=== PATIENT | female | born 1955 | race Hispanic/Latino ===

== ENCOUNTER 2017-02-14 10:08 | Emergency (ER) | payer MEDICAID, SELFPAY ==
[2017-02-14 10:08] VITALS: BMI 34.0
[2017-02-14] MEDS ORDERED: Sodium Chloride 0.9% 1,000 ML IV STA (10:32)
[2017-02-14 11:06] LABS: ADD MANUAL DIFF? NO
--- NOTE | 2017-02-14 11:08 | ED PDOC ---
Arrival/HPI - General Historian: Patient - History of Present Illness Time/Duration: Prior to Arrival, < week Symptom Onset: Gradual Severity Level: 5 - General Chief Complaint: Flu-like Symptoms Time Seen by Provider: 02/14/17 10:09 - History of Present Illness Narrative History of Present Illness (Text): 02/14/17 11:05 This is a 62 year old female with a PMH significant for HTN and HLD presenting with a 3 days history of nausea, vomiting, and diarrhea. The patient states that she has been vomiting approximately every 4 hours for the past three days. The patient notes that she has had 3 episodes of diarrhea that she later re- classified as loose stool. The patient notes that her HTN medication was recently changed from amlodipine to losartan. The patient sites this as the cause of her symptoms and has stopped taking the medication. The patient also has ceased take her cholesterol medication because she has been unable to keep anything down. The patient also notes a headache and an intermittent cough. The patient denies fever, chills, vision changes, tinnitus, chest pain, SOB, changes in urine, and extremity weakness/paresthesias. PMH: HTN, HLD Allergy: NKDA Surg- x 2 Soc- Wuit smoking 30 years ago, denies EtOH/Illicit Drugs (Lucian Turner) Past Medical History - Provider Review Nursing Documentation Reviewed: Yes - Past History Past History: Non-Contributing - Infectious Disease Hx of Infectious Diseases: None - Tetanus Immunization Tetanus Immunization: Up to Date - Cardiac Hx Hyperlipemia: Yes Hx Hypertension: Yes - Pulmonary Hx Asthma: Yes - Neurological Hx Transient Ischemic Attacks (TIA): Yes - Musculoskeletal/Rheumatological Hx Arthritis: Yes Hx Falls: No - Psychiatric Hx Depression: No Hx Substance Use: No - Surgical History Hx Section: Yes (X2) Other/Comment: cyst removal from head - Anesthesia Hx Anesthesia: Yes Hx Anesthesia Reactions: No Hx Malignant Hyperthermia: No - Suicidal Assessment Feels Threatened In Home Enviroment: No Family/Social History - Physician Review Nursing Documentation Reviewed: Yes Family/Social History: No Known Family HX Smoking Status: Former Smoker Hx Alcohol Use: No Hx Substance Use: No Hx Substance Use Treatment: No Allergies/Home Meds Allergies/Adverse Reactions: Allergies No Known Allergies Allergy (Verified 10/08/15 16:11) Home Medications: Home Meds Medication Instructions Recorded Confirmed Labetalol [Trandate] 100 mg PO DAILY 02/14/17 02/14/17 Review of Systems - Physician Review All systems were reviewed & negative as marked: Yes - Review of Systems Constitutional: Fatigue. absent: Fevers Eyes: absent: Vision Changes ENT: absent: Tinnitus Respiratory: Cough. absent: SOB Cardiovascular: absent: Chest Pain Gastrointestinal: Abdominal Pain, Diarrhea, Nausea, Vomiting. absent: Constipation, Hematochezia, Hematemesis Musculoskeletal: absent: Arthralgias Skin: absent: Rash Neurological: Headache (frontal). absent: Dizziness, Focal Weakness Physical Exam Temperature: Afebrile Blood Pressure: Hypertensive Pulse: Regular Respiratory Rate: Normal Appearance: Positive for: Comfortable, Ill-Appearing Pain Distress: None Mental Status: Positive for: Alert and Oriented X 3 - Systems Exam Head: Present: Atraumatic, Normocephalic Pupils: Present: PERRL Extroacular Muscles: Present: EOMI Conjunctiva: Present: Normal Mouth: Present: Moist Mucous Membranes Neck: Present: Normal Range of Motion. No: Lymphadenopathy Respiratory/Chest: Present: Clear to Auscultation, Good Air Exchange. No: Respiratory Distress, Accessory Muscle Use Cardiovascular: Present: Regular Rate and Rhythm, Normal S1, S2. No: Murmurs Abdomen: Present: Tenderness (diffuse lower abdominal pain), Normal Bowel Sounds , Scars. No: Distention, Peritoneal Signs, Rebound, Guarding, McBurney's Point Tender, Rovsing's Sign Present, Mass/Organomegaly Upper Extremity: Present: Normal Inspection, Normal ROM, NORMAL PULSES, Neurovascularly Intact. No: Cyanosis, Edema Lower Extremity: Present: Normal Inspection, NORMAL PULSES, Neurovascularly Intact. No: Edema, CALF TENDERNESS Neurological: Present: GCS=15, CN II-XII Intact Skin: Present: Warm, Dry, Normal Color. No: Rashes Psychiatric: Present: Alert, Oriented x 3 Vital Signs Temp Pulse Resp BP Pulse Ox 02/14/17 15:20 98.0 F 85 18 145/82 99 02/14/17 13:18 98.0 F 90 18 154/97 H 97 02/14/17 10:16 98.6 F 91 H 16 150/107 H 95 Medical Decision Making - Lab Interpretations Interpretation: Abnormal lab values (Hypokalemia- replaced. CBC/CMP/Serology otherwise normal) - RAD Interpretation Reconditioning Associate: ED Physician, Radiologist ED Course and Treatment: 02/14/17 14:32 Impression: This is a 62 year old female with a PMH significant for HTN and HLD presenting with a 3 days history of nausea, vomiting, and diarrhea. The patient appears clinically stable. She had a few episodes of retching, but during her stay she did not vomit. The patient reported an improvement in her symptoms with fluid bolus and zofran. Differential: Viral Gastroenteritis PUD Fle Plan: CBC, CMP, AMylase, Lipase, LDH, Mag, Phos, Influenza CXR CT Abd/Pelv UA Zofran 4mg IV 1L NS x 2 20meq K Prior Visits: 07/22/13- Cholelithiasis NOS Progress Note: The patient was seen and examined at the bedside. The patient clinically improved during the visit. The patient underwent CXR and CT abd/pelv which both returned negative for acute pathology. The patient Did not vomit during her stay. The patient received two 1L boluses of NS for volume resuscitation and 4mg of zofran for nausea. The patient reported a resolution of symptoms. The passed tolerated PO fluid challenge prior to discharge. The patient was seen sleeping comfortably prior to discharge. The patient was medically stablized for discharge. The patient's condition and discharge plan were discussed prior to discharge. The patient is in agreement with the plan. ( Lucian Turner) 02/14/17 16:43 pt seen with resident. abd pain, n/v/d, cough. - ct, labs unremarkable. suspected gastro/viral syndrome. advise outpt f/u and return precautions ( Jordi Pagan) - Lab Interpretations Lab Results: 02/14/17 11:00 02/14/17 11:00 Lab Results 02/14/17 11:00: WBC 8.8, RBC 5.12, Hgb 16.0, Hct 46.5, MCV 90.8, MCH 31.3, MCHC 34.4, RDW 12.4, Plt Count 294, MPV 11.1 H, Gran % 65.8, Lymph % (Auto) 23.9, [place] % (Auto) 10.1 H, Eos % (Auto) 0.1 L, Baso % (Auto) 0.1, Gran # 5.79, Lymph # 2.1, [place] # 0.9 H, Eos # 0.0, Baso # 0.01, Sodium 137, Potassium 3.3 L, Chloride 93 L, Carbon Dioxide 33, Anion Gap 14, BUN 20, Creatinine 0.6, Est GFR ( Amer) > 60, Est GFR (Non-Af Amer) > 60, Random Glucose 143 H, Calcium 9.6, Phosphorus 4.3, Magnesium 1.8, Total Bilirubin 1.1, AST 26, ALT 20, Alkaline Phosphatase 87, Lactate Dehydrogenase 448, Total Protein 7.8, Albumin 4.4, Globulin 3.4, Albumin/Globulin Ratio 1.3, Amylase 67, Lipase 58, Urine Color Dark yellow, Urine Appearance Sl cloudy, Urine pH 5.5, Ur Specific [place] >= 1.030, Urine Protein Trace H, Urine Glucose (UA) Negative, Urine Ketones Trace H, Urine Blood Negative, Urine Nitrate Negative, Urine Bilirubin Small H, Urine Urobilinogen 0.2, Ur Leukocyte Esterase Negative, Urine RBC 0 - 2 , Urine WBC 0 - 2, Ur Epithelial Cells 4 - 5, Urine Bacteria Mod, Influenza Typ A,B (EIA) Negative for flu a/b - RAD Interpretation Narrative RAD Interpretations (Text): 02/14/17 14:40 CXR- LUNGS: The lungs are well inflated and clear. PROCEDURE: CT Abdomen and Pelvis with contrast HISTORY: rlq pain COMPARISON: None. TECHNIQUE: Contrast dose: 100 cc of Omni 350 Radiation dose: Total exam DLP = 844 mGy-cm. FINDINGS: LOWER THORAX: Unremarkable. LIVER: Unremarkable. No gross lesion or ductal dilatation. GALLBLADDER AND BILE DUCTS: Unremarkable. PANCREAS: Unremarkable. No gross lesion or ductal dilatation. SPLEEN: Unremarkable. ADRENALS: Unremarkable. No mass. KIDNEYS AND URETERS: Unremarkable. No hydronephrosis. No solid mass. VASCULATURE: Unremarkable. No aortic aneurysm. BOWEL: Unremarkable. No obstruction. No gross mural thickening. Mild diverticulosis APPENDIX: Normal appendix. PERITONEUM: Unremarkable. No free fluid. No free air. LYMPH NODES: Unremarkable. No enlarged lymph nodes. BLADDER: Unremarkable. REPRODUCTIVE: Unremarkable. BONES: No acute fracture. OTHER FINDINGS: None. IMPRESSION: No acute findings (YueLucian nicholson) Radiology Orders: 02/14/17 10:36 CHEST PORTABLE [RAD] Stat 02/14/17 11:30 ABD & PELVIS IV CONTRAST ONLY [CT] Stat - Medication Orders Current Medication Orders: Discontinued Medications Sodium Chloride (Sodium Chloride 0.9%) 1,000 mls @ 999 mls/hr IV .Q1H1M STA Stop: 02/14/17 11:32 Last Admin: 02/14/17 10:38 Dose: 999 MLS/HR eMAR Start Stop Document 02/14/17 10:38 OCS (Rec: 02/14/17 10:51 OCS [id number]) Intravenous Solution Start Date 02/14/17 Start Time 10:51 End Date 02/14/17 End time 11:52 Total Infusion Time 61 Iodixanol (Visipaque 320 Mg/Ml 100 Ml) Confirm Administered Dose 100 ml IV .STK- MED ONE Stop: 02/14/17 13:55 Iohexol (Omnipaque 350 100 Ml) Confirm Administered Dose 350 mg .ROUTE .STK-MED ONE Stop: 02/14/17 13:21 Ondansetron HCl (Zofran Inj) 4 mg IVP STAT STA Stop: 02/14/17 10:35 Last Admin: 02/14/17 10:51 Dose: 4 MG IVP Administration Document 02/14/17 10:51 OCS (Rec: 02/14/17 10:51 OCS [id number]) Charges for Administration # of IVP Administrations 1 Potassium Chloride (Potassium Chloride Oral Soln) 20 meq PO STAT STA Stop: 02/14/17 12:41 Last Admin: 02/14/17 13:05 Dose: 20 MEQ Disposition/Present on Arrival - Present on Arrival Any Indicators Present on Arrival: No History of DVT/PE: No History of Uncontrolled Diabetes: No Urinary Catheter: No History of Decub. Ulcer: No History Surgical Site Infection Following: None - Disposition Have Diagnosis and Disposition been Completed?: Yes Disposition Time: 14:42 Patient Plan: Discharge - Disposition Diagnosis: Abdominal pain Disposition: HOME/ ROUTINE Condition: GOOD Discharge Instructions (ExitCare): Abdominal Pain (ED), Gastritis (ED), Acute Nausea and Vomiting (ED), Ondansetron (By mouth) Print Language: IRISH Additional Instructions: 1.) Take zofran as needed (every 8 hours) 2.) Maintain adequate hydration 3.) Follow up with PMD following discharge. 4.) If symptoms return, please return to the ED for evaluation 5.) Take all medications in accordance with prescriptions Prescriptions: Ondansetron [Zofran] 4 mg PO Q8H PRN #10 tab PRN Reason: Nausea/Vomiting Referrals: Rosanna Olson MD [Primary Care Provider] - Follow up with primary
[2017-02-14 11:13] LABS: PH,URINE 5.5 (4.7-8.0); URINE BILIRUBIN SMALL (NEGATIVE); URINE BLOOD NEGATIVE (NEGATIVE); URINE GLUCOSE (UA) NEGATIVE (NEGATIVE); URINE KETONE TRACE mg/dL (NEGATIVE); URINE LEUKOCYTE ESTERASE NEGATIVE Leu/uL (NEGATIVE); URINE PROTEIN TRACE mg/dL (<30 mg/dL); URINE UROBILINOGEN 0.2 E.U./dL (<1 E.U./dL)
[2017-02-14 11:17] LABS: URINE APPEARANCE SL CLOUDY (CLEAR); URINE COLOR DARK YELLOW (YELLOW)
[2017-02-14 11:18] LABS: BASO # 0.01 K/mm3 (0.0-2.0); BASO % 0.1 % (0.0-3.0); EOS % 0.1 % (1.5-5.0); GRAN # 5.79 (1.4-6.5); GRAN % 65.8 % (50.0-68.0); HEMATOCRIT 46.5 % (36.0-48.0); LYMPH # 2.1 (1.2-3.4); LYMPH % 23.9 % (22.0-35.0); MEAN CELL VOLUME 90.8 fL (80.0-105.0); MEAN CORPUSCULAR HEMOGLOBIN 31.3 pg (25.0-35.0); MEAN CORPUSCULAR HGB CONC 34.4 g/dl (31.0-37.0); MEAN PLATELET VOLUME 11.1 fl (7.0-11.0); MONO # 0.9 (0.1-0.6); MONO % 10.1 % (1.0-6.0); PLATELET COUNT 294 10^3/uL (120.0-450.0); RED CELL DISTRIBUTION WIDTH 12.4 % (11.5-14.5); WHITE BLOOD COUNT 8.8 10^3/ul (4.5-11.0)
[2017-02-14 11:22] LABS: URINE BACTERIA MOD (NEG); URINE RBC 0 - 2 /hpf (0-2); URINE WBC 0 - 2 /hpf (0-6)
--- NOTE | 2017-02-14 11:24 | RAD ---
HISTORY: Cough COMPARISON: 11/30/2012. FINDINGS: LUNGS: The lungs are well inflated and clear. PLEURA: No significant pleural effusion identified, no pneumothorax apparent. CARDIOVASCULAR: Normal. OSSEOUS STRUCTURES: There is mild dextroscoliosis in the thoracic spine. VISUALIZED UPPER ABDOMEN: Normal. OTHER FINDINGS: None. IMPRESSION: No active pulmonary disease.
[2017-02-14 11:25] LABS: ALB/GLOB RATIO 1.3 (1.1-1.8); ALKALINE PHOSPHATASE 87 U/L (38-133); ALT/SGPT 20 U/L (7-56); AMYLASE 67 U/L (35-125); AST/SGOT 26 U/L (15-39); BILIRUBIN,TOTAL 1.1 mg/dL (0.2-1.3); BLOOD UREA NITROGEN 20 mg/dL (7-21); CALCIUM 9.6 mg/dL (8.4-10.5); CARBON DIOXIDE 33 mmol/L (21-33); CHLORIDE 93 mmol/L (98-107); GFR AFRICAN-AMERICAN > 60; GLUCOSE,RANDOM 143 mg/dL (70-110); LIPASE 58 U/L (23-300); MAGNESIUM 1.8 mg/dL (1.7-2.2); PHOSPHOROUS 4.3 mg/dL (2.5-4.5); POTASSIUM 3.3 mmol/L (3.6-5.0); SODIUM 137 mmol/L (132-148); TOTAL PROTEIN 7.8 g/dL (5.8-8.3)
[2017-02-14] MEDS ORDERED: Potassium Chloride 20 mEq/15 ml LIQ UD PO STA (12:40)
[2017-02-14 13:19] VITALS: RESP 18; TEMP 98
[2017-02-14] MEDS ORDERED: Iohexol 350 MG/100 ML VIAL ONE (13:20)
[2017-02-14] MEDS ORDERED: Iodixanol 320 MG/ML 100 ML BOTTLE IV ONE (13:54)
--- NOTE | 2017-02-14 14:27 | CT ---
PROCEDURE: CT Abdomen and Pelvis with contrast HISTORY: rlq pain COMPARISON: None. TECHNIQUE: Contrast dose: 100 cc of Omni 350 Radiation dose: Total exam DLP = 844 mGy-cm. FINDINGS: LOWER THORAX: Unremarkable. LIVER: Unremarkable. No gross lesion or ductal dilatation. GALLBLADDER AND BILE DUCTS: Unremarkable. PANCREAS: Unremarkable. No gross lesion or ductal dilatation. SPLEEN: Unremarkable. ADRENALS: Unremarkable. No mass. KIDNEYS AND URETERS: Unremarkable. No hydronephrosis. No solid mass. VASCULATURE: Unremarkable. No aortic aneurysm. BOWEL: Unremarkable. No obstruction. No gross mural thickening. Mild diverticulosis APPENDIX: Normal appendix. PERITONEUM: Unremarkable. No free fluid. No free air. LYMPH NODES: Unremarkable. No enlarged lymph nodes. BLADDER: Unremarkable. REPRODUCTIVE: Unremarkable. BONES: No acute fracture. OTHER FINDINGS: None. IMPRESSION: No acute findings
[2017-02-14 15:22] VITALS: BP 145/82; PULSE 85; O2SAT 99
== END 2017-02-14 15:22 | disposition home or self-care (01) ==
LOC: ED 10:08
DX: R10.9 Unspecified abdominal pain (principal); E78.5 Hyperlipidemia, unspecified; I10 Essential (primary) hypertension; Z87.891 Personal history of nicotine dependence
CPT/HCPCS: 71010; 74177; 80053; 81001; 82150; 83615; 83690; 83735; 84100; 85025; 87804; 96361; 96374; 99283; J2405; J7040; Q9967

== ENCOUNTER 2017-02-28 10:31 | Emergency (ER) | payer MEDICAID ==
[2017-02-28 10:31] VITALS: BMI 34.0
[2017-02-28 10:50] VITALS: TEMP 97.3
--- NOTE | 2017-02-28 10:53 | ED PDOC ---
Arrival/HPI - General Time Seen by Provider: 02/28/17 10:38 Historian: Patient - History of Present Illness Narrative History of Present Illness (Text): 02/28/17 10:41 A 62 year old female, whose past medical history includes arthritis, presents to the emergency department complaining of right knee pain for the past 6 days. Patient reports she had a mechanical fall onto the right knee 6 days ago, after which pain began. She states she is unsure how she feel. Pain is worse with walking. She denies any head trauma, hip pain or any other complaints at this time. Patient mention she is scheduled for surgery on 03/20/17 and is asking to have a EKG and Chest X-ray performed for pre-operative clearance. PMD: Dr. Olson Time/Duration: Other (6 days ago) Symptom Onset: Sudden Symptom Course: Unchanged Quality: Other Activities at Onset: Light Modifying Factors (Text): worse when walking Context: Walking Past Medical History - Provider Review Nursing Documentation Reviewed: Yes - Past History Past History: Non-Contributing - Infectious Disease Hx of Infectious Diseases: None - Tetanus Immunization Tetanus Immunization: Up to Date - Cardiac Hx Hyperlipemia: Yes Hx Hypertension: Yes - Pulmonary Hx Asthma: Yes - Neurological Hx Transient Ischemic Attacks (TIA): Yes - Musculoskeletal/Rheumatological Hx Arthritis: Yes Hx Falls: No - Psychiatric Hx Depression: No Hx Substance Use: No - Surgical History Hx Section: Yes (X2) Other/Comment: cyst removal from head - Anesthesia Hx Anesthesia: Yes Hx Anesthesia Reactions: No Hx Malignant Hyperthermia: No - Suicidal Assessment Feels Threatened In Home Enviroment: No Family/Social History - Physician Review Nursing Documentation Reviewed: Yes Family/Social History: Unknown Family HX Smoking Status: Former Smoker Hx Alcohol Use: No Hx Substance Use: No Hx Substance Use Treatment: No Allergies/Home Meds Allergies/Adverse Reactions: Allergies No Known Allergies Allergy (Verified 10/08/15 16:11) Home Medications: Home Meds Medication Instructions Recorded Confirmed amLODIPine [Norvasc] 5 mg PO DAILY 02/28/17 02/28/17 Review of Systems - Physician Review All systems were reviewed & negative as marked: Yes - Review of Systems Constitutional: absent: Other (head trauma) Musculoskeletal: Other (right knee pain; no hip pain) Physical Exam Vital Signs Reviewed: Yes Vital Signs Temp Pulse Resp BP Pulse Ox 02/28/17 12:21 74 18 138/75 97 02/28/17 11:17 79 18 142/77 97 02/28/17 11:03 97.3 F L 83 18 137/114 H 97 02/28/17 10:44 97.3 F L 83 17 137/114 H 98 Temperature: Afebrile Blood Pressure: Hypertensive Pulse: Regular Respiratory Rate: Normal Appearance: Positive for: Well-Appearing, Non-Toxic, Comfortable Pain Distress: None Mental Status: Positive for: Alert and Oriented X 3 - Systems Exam Head: Present: Atraumatic, Normocephalic Conjunctiva: Present: Normal Mouth: Present: Moist Mucous Membranes Neck: Present: Normal Range of Motion Upper Extremity: Present: Normal Inspection. No: Cyanosis, Edema Lower Extremity: Present: NORMAL PULSES, Normal ROM, Tenderness (tenderness with palpation to the right pattela), Neurovascularly Intact. No: Edema, CALF TENDERNESS, Cyanosis, Temperature Abnormalties Neurological: Present: GCS=15, CN II-XII Intact, Speech Normal Skin: Present: Warm, Dry, Normal Color. No: Rashes Psychiatric: Present: Alert, Oriented x 3, Normal Insight, Normal Concentration Medical Decision Making ED Course and Treatment: 02/28/17 10:41 Impression: A 62 year old female with right knee pain after a mechanical fall. Patient also requesting EKG and Chest X-ray. Differential Diagnosis include but are not limited to: fracture vs. sprain Plan: -- EKG -- Chest X-ray -- Right Knee pain -- Reassess and disposition Prior Visits: Notes and results from previous visits were reviewed. The patient last presented to the emergency department on 02/14/17 for evaluation of nausea, vomiting and diarrhea. Progress Notes: 02/28/17 11:02 EKG: Ordered, reviewed, and independently interpreted the EKG. Rate : 69 BPM Rhythm : NSR Interpretation : No ST-segment elevations or depressions, no T-wave inversions, normal intervals. 02/28/17 13:07 x-ray negative for fracture. patient to be discharged with follow up instructions. - RAD Interpretation Radiology Orders: 02/28/17 10:47 CHEST TWO VIEWS (PA/LAT) [RAD] Stat KNEE W PATELLA RIGHT 3 VIEW [RAD] Stat - Scribe Statement The provider has reviewed the documentation as recorded by the Scribe Liza Calderon Provider Scribe Attestation: All medical record entries made by the Scribe were at my direction and personally dictated by me. I have reviewed the chart and agree that the record accurately reflects my personal performance of the history, physical exam, medical decision making, and the department course for this patient. I have also personally directed, reviewed, and agree with the discharge instructions and disposition. Disposition/Present on Arrival - Present on Arrival Any Indicators Present on Arrival: No History of DVT/PE: No History of Uncontrolled Diabetes: No Urinary Catheter: No History Surgical Site Infection Following: None - Disposition Have Diagnosis and Disposition been Completed?: Yes Diagnosis: Contusion of knee, right Disposition: HOME/ ROUTINE Disposition Time: 13:00 Patient Plan: Discharge Condition: GOOD Discharge Instructions (ExitCare): Knee Pain (ED) Additional Instructions: Thank you for letting us take care of you today. Your provider was Dr. Joshi. You were treated for a knee contusion. The emergency medical care you received today was directed at your acute symptoms. If you were prescribed any medication, please fill it and take as directed. It may take several days for your symptoms to resolve. Return to the Emergency Department if your symptoms worsen, do not improve, or if you have any other problems. Please contact your doctor or call one of the physicians/clinics you have been referred to that are listed on the Patient Visit Information form that is included in your discharge packet. Bring any paperwork you were given at discharge with you along with any medications you are taking to your follow up visit. Our treatment cannot replace ongoing medical care by a primary care provider (PCP) outside of the emergency department. Thank you for allowing the [facility] team to be part of your care today. Follow up with your doctor in 3-4 days for re-evaluation.
--- NOTE | 2017-02-28 13:02 | RAD ---
PROCEDURE: Right Knee Radiographs. HISTORY: r/o fx COMPARISON: None. FINDINGS: BONES: Normal. No fracture. JOINTS: Joint space narrowing is seen in the medial joint compartment and the patellofemoral joint JOINT EFFUSION: None. OTHER FINDINGS: None. IMPRESSION: Joint space narrowing in the medial joint compartment and patellofemoral joint
--- NOTE | 2017-02-28 13:03 | RAD ---
HISTORY: r/o infiltrate COMPARISON: 02/14/2017 TECHNIQUE: Chest PA and lateral FINDINGS: LUNGS: No active pulmonary disease. PLEURA: No significant pleural effusion identified. No pneumothorax apparent. CARDIOVASCULAR: Normal. OSSEOUS STRUCTURES: No significant abnormalities. VISUALIZED UPPER ABDOMEN: Normal. OTHER FINDINGS: None. IMPRESSION: No active disease.
[2017-02-28 13:18] VITALS: BP 145/85; PULSE 68; RESP 16; O2SAT 98
--- NOTE | 2017-02-28 14:00 | CARD ---
APPROVED REPORT EKG Measurement Heart [id number] <Conclusion> Normal sinus rhythm Normal ECG
== END 2017-02-28 13:26 | disposition home or self-care (01) ==
LOC: ED 10:31
DX: S80.01XA Contusion of right knee, initial encounter (principal); W19.XXXA Unspecified fall, initial encounter; E78.5 Hyperlipidemia, unspecified; I10 Essential (primary) hypertension; M19.90 Unspecified osteoarthritis, unspecified site; Z86.73 Personal history of transient ischemic attack (TIA), and cerebral infarction without residual deficits; Z87.891 Personal history of nicotine dependence

== ENCOUNTER 2017-05-03 14:09 | Observation (INO) | payer MEDICAID ==
[2017-05-03 14:10] VITALS: BMI 34.0
[2017-05-03 14:41] VITALS: TEMP 98.9
[2017-05-03] MEDS ORDERED: Morphine 4 mg/ml ISec IVP STA (15:12)
[2017-05-03] MEDS ORDERED: Sodium Chloride 0.9% 1,000 ML IV STA (15:12)
[2017-05-03] MEDS ORDERED: Iohexol 240 (50 ml) ONE (15:17)
[2017-05-03 15:40] LABS: ADD MANUAL DIFF? NO
--- NOTE | 2017-05-03 15:42 | ED PDOC ---
Arrival/HPI - General Chief Complaint: Dizziness/Lightheaded Time Seen by Provider: 05/03/17 14:47 Historian: Patient - History of Present Illness Narrative History of Present Illness (Text): 05/03/17 15:36 62 yo F with past medical history of sleep apnea, complains of one-month history of intermittent pressure-like pain in the right lower quadrant that is non-radiating associated with nausea and decreased appetite. Patient presents to the emergency room today because she was unable to sleep at all last night due to the pain, she states that she has not had any type of medical evaluation regarding her current symptoms, she also has never had the following symptoms in the past, although she adds that her current symptoms are not worse than usual. States that she is here because she is tired of experiencing the pain. Otherwise: (-) dizziness - contrary to triage note, (-) chest pain, (-) vomiting , (-) diarrhea, (-) fever, (-) melena, (-) hematochezia, (-) changes in her stool, (-) weight loss, (-) urinary symptoms, (-) vaginal bleeding, (-) vaginal discharge, (-) prior colonoscopy, (-) prior endoscopy. Has history of prior abdominal surgery - 2 C-sections. ROXANA Olson Past Medical History - Provider Review Nursing Documentation Reviewed: Yes - Past History Past History: Non-Contributing - Infectious Disease Hx of Infectious Diseases: None - Tetanus Immunization Tetanus Immunization: Up to Date - Reproductive Menopause: Yes - Cardiac Hx Hypertension: Yes - Pulmonary Hx Asthma: Yes - Neurological Hx Transient Ischemic Attacks (TIA): Yes - HEENT Hx HEENT Disorder: No - Renal Hx Renal Disorder: No - Endocrine/Metabolic Hx Endocrine Disorders: No - Musculoskeletal/Rheumatological Hx Arthritis: Yes Hx Falls: No - Gastrointestinal Hx Gastrointestinal Disorders: No - Genitourinary/Gynecological Hx Genitourinary Disorders: No - Psychiatric Hx Depression: No Hx Substance Use: No - Surgical History Hx Section: Yes (X2) Other/Comment: cyst removal from head - Anesthesia Hx Anesthesia: Yes Hx Anesthesia Reactions: No Hx Malignant Hyperthermia: No - Suicidal Assessment Feels Threatened In Home Enviroment: No Family/Social History - Physician Review Nursing Documentation Reviewed: Yes Family/Social History: No Known Family HX Smoking Status: Former Smoker Hx Alcohol Use: No Hx Substance Use: No Hx Substance Use Treatment: No Allergies/Home Meds Allergies/Adverse Reactions: Allergies No Known Allergies Allergy (Verified 05/03/17 14:41) Home Medications: Home Meds Medication Instructions Recorded Confirmed amLODIPine [Norvasc] 5 mg PO DAILY 02/28/17 05/03/17 Review of Systems - Review of Systems Constitutional: Normal. absent: Fatigue, Weight Change, Fevers Respiratory: Normal. absent: SOB, Cough, Sputum Cardiovascular: Normal. absent: Chest Pain, Palpitations, Edema Gastrointestinal: Normal, Abdominal Pain (chronic RLQ abdominal pain, chronic intermittent burning sensation to the epigastric area radiating to the chest), Nausea, Appetite Changes. absent: Stool Changes Genitourinary Female: Normal. absent: Dysuria, Frequency, Hematuria Musculoskeletal: Normal, Back Pain (chronic low back pain). absent: Arthralgias , Neck Pain Skin: Normal. absent: Rash, Pruritis, Skin Lesions Neurological: Normal. absent: Headache, Dizziness, Focal Weakness Physical Exam - Physical Exam Narrative Physical Exam (Text): 05/03/17 15:43 GENERAL APPEARANCE: Patient is awake, alert, oriented x 3, in mild painful distress. SKIN: Warm, dry; (-) cyanosis. EYES: (-) conjunctival pallor, (-) scleral icterus. ENMT: Mucous membranes dry. NECK: (-) tenderness, (-) stiffness, (-) lymphadenopathy. CHEST AND RESPIRATORY: (-) rales, (-) rhonchi, (-) wheezes; breath sounds equal bilaterally. HEART AND CARDIOVASCULAR: (-) irregularity; (-) murmur, (-) gallop. ABDOMEN AND GI: (-) distention. Bowel sounds active; (+) mild diffuse abdominal tenderness greatest in the right lower quadrant, (-) guarding, (-) rebound, (-) palpable masses, (-) CVA tenderness. EXTREMITIES: (-) deformity, (-) edema, (+) distal pulses. NEURO AND PSYCH: Mental status as above; (-) focal findings. Vital Signs Temp Pulse Resp BP Pulse Ox 05/03/17 19:35 70 19 142/67 99 05/03/17 14:37 98.9 F 75 20 162/75 H 97 Medical Decision Making ED Course and Treatment: 05/03/17 15:44 62 yo F presents with one-month history of intermittent right lower quadrant pain associated with nausea and decreased appetite. Plan: -- Labs -- IV fluids -- Urinalysis -- Morphine / Zofran / Pepcid -- Patient placed in ED observation -- CT AP with by mouth and IV contrast - Lab Interpretations I have reviewed the lab results: Yes Interpretation: All labs normal - RAD Interpretation Narrative RAD Interpretations (Text): 05/03/17 19:54 CT A/P w/ PO and IV contrast: FINDINGS: LIMITATIONS: Exam is somewhat limited by mild streak/motion artifact. LOWER THORAX: Small hiatal hernia. ABDOMEN: LIVER: Fatty infiltration of the liver. GALLBLADDER AND BILE DUCTS: Stable appearance of mild biliary ductal dilatation , with the common bile duct measuring up to 1 cm in diameter. No radiopaque common bile duct stones are visualized. No CT evidence of acute cholecystitis. No radioopaque gallstones are seen. PANCREAS: No CT evidence of acute pancreatitis. SPLEEN: No acute abnormality of the spleen identified. ADRENALS: No acute abnormality of the adrenal glands identified. KIDNEYS AND URETERS: No acute abnormality of the kidneys identified. No evidence of significant hydrouereteronephrosis. STOMACH AND BOWEL: Colonic diverticulosis, with no evidence of acute diverticulitis. Otherwise, no significant abnormality of the bowel is identified. No evidence of bowel obstruction. APPENDIX: Appendix is seen, and is within normal limits in appearance. Appendix is seen, and is within normal limits in appearance. PELVIS: BLADDER: No acute abnormality of the bladder identified. REPRODUCTIVE: The uterus again appears right-sided in location, similar to on the prior exam. No evidence of large adnexal masses. ABDOMEN and PELVIS: INTRAPERITONEAL SPACE: No evidence of free intraperitoneal air or fluid. BONES/JOINTS: No acute fractures or other acute bony abnormality noted. SOFT TISSUES: No acute abnormality of the visualized soft tissues is seen. VASCULATURE: No evidence of abdominal aortic aneurysm. No evidence of periaortic hemorrhage. LYMPH NODES: No evidence of diffuse lymphadenopathy. IMPRESSION: - No evidence of significant acute process. - Mild biliary ductal dilatation, cause not identified. Recommend correlation with LFTs for laboratory evidence of biliary obstruction. - See above for remaining findings. Radiology Orders: 05/03/17 15:12 ABD PELVIS PO & IV CONTRAST [CT] Stat - Medication Orders Current Medication Orders: Discontinued Medications Famotidine (Pepcid) 20 mg IVP STAT STA Stop: 05/03/17 15:13 Last Admin: 05/03/17 15:42 Dose: 20 mg Sodium Chloride (Sodium Chloride 0.9%) 1,000 mls @ 1,000 mls/hr IV .Q1H STA Stop: 05/03/17 16:11 Last Admin: 05/03/17 15:39 Dose: 1,000 mls/hr Iohexol (Omnipaque 240 (50 Ml)) Confirm Administered Dose 50 ml .ROUTE .STK-MED ONE Stop: 05/03/17 15:18 Iohexol (Omnipaque 350 100 Ml) Confirm Administered Dose 350 mg .ROUTE .STK-MED ONE Stop: 05/03/17 18:25 Morphine Sulfate (Morphine) 4 mg IVP STAT STA Stop: 05/03/17 15:13 Last Admin: 05/03/17 15:42 Dose: 4 mg Ondansetron HCl (Zofran Inj) 4 mg IVP STAT STA Stop: 05/03/17 15:13 Last Admin: 05/03/17 15:42 Dose: 4 mg ED OBSERVATION Date of observation admission: 05/03/17 Time of observation admission: 15:15 - Observation admission statement Patient is being placed in observation because:: Due to her chronic abdominal pain which continues to persist. - Goals of Observation Goals of observation are:: To observe the patient's signs and symptoms. - Progress Note Progress Note: EKG: NSR at 81 bpm, normal axis, (-) acute ST changes, as read by ZHANG. 05/03/17 16:48 Labs reviewed and are noted to be within normal limits, WBC is normal, LFTs are normal, BUN/creatinine is also normal, UA is negative. On reevaluation, patient is laying in bed comfortably in no acute distress, reports improvement of abdominal pain. Patient is tolerating by mouth contrast for CT, CT is still pending at this time. 05/03/17 20:24 CT of the abdomen and pelvis result shows no acute findings. On reevaluation, patient is laying in bed comfortably in no acute distress. Patient ports no abdominal pain at this time. On exam, abdomen remains soft with no tenderness, no guarding, no rebound. Diagnostic results discussed the patient in great detail. Based on history, exam and diagnostic results plan will be for outpatient follow -up with PMD and with GI referral. Prescription provided. Patient states she fully agrees with and understands discharge instructions. States that she agrees with the plan and disposition. Verbalized and repeated discharge instructions and plan. I have given the patient opportunity to ask any additional questions. Follow up with primary care physician and GI referral in 1-2 days without fail. Advised to take medication as prescribed. Return to the emergency room at any time for any new or worsening symptoms. - PA / OPTOMETRY TEACHER / Resident Statement MD/DO has reviewed & agrees with the documentation as recorded. Disposition/Present on Arrival - Present on Arrival Any Indicators Present on Arrival: No History of DVT/PE: No History of Uncontrolled Diabetes: No Urinary Catheter: No History of Decub. Ulcer: No History Surgical Site Infection Following: None - Disposition Have Diagnosis and Disposition been Completed?: Yes Diagnosis: Abdominal pain, GERD (gastroesophageal reflux disease) Disposition: HOME/ ROUTINE Disposition Time: 15:15 (Patient was placed in ED observation. ) Patient Plan: Discharge Condition: GOOD
[2017-05-03 15:58] LABS: BASO # 0.02 K/mm3 (0.0-2.0); BASO % 0.3 % (0.0-3.0); EOS # 0.1 (0.0-0.7); EOS % 1.2 % (1.5-5.0); GRAN % 48.2 % (50.0-68.0); HEMATOCRIT 39.1 % (36.0-48.0); LYMPH # 2.9 (1.2-3.4); LYMPH % 42.6 % (22.0-35.0); MEAN CELL VOLUME 91.6 fL (80.0-105.0); MEAN CORPUSCULAR HEMOGLOBIN 31.6 pg (25.0-35.0); MEAN CORPUSCULAR HGB CONC 34.5 g/dl (31.0-37.0); MEAN PLATELET VOLUME 10.8 fl (7.0-11.0); MONO # 0.5 (0.1-0.6); MONO % 7.7 % (1.0-6.0); PLATELET COUNT 253 10^3/uL (120.0-450.0); RED CELL DISTRIBUTION WIDTH 12.7 % (11.5-14.5); WHITE BLOOD COUNT 6.9 10^3/ul (4.5-11.0)
[2017-05-03 16:14] LABS: PARTIAL THROMBOPLASTIN TIME 21.8 Seconds (23.7-30.8)
[2017-05-03 16:27] LABS: ALB/GLOB RATIO 1.3 (1.1-1.8); ALKALINE PHOSPHATASE 71 U/L (38-133); ALT/SGPT 31 U/L (7-56); AST/SGOT 22 U/L (15-39); BILIRUBIN,TOTAL 0.7 mg/dL (0.2-1.3); BLOOD UREA NITROGEN 13 mg/dL (7-21); CALCIUM 9.5 mg/dL (8.4-10.5); CARBON DIOXIDE 24 mmol/L (21-33); CHLORIDE 103 mmol/L (98-107); GFR AFRICAN-AMERICAN > 60; GLUCOSE,RANDOM 91 mg/dL (70-110); LIPASE 270 U/L (23-300); SODIUM 135 mmol/L (132-148); TOTAL PROTEIN 6.5 g/dL (5.8-8.3)
[2017-05-03 16:37] LABS: URINE BILIRUBIN NEGATIVE (NEGATIVE); URINE BLOOD NEGATIVE (NEGATIVE); URINE GLUCOSE (UA) NEGATIVE (NEGATIVE); URINE KETONE TRACE mg/dL (NEGATIVE); URINE LEUKOCYTE ESTERASE NEGATIVE Leu/uL (NEGATIVE); URINE PROTEIN NEGATIVE mg/dL (<30 mg/dL); URINE UROBILINOGEN 0.2 E.U./dL (<1 E.U./dL)
[2017-05-03 16:39] LABS: URINE APPEARANCE CLEAR (CLEAR); URINE COLOR YELLOW (YELLOW)
[2017-05-03] MEDS ORDERED: Iohexol 350 MG/100 ML VIAL ONE (18:24)
--- NOTE | 2017-05-03 19:24 | CT ---
EXAM: CT Abdomen and Pelvis With Intravenous Contrast CLINICAL HISTORY: 62 years old, female; Pain; Abdominal pain; Localized; Right lower quadrant (rlq); Prior surgery; Surgery type: (2) c-sections; Additional info: Rlq pain x 1 month TECHNIQUE: Axial computed tomography images of the abdomen and pelvis with intravenous contrast. This CT exam was performed using one or more of the following dose reduction techniques: automated exposure control, adjustment of the mA and/or kV according to patient size, and/or use of iterative reconstruction technique. Coronal and sagittal reformatted images were created and reviewed. CONTRAST: 95 mL of OMNI 350 administered intravenously. EXAM DATE/TIME: 05/03/2017 3:12 PM COMPARISON: Prior CT abdomen and pelvis of 02/14/2017 FINDINGS: LIMITATIONS: Exam is somewhat limited by mild streak/motion artifact. LOWER THORAX: Small hiatal hernia. ABDOMEN: LIVER: Fatty infiltration of the liver. GALLBLADDER AND BILE DUCTS: Stable appearance of mild biliary ductal dilatation, with the common bile duct measuring up to 1 cm in diameter. No radiopaque common bile duct stones are visualized. No CT evidence of acute cholecystitis. No radioopaque gallstones are seen. PANCREAS: No CT evidence of acute pancreatitis. SPLEEN: No acute abnormality of the spleen identified. ADRENALS: No acute abnormality of the adrenal glands identified. KIDNEYS AND URETERS: No acute abnormality of the kidneys identified. No evidence of significant hydrouereteronephrosis. STOMACH AND BOWEL: Colonic diverticulosis, with no evidence of acute diverticulitis. Otherwise, no significant abnormality of the bowel is identified. No evidence of bowel obstruction. APPENDIX: Appendix is seen, and is within normal limits in appearance. Appendix is seen, and is within normal limits in appearance. PELVIS: BLADDER: No acute abnormality of the bladder identified. REPRODUCTIVE: The uterus again appears right-sided in location, similar to on the prior exam. No evidence of large adnexal masses. ABDOMEN and PELVIS: INTRAPERITONEAL SPACE: No evidence of free intraperitoneal air or fluid. BONES/JOINTS: No acute fractures or other acute bony abnormality noted. SOFT TISSUES: No acute abnormality of the visualized soft tissues is seen. VASCULATURE: No evidence of abdominal aortic aneurysm. No evidence of periaortic hemorrhage. LYMPH NODES: No evidence of diffuse lymphadenopathy. IMPRESSION: - No evidence of significant acute process. - Mild biliary ductal dilatation, cause not identified. Recommend correlation with LFTs for laboratory evidence of biliary obstruction. - See above for remaining findings.
[2017-05-03 19:38] VITALS: BP 142/67; PULSE 70; RESP 19; O2SAT 99
--- NOTE | 2017-05-04 18:55 | CARD ---
APPROVED REPORT EKG Measurement Heart [id number] <Conclusion> Normal sinus rhythm Normal ECG
== END 2017-05-03 20:43 | disposition home or self-care (01) ==
LOC: ED 14:09 → EROBSV 15:15
PROVIDERS: ADMIT Student in an Organized Health Care Education/Training Program; ATTEND Student in an Organized Health Care Education/Training Program
DX: K21.9 Gastro-esophageal reflux disease without esophagitis (principal); R10.9 Unspecified abdominal pain
CPT/HCPCS: 74177; 80053; 81003; 83690; 85025; 85610; 85730; 93005; 96374; 96375; 99285; G0378; J2270; J2405; J7040; Q9966; Q9967

== ENCOUNTER 2017-09-14 10:51 | Emergency (ER) | payer MEDICAID ==
[2017-09-14 10:51] VITALS: BMI 34.0
[2017-09-14 10:56] VITALS: RESP 18; TEMP 98; O2SAT 97
--- NOTE | 2017-09-14 11:37 | ED PDOC ---
Arrival/HPI - General Chief Complaint: Back Pain Time Seen by Provider: 09/14/17 11:19 Historian: Patient - History of Present Illness Narrative History of Present Illness (Text): 09/14/17 11:22 A 62 year old female presents to the emergency department complaining of right lower back pain radiating to RLQ and down to leg for 3 days. Patient reports experience similar symptoms in the past, but it was not as intense as it is now. Patient denies of any nausea, vomiting, diarrhea, urinary symptoms, any injuries or trauma, or any other complaints. Also, patient mentions having taken Ibuprofen and had mild improvement, but continues to experience symptoms. PMD does not recall name Past Medical History - Provider Review Nursing Documentation Reviewed: Yes - Past History Past History: Non-Contributing - Infectious Disease Hx of Infectious Diseases: None - Tetanus Immunization Tetanus Immunization: Up to Date - Cardiac Hx Cardiac Disorders: Yes Hx Hypertension: Yes - Pulmonary Hx Respiratory Disorders: Yes Hx Asthma: Yes - Neurological Hx Neurological Disorder: Yes Hx Transient Ischemic Attacks (TIA): Yes - HEENT Hx HEENT Disorder: No - Renal Hx Renal Disorder: No - Endocrine/Metabolic Hx Endocrine Disorders: No - Hematological/Oncological Hx Blood Disorders: No - Integumentary Hx Dermatological Disorder: No - Musculoskeletal/Rheumatological Hx Musculoskeletal Disorders: Yes Hx Arthritis: Yes Hx Back Pain: Yes Hx Falls: No - Gastrointestinal Hx Gastrointestinal Disorders: No - Genitourinary/Gynecological Hx Genitourinary Disorders: No - Psychiatric Hx Depression: No Hx Substance Use: No - Surgical History Hx Section: Yes (X2) Hx Orthopedic Surgery: Yes (L foot) Other/Comment: cyst removal from head - Anesthesia Hx Anesthesia: Yes Hx Anesthesia Reactions: No Hx Malignant Hyperthermia: No - Suicidal Assessment Feels Threatened In Home Enviroment: No Family/Social History - Physician Review Nursing Documentation Reviewed: Yes Family/Social History: No Known Family HX Smoking Status: Former Smoker Hx Alcohol Use: No Hx Substance Use: No Hx Substance Use Treatment: No Allergies/Home Meds Allergies/Adverse Reactions: Allergies No Known Allergies Allergy (Verified 09/14/17 10:53) Home Medications: Home Meds Medication Instructions Recorded Confirmed amLODIPine [Norvasc] 5 mg PO DAILY 02/28/17 09/14/17 Review of Systems - Physician Review All systems were reviewed & negative as marked: Yes - Review of Systems Constitutional: Normal. absent: Fatigue, Weight Change, Fevers, Other (no injuries or trauma) Gastrointestinal: Normal, Abdominal Pain (RLQ pain radiating from right lower back pain). absent: Stool Changes, Appetite Changes Genitourinary Female: Normal. absent: Dysuria, Frequency, Hematuria Musculoskeletal: Normal, Back Pain (right lower back pain radiating to RLQ and down the leg), Other (leg pain radiating from back pain and abdominal pain). absent: Arthralgias, Neck Pain, Joint Swelling Skin: Normal. absent: Rash, Pruritis, Skin Lesions Neurological: Normal. absent: Headache, Dizziness, Focal Weakness Physical Exam Vital Signs Reviewed: Yes Vital Signs Temp Pulse Resp BP Pulse Ox 09/14/17 12:00 78 18 138/79 97 09/14/17 10:55 98.0 F 85 18 142/85 97 Temperature: Afebrile Blood Pressure: Normal Pulse: Regular Respiratory Rate: Normal Appearance: Positive for: Well-Appearing Pain Distress: Mild Mental Status: Positive for: Alert and Oriented X 3 - Systems Exam Head: Present: Atraumatic, Normocephalic Pupils: Present: PERRL Extroacular Muscles: Present: EOMI Conjunctiva: Present: Normal Mouth: Present: Moist Mucous Membranes Neck: Present: Normal Range of Motion Respiratory/Chest: Present: Clear to Auscultation, Good Air Exchange. No: Respiratory Distress, Accessory Muscle Use Cardiovascular: Present: Regular Rate and Rhythm, Normal S1, S2. No: Murmurs Abdomen: Present: Normal Bowel Sounds. No: Tenderness, Distention, Peritoneal Signs Back: Present: Normal Inspection, Paraspinal Tenderness (paralumbar tenderness bilaterally, R>L). No: CVA Tenderness, Midline Tenderness, Pain with Leg Raise Upper Extremity: Present: Normal Inspection, Normal ROM, NORMAL PULSES, Neurovascularly Intact. No: Cyanosis, Edema, Tenderness Lower Extremity: Present: Normal Inspection, NORMAL PULSES, Normal ROM, Neurovascularly Intact. No: Edema, Tenderness Neurological: Present: GCS=15, CN II-XII Intact, Speech Normal Skin: Present: Warm, Dry, Normal Color. No: Rashes Psychiatric: Present: Alert, Oriented x 3, Normal Insight, Normal Concentration Medical Decision Making ED Course and Treatment: 09/14/17 12:00 Impression: 62 year old female with right lower back pain radiating to RLQ down to leg. Based on history and exam, likely sciatica. Plan: -- Tylenol -- Toradol -- Reassess and disposition Prior Visits: Notes and results from previous visits were reviewed. Patient was last seen in the emergency department on 05/03/2017 intermittent pressure-like pain in the right lower quadrant that is non-radiating Progress Notes: On re-evaluation, patient reports improvement of pain. On exam, patient is sitting in bed comfortably in no acute distress. Patient able to stand and ambulate in the ER. Diagnosis of sciatica d/w the patient. Patient advised to follow up with urology referral in 1-2 days without fail. Advised to take medication as prescribed. Return to the emergency room at any time for any new or worsening symptoms. Patient states she fully agrees with and understands discharge instructions. States that she agrees with the plan and disposition. Verbalized and repeated discharge instructions and plan. I have given the patient opportunity to ask any additional questions. - Medication Orders Current Medication Orders: Discontinued Medications Acetaminophen (Tylenol 325mg Tab) 975 mg PO STAT STA Stop: 09/14/17 11:21 Last Admin: 09/14/17 11:30 Dose: 975 mg MAR Pain/Vitals Document 09/14/17 11:30 GMD (Rec: 09/14/17 11:30 [place] [facility] [id number][place] Presence of Pain Presence of Pain Yes Ketorolac Tromethamine (Toradol) 60 mg IM STAT STA Stop: 09/14/17 11:21 Last Admin: 09/14/17 11:30 Dose: 60 mg MAR Pain Assessment Document 09/14/17 11:30 GMD (Rec: 09/14/17 11:30 [place] [facility] [id number][place] Pain Reassessment Is this a pain reassessment? No Presence of Pain Presence of Pain Yes Location Left, Right or Bilateral Right Upper or Lower Lower Pain Location Body Site Back IM Administration Charges Document 09/14/17 11:30 GMD (Rec: 09/14/17 11:30 [place]MD [facility] [id number]) Injection Site MAR Injection Site Right Gluteus Patricio Charges for Administration # of IM Administrations 1 - PA / LINOTYPE MACHINIST APPRENTICE / Resident Statement MD/DO has reviewed & agrees with the documentation as recorded. - Scribe Statement The provider has reviewed the documentation as recorded by the Manohar Jaimes Provider Scribe Attestation: All medical record entries made by the Scribe were at my direction and personally dictated by me. I have reviewed the chart and agree that the record accurately reflects my personal performance of the history, physical exam, medical decision making, and the department course for this patient. I have also personally directed, reviewed, and agree with the discharge instructions and disposition. Disposition/Present on Arrival - Present on Arrival Any Indicators Present on Arrival: No History of DVT/PE: No History of Uncontrolled Diabetes: No Urinary Catheter: No History of Decub. Ulcer: No History Surgical Site Infection Following: None - Disposition Have Diagnosis and Disposition been Completed?: Yes Diagnosis: Sciatica Disposition: HOME/ ROUTINE Disposition Time: 11:25 Patient Plan: Discharge Condition: STABLE Discharge Instructions (ExitCare): Sciatica (ED) Print Language: FAROESE Additional Instructions: Thank you for letting us take care of you today. You were treated for sciatica. The emergency medical care you received today was directed at your acute symptoms. If you were prescribed any medication, please fill it and take as directed. It may take several days for your symptoms to resolve. Return to the Emergency Department if your symptoms worsen, do not improve, or if you have any other problems. Please contact your doctor in 2 days for re-evaluation and follow up. Bring any paperwork you were given at discharge with you along with any medications you are taking to your follow up visit. Our treatment cannot replace ongoing medical care by a primary care provider (PCP) outside of the emergency department. Thank you for allowing the [facility] team to be part of your care today. Prescriptions: Cyclobenzaprine [Cyclobenzaprine HCl] 10 mg PO TID PRN #15 tab PRN Reason: Muscle Spasm Meloxicam [Mobic] 15 mg PO DAILY #20 tab traMADol [Ultram] 50 mg PO TID PRN #15 tab PRN Reason: Pain, Moderate (4-7) Referrals: [facility] Adam Rechencho, [Primary Care Provider] - Follow up with primary Forms: [place] (H[place]ian)
[2017-09-14 12:11] VITALS: BP 138/79; PULSE 78
== END 2017-09-14 12:16 | disposition home or self-care (01) ==
LOC: ED 10:51
DX: M54.30 Sciatica, unspecified side (principal); I10 Essential (primary) hypertension
CPT/HCPCS: 96372; 99284; J1885

== ENCOUNTER 2017-09-18 01:58 | Emergency (ER) | payer MEDICAID ==
[2017-09-18 01:59] VITALS: BMI 34.0
[2017-09-18 02:10] VITALS: BP 160/94; PULSE 93; RESP 17; TEMP 98.4; O2SAT 96
[2017-09-18] MEDS ORDERED: Morphine 4 mg/ml ISec IVP STA (02:15)
[2017-09-18] MEDS ORDERED: Sodium Chloride 0.9% 1,000 ML IV STA (02:15)
--- NOTE | 2017-09-18 02:23 | ED PDOC ---
Arrival/HPI - General Chief Complaint: Abdominal Pain Time Seen by Provider: 09/18/17 01:59 Historian: Patient - History of Present Illness Narrative History of Present Illness (Text): 09/18/17 02:23 A 62 year old female, whose past medical history includes hypertension, was brought in by EMS to the emergency department complaining of right lower quadrant abdominal pain. Patient reports she was seen in the emergency department a few days ago for back pain. Notes she felt sick after she was given Tramadol. Denies taking any medications for pain. Denies any history of abdominal surgeries. Notes some nausea but denies any fever or any other Patient complaints at this time. PMD: Dr. Olson Symptom Onset: Sudden Symptom Course: Unchanged Activities at Onset: Rest Context: Home Associated Symptoms (Text): nausea Past Medical History - Provider Review Nursing Documentation Reviewed: Yes - Past History Past History: Non-Contributing - Infectious Disease Hx of Infectious Diseases: None - Tetanus Immunization Tetanus Immunization: Up to Date - Reproductive Menopause: Yes - Cardiac Hx Cardiac Disorders: Yes Hx Hypertension: Yes - Pulmonary Hx Respiratory Disorders: Yes Hx Asthma: Yes - Neurological Hx Neurological Disorder: Yes - HEENT Hx HEENT Disorder: No - Renal Hx Renal Disorder: No - Endocrine/Metabolic Hx Endocrine Disorders: No - Hematological/Oncological Hx Blood Disorders: No - Integumentary Hx Dermatological Disorder: No - Musculoskeletal/Rheumatological Hx Musculoskeletal Disorders: Yes Hx Arthritis: Yes Hx Back Pain: Yes Hx Falls: No - Gastrointestinal Hx Gastrointestinal Disorders: No - Genitourinary/Gynecological Hx Genitourinary Disorders: No - Psychiatric Hx Psychophysiologic Disorder: No Hx Depression: No Hx Substance Use: No - Surgical History Hx Section: Yes (X2) Hx Orthopedic Surgery: Yes (L foot) Other/Comment: cyst removal from head - Anesthesia Hx Anesthesia: Yes Hx Anesthesia Reactions: No Hx Malignant Hyperthermia: No - Suicidal Assessment Feels Threatened In Home Enviroment: No Family/Social History - Physician Review Nursing Documentation Reviewed: Yes Family/Social History: No Known Family HX Smoking Status: Former Smoker Hx Alcohol Use: No Hx Substance Use: No Hx Substance Use Treatment: No Allergies/Home Meds Allergies/Adverse Reactions: Allergies No Known Allergies Allergy (Verified 09/18/17 02:09) Home Medications: Home Meds Medication Instructions Recorded Confirmed amLODIPine [Norvasc] 10 mg PO DAILY 02/28/17 09/18/17 Review of Systems - Physician Review All systems were reviewed & negative as marked: Yes - Review of Systems Constitutional: absent: Fevers Gastrointestinal: Abdominal Pain (RLQ), Nausea Physical Exam Vital Signs Reviewed: Yes Vital Signs Temp Pulse Resp BP Pulse Ox 09/18/17 02:09 98.4 F 93 H 17 160/94 H 96 Temperature: Afebrile Blood Pressure: Hypertensive Pulse: Regular Respiratory Rate: Normal Appearance: Positive for: Well-Appearing, Non-Toxic, Comfortable Pain Distress: Mild Mental Status: Positive for: Alert and Oriented X 3 - Systems Exam Head: Present: Atraumatic, Normocephalic Pupils: Present: PERRL Extroacular Muscles: Present: EOMI Conjunctiva: Present: Normal Mouth: Present: Moist Mucous Membranes Neck: Present: Normal Range of Motion Respiratory/Chest: Present: Clear to Auscultation, Good Air Exchange. No: Respiratory Distress, Accessory Muscle Use Cardiovascular: Present: Regular Rate and Rhythm, Normal S1, S2. No: Murmurs Abdomen: Present: Tenderness (RLQ), Normal Bowel Sounds. No: Distention, Peritoneal Signs Back: Present: Normal Inspection Upper Extremity: Present: Normal Inspection. No: Cyanosis, Edema Lower Extremity: Present: Normal Inspection. No: Edema Neurological: Present: GCS=15, CN II-XII Intact, Speech Normal Skin: Present: Warm, Dry, Normal Color. No: Rashes Psychiatric: Present: Alert, Oriented x 3, Normal Insight, Normal Concentration Medical Decision Making ED Course and Treatment: 09/18/17 02:21 Impression: A 62 year old female with right lower quadrant abdominal pain. Differential Diagnosis included but are not limited to: RLQ abdominal pain r/o appendicitis Plan: -- CT abd/pelvis -- labs -- Urinalysis -- Morphine, IV fluids, Zofran -- Reassess and disposition Prior Visits: Notes and results from previous visits were reviewed. Patient was last seen in the emergency department on 09/14/17 for evaluation of right lower back pain. Progress Notes: CT Abdomen and Pelvis With Intravenous Contrast FINDINGS: The gallbladder is distended however no gallstones are identified. There is mild intrahepatic biliary duct dilation. The common bile duct is mildly dilated measuring 9 mm. The pancreatic duct is mildly dilated measuring 4 millimeters. Correlation with laboratory values is recommended. Questionable small 1.2 cm faint area of low attenuation in the pancreatic uncinate process coronal image 56 axial image 68. Followup is recommended to assess for stability and exclude developing lesion. The spleen is normal. No hydronephrosis or perinephric stranding. Sigmoid diverticula are noted. A normal appendix is identified coronal images 54 through 59. The uterus is again seen to be right-sided. No adnexal masses identified. IMPRESSION: Mild biliary duct dilation as discussed above.Recommend correlation with laboratory values. Questionable area of low attenuation pancreatic uncinate process for which followup is recommended. Dictated and Authenticated by: Beth Parnell MD 09/18/2017 5:02 AM Eastern Time ([place] & [place]) 09/19/17 07:[address] neg. labs unremarkable. pt feels better for dc return precautions advised - Lab Interpretations Lab Results: 09/18/17 02:30 09/18/17 02:30 Lab Results 09/18/17 03:50: Urine Color Yellow, Urine Appearance Clear, Urine pH 6.0, Ur Specific [place] 1.025, Urine Protein Negative, Urine Glucose (UA) Negative, Urine Ketones Negative, Urine Blood Negative, Urine Nitrate Negative, Urine Bilirubin Negative, Urine Urobilinogen 1.0 H, Ur Leukocyte Esterase Negative 09/18/17 02:30: Sodium 138, Potassium 4.1, Chloride 101, Carbon Dioxide 28, Anion Gap 13, BUN 18, Creatinine 0.5 L, Est GFR ( Amer) > 60, Est GFR ( Non-Af Amer) > 60, Random Glucose 170 H, Calcium 9.1, Total Bilirubin 0.7, AST 19, ALT 39, Alkaline Phosphatase 68, Total Protein 6.5, Albumin 4.0, Globulin 2.5, Albumin/Globulin Ratio 1.6, Lipase 80 09/18/17 02:30: PT 10.4, INR 0.96, APTT 27.9 09/18/17 02:30: WBC 6.3, RBC 4.70, Hgb 14.6, Hct 43.4, MCV 92.3, MCH 31.1, MCHC 33.6, RDW 12.6, Plt Count 266, MPV 11.0, Gran % 54.0, Lymph % (Auto) 34.5, [place] % (Auto) 9.9 H, Eos % (Auto) 1.4 L, Baso % (Auto) 0.2, Gran # 3.38, Lymph # 2.2 , [place] # 0.6, Eos # 0.1, Baso # 0.01 I have reviewed the lab results: Yes - RAD Interpretation Radiology Orders: 09/18/17 02:16 ABD & PELVIS IV CONTRAST ONLY [CT] Stat - Medication Orders Current Medication Orders: Discontinued Medications Sodium Chloride (Sodium Chloride 0.9%) 1,000 mls @ 999 mls/hr IV .Q1H1M STA Stop: 09/18/17 03:15 Last Admin: 09/18/17 02:43 Dose: 999 mls/hr eMAR Start Stop Document 09/18/17 02:43 [facility] (Rec: 09/18/17 02:43 [facility] [id number]) Intravenous Solution Start Date 09/18/17 Start Time 02:40 End Date 09/18/17 End time 03:40 Total Infusion Time 60 Morphine Sulfate (Morphine) 4 mg IVP STAT STA Stop: 09/18/17 02:16 Last Admin: 09/18/17 02:43 Dose: 4 mg MAR Pain Assessment Document 09/18/17 02:43 [facility] (Rec: 09/18/17 02:44 [facility] [id number]) Pain Reassessment Is this a pain reassessment? No Sleep Is patient sleeping during reassessment? No Presence of Pain Presence of Pain Yes Pain Scale Used Pain Scale Used Numeric Location Left, Right or Bilateral Right Pain Location Body Site Abdomen Description Description Constant Intensity of Pain at present 8 Pain Behavior Crying Guarding IVP Administration Document 09/18/17 02:43 [facility] (Rec: 09/18/17 02:44 [facility] [id number]) Charges for Administration # of IVP Administrations 1 Morphine Sulfate (Morphine) 2 mg IVP STAT STA Stop: 09/18/17 03:27 Ondansetron HCl (Zofran Inj) 4 mg IVP STAT STA Stop: 09/18/17 02:16 Last Admin: 09/18/17 02:35 Dose: 4 mg IVP Administration Document 09/18/17 02:35 [facility] (Rec: 09/18/17 02:43 [facility] [id number]) Charges for Administration # of IVP Administrations 1 - Scribe Statement The provider has reviewed the documentation as recorded by the Manohar Baig Provider Scribe Attestation: All medical record entries made by the Scribe were at my direction and personally dictated by me. I have reviewed the chart and agree that the record accurately reflects my personal performance of the history, physical exam, medical decision making, and the department course for this patient. I have also personally directed, reviewed, and agree with the discharge instructions and disposition. Disposition/Present on Arrival - Present on Arrival Any Indicators Present on Arrival: No History of DVT/PE: No History of Uncontrolled Diabetes: No Urinary Catheter: No History of Decub. Ulcer: No History Surgical Site Infection Following: None - Disposition Have Diagnosis and Disposition been Completed?: Yes Diagnosis: Abdominal pain Disposition: HOME/ ROUTINE Disposition Time: 04:00 Condition: STABLE Discharge Instructions (ExitCare): Acute Abdominal Pain (ED) Print Language: BULGARIAN Additional Instructions: please see specialist. return to er with worsening symptoms or concerns. Referrals: Rosanna Olson MD [Primary Care Provider] - Follow up with primary Segundo Castro MD [Staff Provider] - Follow up with primary Forms: [employer] (Danish)
[2017-09-18] MEDS ORDERED: Morphine 2 mg/ml ISec IVP STA (03:26)
[2017-09-18 03:33] LABS: BASO # 0.01 K/mm3 (0.0-2.0); BASO % 0.2 % (0.0-3.0); EOS # 0.1 (0.0-0.7); EOS % 1.4 % (1.5-5.0); GRAN # 3.38 (1.4-6.5); HEMATOCRIT 43.4 % (36.0-48.0); LYMPH # 2.2 (1.2-3.4); LYMPH % 34.5 % (22.0-35.0); MEAN CELL VOLUME 92.3 fl (80.0-105.0); MEAN CORPUSCULAR HEMOGLOBIN 31.1 pg (25.0-35.0); MEAN CORPUSCULAR HGB CONC 33.6 g/dl (31.0-37.0); MONO # 0.6 (0.1-0.6); MONO % 9.9 % (1.0-6.0); RED CELL DISTRIBUTION WIDTH 12.6 % (11.5-14.5); WHITE BLOOD COUNT 6.3 10^3/ul (4.5-11.0)
[2017-09-18 03:37] LABS: ALB/GLOB RATIO 1.6 (1.1-1.8); ALKALINE PHOSPHATASE 68 U/L (38-126); ALT/SGPT 39 U/L (7-56); AST/SGOT 19 U/L (14-36); BILIRUBIN,TOTAL 0.7 mg/dL (0.2-1.3); BLOOD UREA NITROGEN 18 mg/dL (7-21); CALCIUM 9.1 mg/dL (8.4-10.5); CARBON DIOXIDE 28 mmol/L (21-33); CHLORIDE 101 mmol/L (95-110); GFR AFRICAN-AMERICAN > 60; GLUCOSE,RANDOM 170 mg/dL (70-110); LIPASE 80 U/L (23-300); POTASSIUM 4.1 mmol/L (3.6-5.0); SODIUM 138 mmol/L (132-148); TOTAL PROTEIN 6.5 g/dL (5.8-8.3)
[2017-09-18 03:41] LABS: INR 0.96 (0.93-1.08); PARTIAL THROMBOPLASTIN TIME 27.9 Seconds (25.1-36.5)
[2017-09-18] MEDS ORDERED: Iohexol 350 MG/100 ML VIAL ONE (03:50)
[2017-09-18 04:11] LABS: URINE BILIRUBIN NEGATIVE (NEGATIVE); URINE BLOOD NEGATIVE (NEGATIVE); URINE GLUCOSE (UA) NEGATIVE (NEGATIVE); URINE KETONE NEGATIVE (NEGATIVE); URINE LEUKOCYTE ESTERASE NEGATIVE Leu/uL (NEGATIVE); URINE PROTEIN NEGATIVE mg/dL (<30 mg/dL)
[2017-09-18 04:20] LABS: URINE APPEARANCE CLEAR (CLEAR); URINE COLOR YELLOW (YELLOW)
--- NOTE | 2017-09-18 05:02 | CT ---
EXAM: CT Abdomen and Pelvis With Intravenous Contrast EXAM DATE/TIME: 09/18/2017 2:16 AM CLINICAL HISTORY: 62 years old, female; Pain; Abdominal pain; Additional info: Rlq pain TECHNIQUE: Axial computed tomography images of the abdomen and pelvis with intravenous contrast. All CT scans at this facility use one or more dose reduction techniques, viz.: automated exposure control; ma/kV adjustment per patient size (including targeted exams where dose is matched to indication; i.e. head); or iterative reconstruction technique. Coronal and sagittal reformatted images were created and reviewed. CONTRAST: 96 mL of omni 350 administered intravenously. COMPARISON: CT - ABD PELVIS PO IV CONTRAST 2017-05-03 18:22 FINDINGS: The gallbladder is distended however no gallstones are identified. There is mild intrahepatic biliary duct dilation. The common bile duct is mildly dilated measuring 9 mm. The pancreatic duct is mildly dilated measuring 4 millimeters. Correlation with laboratory values is recommended. Questionable small 1.2 cm faint area of low attenuation in the pancreatic uncinate process coronal image 56 axial image 68. Followup is recommended to assess for stability and exclude developing lesion. The spleen is normal. No hydronephrosis or perinephric stranding. Sigmoid diverticula are noted. A normal appendix is identified coronal images 54 through 59. The uterus is again seen to be right-sided. No adnexal masses identified. IMPRESSION: Mild biliary duct dilation as discussed above.Recommend correlation with laboratory values. Questionable area of low attenuation pancreatic uncinate process for which followup is recommended.
== END 2017-09-18 05:40 | disposition home or self-care (01) ==
LOC: ED 01:58
DX: R10.9 Unspecified abdominal pain (principal); I10 Essential (primary) hypertension; Z87.891 Personal history of nicotine dependence
CPT/HCPCS: 74177; 80053; 81003; 83690; 85025; 85610; 85730; 96361; 96374; 96375; 99283; J2270; J2405; J7040; Q9967

== ENCOUNTER 2018-07-14 10:56 | Emergency (ER) | payer MEDICAID ==
[2018-07-14 10:56] VITALS: BMI 34.0
[2018-07-14 11:18] VITALS: RESP 18; TEMP 98.4
--- NOTE | 2018-07-14 11:51 | ED PDOC ---
Arrival/HPI - General Chief Complaint: Lower Extremity Problem/Injury Time Seen by Provider: 07/14/18 11:48 Historian: Patient - History of Present Illness Narrative History of Present Illness (Text): 07/14/18 11:55 A 63 year old female, whose past medical history includes Hypertension, TIA, menopause, arthritis, and x2, presents to the emergency department complaining of constant left-knee pain. 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 States swelling occurs to knee on and off. She notes feeling heat sensation to knee prior to swelling, however experiences no heat to the area at this time. Has taken Tylenol at 03:00 for the pain but has had no relief. Patient denies shortness of breath, chest pain, nausea, vomiting, abdominal pain, fall/trauma, or any other complaints at this time. Also, patient mentions he has chronic back pain and has had left foot surgery 1 year ago with no complications. PMD: Dr. Luiz Olson Neurologist: Dr. Perez Past Medical History - Provider Review Nursing Documentation Reviewed: Yes - Past History Past History: Non-Contributing - Infectious Disease Hx of Infectious Diseases: None - Tetanus Immunization Tetanus Immunization: Up to Date - Reproductive Menopause: Yes - Cardiac Hx Hypertension: Yes - Pulmonary Hx Asthma: Yes Hx Sleep Apnea: Yes - Neurological Hx Transient Ischemic Attacks (TIA): Yes - HEENT Hx HEENT Disorder: No - Renal Hx Renal Disorder: No - Endocrine/Metabolic Hx Endocrine Disorders: No - Hematological/Oncological Hx Blood Disorders: No - Integumentary Hx Dermatological Disorder: No - Musculoskeletal/Rheumatological Hx Arthritis: Yes - Gastrointestinal Hx Gastrointestinal Disorders: No - Genitourinary/Gynecological Hx Genitourinary Disorders: No - Psychiatric Hx Depression: No Hx Substance Use: No - Surgical History Hx Section: Yes (X2) Hx Orthopedic Surgery: Yes (L foot) Other/Comment: cyst removal from head - Anesthesia Hx Anesthesia: Yes Hx Anesthesia Reactions: No Hx Malignant Hyperthermia: No - Suicidal Assessment Feels Threatened In Home Enviroment: No Family/Social History - Physician Review Nursing Documentation Reviewed: Yes Family/Social History: No Known Family HX Smoking Status: Former Smoker Hx Alcohol Use: No Hx Substance Use: No Hx Substance Use Treatment: No Allergies/Home Meds Allergies/Adverse Reactions: Allergies No Known Allergies Allergy (Verified 12/26/17 12:10) Home Medications: Home Meds Medication Instructions Recorded Confirmed amLODIPine [Norvasc] 10 mg PO DAILY 02/28/17 07/14/18 Naproxen [Naprosyn] 500 mg PO BID 07/14/18 07/14/18 Review of Systems - Physician Review All systems were reviewed & negative as marked: Yes - Review of Systems Respiratory: absent: SOB Cardiovascular: absent: Chest Pain Gastrointestinal: absent: Abdominal Pain, Nausea, Vomiting Musculoskeletal: Other (left knee pain, worsens when bending knee and ambulating ) Neurological: Headache, Dizziness Physical Exam Vital Signs Reviewed: Yes Vital Signs Temp Pulse Resp BP Pulse Ox 07/14/18 13:15 78 18 145/80 98 07/14/18 11:05 98.4 F 82 18 149/84 99 Temperature: Afebrile Blood Pressure: Normal Pulse: Regular Respiratory Rate: Normal Appearance: Positive for: Well-Appearing, Non-Toxic, Comfortable Pain Distress: None Mental Status: Positive for: Alert and Oriented X 3 - Systems Exam Head: Present: Atraumatic, Normocephalic Pupils: Present: PERRL Extroacular Muscles: Present: EOMI Conjunctiva: Present: Normal Mouth: Present: Moist Mucous Membranes Neck: Present: Normal Range of Motion Respiratory/Chest: Present: Clear to Auscultation, Good Air Exchange. No: Respiratory Distress, Accessory Muscle Use Cardiovascular: Present: Regular Rate and Rhythm, Normal S1, S2. No: Murmurs Abdomen: No: Tenderness, Distention, Peritoneal Signs Back: Present: Normal Inspection Upper Extremity: Present: Normal Inspection. No: Cyanosis, Edema Lower Extremity: Present: Edema (slight edema to left knee), NORMAL PULSES ( good +2 pulses), Tenderness (tenderness to palpation to medial aspect of left knee), Other (left knee pain with elevation of left leg). No: Erythema Neurological: Present: GCS=15, CN II-XII Intact, Speech Normal Skin: Present: Warm, Dry, Normal Color. No: Rashes Psychiatric: Present: Alert, Oriented x 3, Normal Insight, Normal Concentration Medical Decision Making ED Course and Treatment: 07/14/18 12:01 Impression: 63 year old female with left knee pain Given patient had chronic pain issues with her leg and her back and denies any recent trauma, I am less inclined to believe the patient has any acute fractures and does not warrant any imaging at this time. She will be treated with analgesics and monitored for any changes. Differential Diagnosis Includes but is not limited to: Bursitis Tendonitis Plan: -- Lidoderm --Toradol --Tylenol -- Reassess and disposition Progress Notes: 07/14/18 13:16 Patient reassessed and still feels pain. Analgesics ordered. - Medication Orders Current Medication Orders: Discontinued Medications Ketorolac Tromethamine (Toradol) 60 mg IM STAT STA Stop: 07/14/18 13:23 Last Admin: 07/14/18 13:29 Dose: 60 mg MAR Pain Assessment Document 07/14/18 13:29 EQ (Rec: 07/14/18 13:29 EQ [id number]) Pain Reassessment Is this a pain reassessment? No Sleep Is patient sleeping during reassessment? No Presence of Pain Presence of Pain Yes IM Administration Charges Document 07/14/18 13:29 EQ (Rec: 07/14/18 13:29 EQ [id number]) Charges for Administration # of IM Administrations 1 Lidocaine (Lidoderm) 1 ea TD ONCE ONE Stop: 07/14/18 11:55 Last Admin: 07/14/18 12:27 Dose: 1 ea MAR Transdermal Patch Site Document 07/14/18 12:27 SF (Rec: 07/14/18 12:27 [id number]) Transdermal Patch Site Transdermal Patch Site Left Thigh Oxycodone/Acetaminophen (Percocet 5/325 Mg Tab) 1 tab PO STAT STA Stop: 07/14/18 13:19 Last Admin: 07/14/18 13:29 Dose: 1 tab MAR Pain Assessment Document 07/14/18 13:29 EQ (Rec: 07/14/18 13:29 EQ [id number]) Pain Reassessment Is this a pain reassessment? No Sleep Is patient sleeping during reassessment? No Presence of Pain Presence of Pain Yes - Scribe Statement The provider has reviewed the documentation as recorded by the Manohar Jaimes Provider Scribe Provider Scribe Attestation: All medical record entries made by the Scribe were at my direction and personally dictated by me. I have reviewed the chart and agree that the record accurately reflects my personal performance of the history, physical exam, medical decision making, and the department course for this patient. I have also personally directed, reviewed, and agree with the discharge instructions and disposition. Disposition/Present on Arrival - Present on Arrival Any Indicators Present on Arrival: No History of DVT/PE: No History of Uncontrolled Diabetes: No Urinary Catheter: No History of Decub. Ulcer: No History Surgical Site Infection Following: None - Disposition Have Diagnosis and Disposition been Completed?: Yes Diagnosis: Knee pain, left Disposition: HOME/ ROUTINE Disposition Time: 14:12 Patient Plan: Discharge Patient Problems: Current Active Problems Problem Status Onset Knee pain, left Acute Condition: IMPROVED Discharge Instructions (ExitCare): Chronic Knee Pain, Knee Pain (DC) Prescriptions: oxyCODONE/Acetaminophen [Percocet 5/325 mg Tab] 1 ea PO PRN PRN 3 Days #6 tab PRN Reason: Pain, Severe (8-10) Referrals: Rosanna Olson MD [Primary Care Provider] - Follow up with primary Forms: EPIS (Andorran)
[2018-07-14] MEDS ORDERED: Lidocaine 5% Patch TD ONE (11:54)
[2018-07-14] MEDS ORDERED: Oxycodone/Acetaminophen 5/325 mg Tab PO STA (13:18)
[2018-07-14 13:49] VITALS: O2SAT 98
[2018-07-14 14:18] VITALS: BP 146/81; PULSE 74
== END 2018-07-14 14:18 | disposition home or self-care (01) ==
LOC: ED 10:56
DX: M25.562 Pain in left knee (principal)
CPT/HCPCS: 96372; 99285; J1885

== ENCOUNTER 2018-11-27 14:03 | Observation (INO) | payer MEDICAID ==
[2018-11-27 14:03] VITALS: BMI 34.0
[2018-11-27] MEDS ORDERED: Sodium Chloride 0.9% 1,000 ML IV STA (14:39)
[2018-11-27] MEDS ORDERED: Alum-Mag Hydrox-Simethicone Susp (30 mL) PO STA ×2 (14:40→18:21)
--- NOTE | 2018-11-27 14:41 | ED PDOC ---
Arrival/HPI - General Chief Complaint: Abdominal Pain Time Seen by Provider: 11/27/18 14:09 Historian: Patient - History of Present Illness Narrative History of Present Illness (Text): 11/27/18 14:35 63 year old female with a past medical history of hypertension, TIA, menopause, arthritis, x2, and migraines presents to the Emergency department complaining of abdominal pain, nausea, and vomiting since three days. Patient informs onset of symptoms initially as chest burning sensation which transformed into abdominal pain since the past three days. Patient denies any fevers, chills, headache, dizziness, chest pain, shortness of breath, dyspnea on exertion, cough, diarrhea, back pain, neck pain, history of hernias, urinary symptoms, or any other complaints. Patient denies any recent alcoholic consumption. Patient states her last normal bowel movement was a couple of hours prior to arrival. Patient denies any history of abdominal surgeries. PMD: Time/Duration: < week Symptom Onset: Gradual Symptom Course: Unchanged Activities at Onset: Light Context: Home Past Medical History - Provider Review Nursing Documentation Reviewed: Yes - Past History Past History: Non-Contributing - Infectious Disease Hx of Infectious Diseases: None - Tetanus Immunization Tetanus Immunization: Up to Date - Cardiac Hx Cardiac Disorders: Yes Hx Hypertension: Yes - Pulmonary Hx Respiratory Disorders: Yes Hx Asthma: Yes Hx Sleep Apnea: Yes - Neurological Hx Neurological Disorder: Yes Hx Transient Ischemic Attacks (TIA): Yes - HEENT Hx HEENT Disorder: No - Renal Hx Renal Disorder: No - Endocrine/Metabolic Hx Endocrine Disorders: No - Hematological/Oncological Hx Blood Disorders: No - Integumentary Hx Dermatological Disorder: No - Musculoskeletal/Rheumatological Hx Musculoskeletal Disorders: Yes Hx Arthritis: Yes - Gastrointestinal Hx Gastrointestinal Disorders: No - Genitourinary/Gynecological Hx Genitourinary Disorders: No - Psychiatric Hx Depression: No Hx Substance Use: No - Surgical History Hx Section: Yes (X2) Hx Orthopedic Surgery: Yes (L foot) Other/Comment: cyst removal from head - Anesthesia Hx Anesthesia: Yes Hx Anesthesia Reactions: No Hx Malignant Hyperthermia: No - Suicidal Assessment Feels Threatened In Home Enviroment: No Family/Social History - Physician Review Nursing Documentation Reviewed: Yes Family/Social History: Unknown Family HX Smoking Status: Former Smoker Hx Alcohol Use: No Hx Substance Use: No Hx Substance Use Treatment: No Allergies/Home Meds Allergies/Adverse Reactions: Allergies No Known Allergies Allergy (Verified 11/27/18 14:10) Home Medications: Home Meds Medication Instructions Recorded Confirmed amLODIPine [Norvasc] 10 mg PO DAILY 02/28/17 11/27/18 Gabapentin [Neurontin] 400 mg PO DAILY 11/27/18 11/27/18 Review of Systems - Physician Review All systems were reviewed & negative as marked: Yes - Review of Systems Constitutional: absent: Fevers Respiratory: absent: SOB, Cough Cardiovascular: absent: Chest Pain Gastrointestinal: Abdominal Pain, Nausea, Vomiting. absent: Diarrhea Musculoskeletal: absent: Back Pain, Neck Pain Skin: absent: Rash Neurological: absent: Headache, Dizziness Physical Exam Vital Signs Reviewed: Yes Vital Signs Temp Pulse Resp BP Pulse Ox 11/27/18 14:38 98.6 F 11/27/18 14:29 93 H 17 133/72 98 Blood Pressure: Normal Pulse: Regular Respiratory Rate: Normal Appearance: Positive for: Well-Appearing, Non-Toxic, Comfortable Pain Distress: None Mental Status: Positive for: Alert and Oriented X 3 - Systems Exam Head: Present: Atraumatic, Normocephalic Pupils: Present: PERRL Extroacular Muscles: Present: EOMI Conjunctiva: Present: Normal Neck: Present: Normal Range of Motion Respiratory/Chest: Present: Clear to Auscultation, Good Air Exchange, Decreased Breath Sounds (breath sounds limited due to patient's body built). No: Respiratory Distress, Accessory Muscle Use Cardiovascular: Present: Regular Rate and Rhythm, Normal S1, S2. No: Murmurs Abdomen: Present: Tenderness (tenderness to palpation in RUQ and RLQ), Other (no rigidity ). No: Distention, Peritoneal Signs, Guarding Back: Present: Normal Inspection Upper Extremity: Present: Normal Inspection. No: Cyanosis, Edema Lower Extremity: Present: Normal Inspection. No: Edema Neurological: Present: GCS=15, CN II-XII Intact, Speech Normal Skin: Present: Warm, Dry, Normal Color. No: Rashes Psychiatric: Present: Alert, Oriented x 3, Normal Insight, Normal Concentration Medical Decision Making ED Course and Treatment: 11/27/18 14:35 Impression: 63 year old female presents to the Emergency department with abdominal pain, nausea, and vomiting. Differential Diagnosis included but are not limited to: -- Gastroenteritis -- Pancreatitis -- SBO -- Biliary Colic -- Appendicitis Plan: -- Labs -- VBG -- CT Abdomen & Pelvis -- EKG -- Chest X-ray -- Elixir -- Maalox -- IV Fluids -- Toradol -- Urine Culture -- Urinalysis -- Reassess and disposition Prior Visits: Notes and results from previous visits were reviewed. Progress Notes: 11/27/18 19:05 Labs reviewed with lipase WNL as well as troponin. CT a/p reveals acute pancreatitis. Patient still complaining of pain despite pain medications. Patient is agreeable to staying. Discussed case with medical asst who states patient most likely will be admitted to hospitalist service. Call placed to Dr. Light(house staff). - Lab Interpretations Lab Results: 11/27/18 15:10 11/27/18 15:10 Lab Results 11/27/18 15:10: pO2 39, VBG pH 7.36, VBG pCO2 49.0, VBG HCO3 27.7, VBG Total CO2 29.2 H, VBG O2 Sat (Calc) 77.9 H, VBG Base Excess 1.5, VBG Potassium 3.9, Sodium 137.0, Chloride 101.0, Glucose 120 H, Lactate 1.6, FiO2 21.0, Venous Blood Potassium 3.9 11/27/18 15:10: Sodium 138, Chloride 100, Potassium 3.7, Carbon Dioxide 27, Anion Gap 14, BUN 16, Creatinine 0.5 L, Est GFR ( Amer) > 60, Est GFR (Non-Af Amer) > 60, Random Glucose 120 H, Calcium 9.6, Magnesium 1.9, Total Bilirubin 0.7, AST 22, ALT 24, Alkaline Phosphatase 87, Troponin I < 0.01, Total Protein 7.6, Albumin 4.4, Globulin 3.2, Albumin/Globulin Ratio 1.4, Lipase 56 11/27/18 15:10: Urine Color Yellow, Urine Appearance Clear, Urine pH 6.0, Ur Specific [place] 1.025, Urine Protein Negative, Urine Glucose (UA) Negative, Urine Ketones Negative, Urine Blood Negative, Urine Nitrate Negative, Urine Bilirubin Negative, Urine Urobilinogen 0.2, Ur Leukocyte Esterase Negative 11/27/18 15:10: PT 11.5, INR 1.01, APTT 26.4 11/27/18 15:10: WBC 8.3, RBC 5.12, Hgb 16.0, Hct 47.5, MCV 92.8, MCH 31.3, MCHC 33.7, RDW 12.4, Plt Count 305, MPV 11.0, Gran % 60.1, Lymph % (Auto) 30.0, [place] % (Auto) 9.1 H, Eos % (Auto) 0.7 L, Baso % (Auto) 0.1, Gran # 4.99, Lymph # (Auto) 2.5, [place] # (Auto) 0.8 H, Eos # (Auto) 0.1, Baso # (Auto) 0.01 - RAD Interpretation Narrative RAD Interpretations (Text): 11/27/18 15:35 Chest X-ray reviewed by radiologist, shows: FINDINGS: LUNGS: No active pulmonary disease. PLEURA: No significant pleural effusion identified, no pneumothorax apparent. CARDIOVASCULAR: No aortic atherosclerotic calcification present. Normal cardiac size. No pulmonary vascular congestion. OSSEOUS STRUCTURES: No significant abnormalities. VISUALIZED UPPER ABDOMEN: Normal. OTHER FINDINGS: None. IMPRESSION: No active disease. Radiology Orders: 11/27/18 14:18 CHEST PORTABLE [RAD] Stat - Scribe Statement The provider has reviewed the documentation as recorded by the Scribe Shantelle gonzalez with [place] All medical record entries made by the Scribe were at my direction and personally dictated by me. I have reviewed the chart and agree that the record accurately reflects my personal performance of the history, physical exam, medical decision making, and the department course for this patient. I have also personally directed, reviewed, and agree with the discharge instructions and disposition. Disposition/Present on Arrival - Present on Arrival Any Indicators Present on Arrival: No History of DVT/PE: No History of Uncontrolled Diabetes: No Urinary Catheter: No History of Decub. Ulcer: No History Surgical Site Infection Following: None - Disposition Have Diagnosis and Disposition been Completed?: Yes Diagnosis: Pancreatitis Disposition: HOSPITALIZED Disposition Time: 19:04 Patient Plan: Observation Patient Problems: Current Active Problems Problem Status Onset Pancreatitis Acute Condition: FAIR Referrals: Rosanna Olson MD [Primary Care Provider] - Follow up with primary Forms: [employer] ([place])
[2018-11-27] MEDS ORDERED: Atrop/Hyosc/Scopal/PB Elixir (120 ml) PO STA ×2 (14:43→18:21)
--- NOTE | 2018-11-27 15:09 | RAD ---
Date of service: 11/27/2018 HISTORY: abdominal pain COMPARISON: 02/28/2017 FINDINGS: LUNGS: No active pulmonary disease. PLEURA: No significant pleural effusion identified, no pneumothorax apparent. CARDIOVASCULAR: No aortic atherosclerotic calcification present. Normal cardiac size. No pulmonary vascular congestion. OSSEOUS STRUCTURES: No significant abnormalities. VISUALIZED UPPER ABDOMEN: Normal. OTHER FINDINGS: None. IMPRESSION: No active disease.
[2018-11-27 15:21] LABS: BASO # 0.01 K/mm3 (0.0-2.0); BASO % 0.1 % (0.0-3.0); EOS # 0.1 (0.0-0.7); EOS % 0.7 % (1.5-5.0); GRAN # 4.99 (1.4-6.5); GRAN % 60.1 % (50.0-68.0); LYMPH # 2.5 (1.2-3.4); MEAN CELL VOLUME 92.8 fl (80.0-105.0); MEAN CORPUSCULAR HEMOGLOBIN 31.3 pg (25.0-35.0); MEAN CORPUSCULAR HGB CONC 33.7 g/dl (31.0-37.0); MONO # 0.8 (0.1-0.6); MONO % 9.1 % (1.0-6.0); RBC 5.12 10^6/uL (3.5-6.1); RED CELL DISTRIBUTION WIDTH 12.4 % (11.5-14.5); URINE BILIRUBIN NEGATIVE (NEGATIVE); URINE BLOOD NEGATIVE (NEGATIVE); URINE GLUCOSE (UA) NEGATIVE (NEGATIVE); URINE LEUKOCYTE ESTERASE NEGATIVE Leu/uL (NEGATIVE); URINE PROTEIN NEGATIVE mg/dL (<30 mg/dL); URINE UROBILINOGEN 0.2 E.U./dL (<1 E.U./dL); VENOUS BLOOD GAS BASE EXCESS 1.5 mmol/L (0.0-2.0); VENOUS BLOOD GAS PO2 39 mm/Hg (30-55); VENOUS BLOOD PH 7.36 (7.32-7.43); WHITE BLOOD COUNT 8.3 10^3/uL (4.5-11.0)
[2018-11-27 15:25] LABS: URINE APPEARANCE CLEAR (CLEAR); URINE COLOR YELLOW (YELLOW)
[2018-11-27 15:30] LABS: INR 1.01; PARTIAL THROMBOPLASTIN TIME 26.4 Seconds (25.1-36.5); PROTHROMBIN TIME 11.5 SECONDS (9.4-12.5)
[2018-11-27 15:37] LABS: ALB/GLOB RATIO 1.4 (1.1-1.8); ALBUMIN 4.4 g/dL (3.0-4.8); ALT/SGPT 24 U/L (7-56); AST/SGOT 22 U/L (14-36); BLOOD UREA NITROGEN 16 mg/dL (7-21); CALCIUM 9.6 mg/dL (8.4-10.5); GFR NON-AFRICAN AMERICAN > 60; LIPASE 56 U/L (23-300)
[2018-11-27 15:48] LABS: TROPONIN I < 0.01 ng/mL
[2018-11-27] MEDS ORDERED: Iohexol 350 MG/100 ML VIAL ONE (17:07)
--- NOTE | 2018-11-27 18:49 | CT ---
Date of service: 11/27/2018 PROCEDURE: CT Abdomen and Pelvis without intravenous contrast HISTORY: abdominal pain within RUQ/RLQ COMPARISON: 09/18/2017 TECHNIQUE: Without contrast. Please note that the examination was to be performed with intravenous contrast but there is infiltration of the intravenous contrast in the extremity, reportedly.. Contrast dose: 0 Radiation dose: Total exam DLP = 966.68 mGy-cm. This CT exam was performed using one or more of the following dose reduction techniques: Automated exposure control, adjustment of the mA and/or kV according to patient size, and/or use of iterative reconstruction technique. FINDINGS: LOWER THORAX: Unremarkable. LIVER: Normal size, contour and attenuation. No mass. No biliary dilatation. GALLBLADDER AND BILE DUCTS: Unremarkable. PANCREAS: No pancreatic mass. There is mild infiltration of the retroperitoneal fat adjacent to the pancreatic head suggesting possible mild acute pancreatitis. Please correlate with clinical and laboratory evaluation. No ductal dilatation. SPLEEN: Unremarkable. ADRENALS: Unremarkable. No mass. KIDNEYS AND URETERS: Unremarkable. No hydronephrosis. No solid mass. VASCULATURE: Unremarkable. No aortic aneurysm. Mild atherosclerotic calcification of the abdominal aorta BOWEL: Sigmoid diverticulosis without evidence of diverticulitis no bowel obstruction. No other abnormal bowel loops. APPENDIX: Unremarkable. Normal appendix. PERITONEUM: Unremarkable. No free fluid. No free air. LYMPH NODES: Unremarkable. No enlarged lymph nodes. BLADDER: Unremarkable. REPRODUCTIVE: Decompressed postmenopausal uterus BONES: No acute fracture. OTHER FINDINGS: None. IMPRESSION: Mild infiltration of the retroperitoneal fat adjacent to the pancreatic head. This may reflect early or mild acute pancreatitis. No pancreatic mass or ductal dilatation. No additional significant/acute abnormality.
[2018-11-27] MEDS: Sodium Chloride 0.9% 1,000 ML IV SCH (20:07)
--- NOTE | 2018-11-27 21:41 | CP.PCM.HP ---
<Mynor Calderon - Last Filed: 11/27/18 21:22> History of Present Illness - History of Present Illness History of Present Illness: Mynor Figueroa DO PGY1 - Internal Medicine Lvn Lpn - Hospital H&P CC: Abd pain, N/V 63F w/ PMH of TIA, L sided neurologic disease?, HTN, Neuropathy, presented to [facility] ED on 11/27 w/ c/o Epigastric abd pain, and nausea vomiting x3 days. She reported pains began on located in epigastric region and migrated diffusely throughout her abdomen. Today the pain is located in her epigastric region and radiates into her RUQ; She also has intermittent pain located in LLQ/ L periumbical region. Patient reports the pain is worse when she is laying down however denies any worsening or improvement w/ food. She reports initially she could not tolerate diet however at this time she has an okay appetite and is able to tolerate liquids w/o problem. She does report an epigastric burning sensation which radiates into her chest which is chronic for her; and reports a subsequent abdominal pressure associated. She denies any urinary discomfort, burning, or bleeding. Remainder 12 system ROS is otherwise negative. PMD: Dr. Nayeli Olson Home Rx: Norvasc 10 Daily, Gabapentin 300 Daily - As provided by patient Pharmacy: [facility] PMH: TIA>15 years ago, Unknown Left sided neurologic disease, Sleep Apnea (not compliant w/ cpap), HTN, Neuropathy PSH: L foot surgery Social: Denies EtOH, Tobacco, Illicit; She is a retired machine repairer maintenance Patient lives at home w/ her daughter and is independent in her ADLs Present on Admission - Present on Admission Any Indicators Present on Admission: No Review of Systems - Review of Systems All systems: reviewed and no additional remarkable complaints except Review of Systems: as per HPI Past Patient History - Infectious Disease Hx of Infectious Diseases: None - Tetanus Immunizations Tetanus Immunization: Up to Date - Past Social History Smoking Status: Former Smoker - CARDIAC Hx Cardiac Disorders: Yes Hx Hypertension: Yes - PULMONARY Hx Respiratory Disorders: Yes Hx Asthma: Yes Hx Sleep Apnea: Yes - NEUROLOGICAL Hx Neurological Disorder: Yes Hx Transient Ischemic Attacks (TIA): Yes - HEENT Hx HEENT Problems: No - RENAL Hx Chronic Kidney Disease: No - ENDOCRINE/METABOLIC Hx Endocrine Disorders: No - HEMATOLOGICAL/ONCOLOGICAL Hx Blood Disorders: No - INTEGUMENTARY Hx Dermatological Problems: No - MUSCULOSKELETAL/RHEUMATOLOGICAL Hx Musculoskeletal Disorders: Yes Hx Arthritis: Yes - GASTROINTESTINAL Hx Gastrointestinal Disorders: No - GENITOURINARY/GYNECOLOGICAL Hx Genitourinary Disorders: No - PSYCHIATRIC Hx Depression: No Hx Substance Use: No - SURGICAL HISTORY Hx Section: Yes (X2) Hx Orthopedic Surgery: Yes (L foot) Other/Comment: cyst removal from head - ANESTHESIA Hx Anesthesia: Yes Hx Anesthesia Reactions: No Hx Malignant Hyperthermia: No Meds Allergies/Adverse Reactions: Allergies Allergy/AdvReac Type Severity Reaction Status Date / Time No Known Allergies Allergy Verified 11/27/18 14:10 Physical Exam - Constitutional Appears: Well, Non-toxic, No Acute Distress - Head Exam Head Exam: ATRAUMATIC, NORMOCEPHALIC - Eye Exam Eye Exam: EOMI, Normal appearance, PERRL - ENT Exam ENT Exam: Mucous Membranes Moist, Normal Exam - Respiratory Exam Respiratory Exam: Clear to Auscultation Bilateral, NORMAL BREATHING PATTERN - Cardiovascular Exam Cardiovascular Exam: REGULAR RHYTHM, +S1, +S2. absent: Systolic Murmur - GI/Abdominal Exam GI & Abdominal Exam: Normal Bowel Sounds, Soft, Tenderness (Patient has tendneress greatest in the Epigastric region, and LLQ; No rebound tenderness appreciated) Additional comments: Abdomen is obese No cullens/ or gaston diaz's sign - Extremities Exam Extremities exam: Positive for: normal capillary refill, normal inspection, pedal pulses present - Back Exam Back exam: CVA tenderness (L), CVA tenderness (R) - Neurological Exam Neurological exam: Alert, CN II-XII Intact, Oriented x3 - Psychiatric Exam Psychiatric exam: Normal Affect, Normal Mood - Skin Skin Exam: Dry, Intact, Normal Color, Warm Results - Vital Signs Recent Vital Signs: Last Vital Signs Temp 98.6 F 11/27/18 14:38 Pulse 79 11/27/18 21:20 Resp 18 11/27/18 21:20 BP 145/72 11/27/18 21:20 Pulse Ox 98 11/27/18 21:20 - Labs Result Diagrams: 11/27/18 15:10 11/27/18 15:10 Labs: Laboratory Results - last 24 hr 11/27/18 11/27/18 11/27/18 15:00 15:10 15:10 WBC 8.3 RBC 5.12 Hgb 16.0 Hct 47.5 MCV 92.8 MCH 31.3 MCHC 33.7 RDW 12.4 Plt Count 305 MPV 11.0 Gran % 60.1 Lymph % (Auto) 30.0 [place] % (Auto) 9.1 H Eos % (Auto) 0.7 L Baso % (Auto) 0.1 Gran # 4.99 Lymph # (Auto) 2.5 [place] # (Auto) 0.8 H Eos # (Auto) 0.1 Baso # (Auto) 0.01 PT 11.5 INR 1.01 APTT 26.4 pO2 VBG pH VBG pCO2 VBG HCO3 VBG Total CO2 VBG O2 Sat (Calc) VBG Base Excess VBG Potassium Sodium Chloride Glucose Lactate FiO2 Potassium Carbon Dioxide Anion Gap BUN Creatinine Est GFR ( Amer) Est GFR (Non-Af Amer) Random Glucose Calcium Phosphorus 3.1 Magnesium Total Bilirubin AST ALT Alkaline Phosphatase Troponin I Total Protein Albumin Globulin Albumin/Globulin Ratio Lipase Venous Blood Potassium Urine Color Urine Appearance Urine pH Ur Specific [place] Urine Protein Urine Glucose (UA) Urine Ketones Urine Blood Urine Nitrate Urine Bilirubin Urine Urobilinogen Ur Leukocyte Esterase 11/27/18 11/27/18 11/27/18 15:10 15:10 15:10 WBC RBC Hgb Hct MCV MCH MCHC RDW Plt Count MPV Gran % Lymph % (Auto) [place] % (Auto) Eos % (Auto) Baso % (Auto) Gran # Lymph # (Auto) [place] # (Auto) Eos # (Auto) Baso # (Auto) PT INR APTT pO2 39 VBG pH 7.36 VBG pCO2 49.0 VBG HCO3 27.7 VBG Total CO2 29.2 H VBG O2 Sat (Calc) 77.9 H VBG Base Excess 1.5 VBG Potassium 3.9 Sodium 138 137.0 Chloride 100 101.0 Glucose 120 H Lactate 1.6 FiO2 21.0 Potassium 3.7 Carbon Dioxide 27 Anion Gap 14 BUN 16 Creatinine 0.5 L Est GFR ( Amer) > 60 Est GFR (Non-Af Amer) > 60 Random Glucose 120 H Calcium 9.6 Phosphorus Magnesium 1.9 Total Bilirubin 0.7 AST 22 ALT 24 Alkaline Phosphatase 87 Troponin I < 0.01 Total Protein 7.6 Albumin 4.4 Globulin 3.2 Albumin/Globulin Ratio 1.4 Lipase 56 Venous Blood Potassium 3.9 Urine Color Yellow Urine Appearance Clear Urine pH 6.0 Ur Specific [place] 1.025 Urine Protein Negative Urine Glucose (UA) Negative Urine Ketones Negative Urine Blood Negative Urine Nitrate Negative Urine Bilirubin Negative Urine Urobilinogen 0.2 Ur Leukocyte Esterase Negative Assessment & Plan - Assessment and Plan (Free Text) Assessment: 63F w/ PMH of TIA, L sided neurologic disease?, HTN, Neuropathy, presented to [facility] ED on 11/27 w/ c/o Epigastric abd pain, and nausea vomiting x3 days. Patient was admitted for workup and management of abdominal pain N/V and ACS r/o. PLAN: Epigastric Abdominal Pain - Pancreatitis vs. Esophagitis Most likely pancreatitis given CTAP findings 11/27 - CTAP - Mild infiltration of the retroperitoneal fat adjacent to the pancreatic head. This may reflect early or mild acute pancreatitis. No pancreatic mass or ductal dilatation. No additional significant/acute abnormality. Patient is reporting tolerance to CLD at this time; [place]'s Score -1 w/ LDH assumed to be wnl; Follow up LDH value and recalculate Will start Pt on full liquid; monitor tolerance to diet ADAT Start IVF 100cc/hr Start Zofran 4mg PRN nausea Protonix 40mg QD ACS R/O Pt. C/o pressure like sensation in epgastric region Frist troponin negative EKG NSR 87/min w/ a QTc 445 Follow up AM EKG Follow up repeat troponin Follow up Lipid Pane Follow up HbA1c Dr. Julian Cardiology Consulted, Appreciate reccs Hx HTN C/w Home norvasc 10 QD Hx Neuropathy C/w Neurontin 400 QD PPX DVT - SCD GI - Protonix DISPO: Upon discharge patient is to follow up with PMD, Dr. Nayeli Olson Patient was seen examined and discussed w/ attending physician Dr. Nadege Calderon DO PGY1 Internal Medicine Lvn Lpn - Date & Time Date: 11/27/18 Time: 22:07 <Che Light - Last Filed: 11/28/18 05:42> Results - Vital Signs Recent Vital Signs: Last Vital Signs Temp 97.8 F 11/28/18 00:00 Pulse 69 11/28/18 02:00 Resp 20 11/28/18 00:00 BP 146/78 11/28/18 00:00 Pulse Ox 96 11/28/18 00:00 - Labs Result Diagrams: 11/27/18 15:10 11/27/18 15:10 Labs: Laboratory Results - last 24 hr 11/27/18 11/27/18 11/27/18 15:00 15:10 15:10 WBC 8.3 RBC 5.12 Hgb 16.0 Hct 47.5 MCV 92.8 MCH 31.3 MCHC 33.7 RDW 12.4 Plt Count 305 MPV 11.0 Gran % 60.1 Lymph % (Auto) 30.0 [place] % (Auto) 9.1 H Eos % (Auto) 0.7 L Baso % (Auto) 0.1 Gran # 4.99 Lymph # (Auto) 2.5 [place] # (Auto) 0.8 H Eos # (Auto) 0.1 Baso # (Auto) 0.01 PT 11.5 INR 1.01 APTT 26.4 pO2 VBG pH VBG pCO2 VBG HCO3 VBG Total CO2 VBG O2 Sat (Calc) VBG Base Excess VBG Potassium Sodium Chloride Glucose Lactate FiO2 Potassium Carbon Dioxide Anion Gap BUN Creatinine Est GFR ( Amer) Est GFR (Non-Af Amer) Random Glucose Calcium Phosphorus 3.1 Magnesium Total Bilirubin AST ALT Alkaline Phosphatase Lactate Dehydrogenase Troponin I Total Protein Albumin Globulin Albumin/Globulin Ratio Lipase Venous Blood Potassium Urine Color Urine Appearance Urine pH Ur Specific [place] Urine Protein Urine Glucose (UA) Urine Ketones Urine Blood Urine Nitrate Urine Bilirubin Urine Urobilinogen Ur Leukocyte Esterase 11/27/18 11/27/18 11/27/18 15:10 15:10 15:10 WBC RBC Hgb Hct MCV MCH MCHC RDW Plt Count MPV Gran % Lymph % (Auto) [place] % (Auto) Eos % (Auto) Baso % (Auto) Gran # Lymph # (Auto) [place] # (Auto) Eos # (Auto) Baso # (Auto) PT INR APTT pO2 39 VBG pH 7.36 VBG pCO2 49.0 VBG HCO3 27.7 VBG Total CO2 29.2 H VBG O2 Sat (Calc) 77.9 H VBG Base Excess 1.5 VBG Potassium 3.9 Sodium 138 137.0 Chloride 100 101.0 Glucose 120 H Lactate 1.6 FiO2 21.0 Potassium 3.7 Carbon Dioxide 27 Anion Gap 14 BUN 16 Creatinine 0.5 L Est GFR ( Amer) > 60 Est GFR (Non-Af Amer) > 60 Random Glucose 120 H Calcium 9.6 Phosphorus Magnesium 1.9 Total Bilirubin 0.7 AST 22 ALT 24 Alkaline Phosphatase 87 Lactate Dehydrogenase Troponin I < 0.01 Total Protein 7.6 Albumin 4.4 Globulin 3.2 Albumin/Globulin Ratio 1.4 Lipase 56 Venous Blood Potassium 3.9 Urine Color Yellow Urine Appearance Clear Urine pH 6.0 Ur Specific [place] 1.025 Urine Protein Negative Urine Glucose (UA) Negative Urine Ketones Negative Urine Blood Negative Urine Nitrate Negative Urine Bilirubin Negative Urine Urobilinogen 0.2 Ur Leukocyte Esterase Negative 11/27/18 11/27/18 21:28 22:11 WBC RBC Hgb Hct MCV MCH MCHC RDW Plt Count MPV Gran % Lymph % (Auto) [place] % (Auto) Eos % (Auto) Baso % (Auto) Gran # Lymph # (Auto) [place] # (Auto) Eos # (Auto) Baso # (Auto) PT INR APTT pO2 VBG pH VBG pCO2 VBG HCO3 VBG Total CO2 VBG O2 Sat (Calc) VBG Base Excess VBG Potassium Sodium Chloride Glucose Lactate FiO2 Potassium Carbon Dioxide Anion Gap BUN Creatinine Est GFR ( Amer) Est GFR (Non-Af Amer) Random Glucose Calcium Phosphorus Magnesium Total Bilirubin AST ALT Alkaline Phosphatase Lactate Dehydrogenase 371 Troponin I < 0.01 Total Protein Albumin Globulin Albumin/Globulin Ratio Lipase Venous Blood Potassium Urine Color Urine Appearance Urine pH Ur Specific [place] Urine Protein Urine Glucose (UA) Urine Ketones Urine Blood Urine Nitrate Urine Bilirubin Urine Urobilinogen Ur Leukocyte Esterase Attending/Attestation - Attestation I have personally seen and examined this patient.: Yes I have fully participated in the care of the patient.: Yes I have reviewed all pertinent clinical information: Yes Notes (Text): 11/28/18 05:37 Patient was seen when she was in the ER room # 10. Medical record was reviewed. Agree with history, physical examination, assessment and plan with some inclusion, some exclusion as following: CC: Abd pain: Nausea :-->3 D Vomiting: States that she had pain in chest since [place] denisha,felt like elepatriciohant was sitting on her chest. Had nause, vomiting, chills, little sweating and little sob. Now pain is in RLQ going to LLQ. CT Abdomen/P.-Mild infiltration of fat adjacent to pancreatic head. ? Early or mild acute pancreattits. CXR-NAD EKG-NS st t changes. PMH: HTN ASTHMA JACKI TIA. Arthritis. Obesity. GERD. Migraine. History of epilepsy as child took seizure meds till age 8-9 year. Bronchitis. 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 Wears reading glasses. Has history of HLD, takes Lipitor 10 mg when she remembers. C-Sectionx2. Former smoker. Left foot surgery. ER MEDS: elixir 5 ml x 2. Maalox 30 cc x 2. NACL 1L x 1. Toradol 30 mg IV x 1. HOME MEDS: Neurontin . NOrvasc. Assessment: Chest pain. R/O Pancreatitis. Plan: Keep in remote telemetry floor. Cardiology consult. serial EKG,trops. Diet as tolerated. GI/DVT prophylaxis. F/u Amylase,Lipase. May need GI consult. Continue home meds.
[2018-11-28] MEDS ORDERED: Pantoprazole 40 mg EC Tab PO SCH (06:00)
[2018-11-28 06:39] LABS: HEMOGLOBIN 14.7 g/dL (12.0-16.0); MEAN CELL VOLUME 93.1 fl (80.0-105.0); MEAN CORPUSCULAR HEMOGLOBIN 30.9 pg (25.0-35.0); MEAN CORPUSCULAR HGB CONC 33.2 g/dl (31.0-37.0); MEAN PLATELET VOLUME 11.2 fl (7.0-11.0); RBC 4.76 10^6/uL (3.5-6.1); RED CELL DISTRIBUTION WIDTH 12.3 % (11.5-14.5); WHITE BLOOD COUNT 6.6 10^3/uL (4.5-11.0)
[2018-11-28 06:52] LABS: TROPONIN I < 0.01 ng/mL
[2018-11-28 06:53] LABS: LDL CHOLESTEROL 151 mg/dL (0-129)
[2018-11-28 07:01] LABS: ALB/GLOB RATIO 1.4 (1.1-1.8); ALBUMIN 3.8 g/dL (3.0-4.8); ALT/SGPT 22 U/L (7-56); AMYLASE 56 U/L (35-125); AST/SGOT 20 U/L (14-36); BLOOD UREA NITROGEN 13 mg/dL (7-21); CALCIUM 8.8 mg/dL (8.4-10.5); GFR NON-AFRICAN AMERICAN > 60; HDL CHOLESTEROL 51 mg/dL (29-60)
[2018-11-28] MEDS: Enoxaparin 40 mg Syringe SC SCH (09:21)
[2018-11-28] MEDS: Sodium Chloride 0.9% 1,000 ML IV SCH (09:23)
--- NOTE | 2018-11-28 09:56 | CP.PCM.CON ---
History of Present Illness - History of Present Illness History of Present Illness: Awake, alert, denies chest pain, complaining of epigastric pain Reason for consultation: Cardiac evaluation of epigastric pain, rule out acute coronary syndrome Brief history of present illness:A 63 year old female who came in to the ER due to complaints of epigastric pain with nausea and vomiting. History of hypertension, neuropathy, TIA,asthma,arthritis,GERD,migraine, epilepsy during childhood,bronchitis, hyperlipidemia, former smoker, left foot surgery.Denies chest pain, denies shortness of breath. Seen and examined by me and Dr. Ojeda Review of Systems - Review of Systems All systems: reviewed and no additional remarkable complaints except Review of Systems: as per HPI Past Patient History - Infectious Disease Hx of Infectious Diseases: None - Tetanus Immunizations Tetanus Immunization: Up to Date - Past Social History Smoking Status: Never Smoked - CARDIAC Hx Cardiac Disorders: Yes Hx Hypertension: Yes - PULMONARY Hx Respiratory Disorders: Yes Hx Asthma: Yes Hx Sleep Apnea: Yes - NEUROLOGICAL Hx Neurological Disorder: Yes Hx Transient Ischemic Attacks (TIA): Yes - HEENT Hx HEENT Problems: No - RENAL Hx Chronic Kidney Disease: No - ENDOCRINE/METABOLIC Hx Endocrine Disorders: No - HEMATOLOGICAL/ONCOLOGICAL Hx Blood Disorders: No - INTEGUMENTARY Hx Dermatological Problems: No - MUSCULOSKELETAL/RHEUMATOLOGICAL Hx Falls: Yes - GASTROINTESTINAL Hx Gastrointestinal Disorders: No - GENITOURINARY/GYNECOLOGICAL Hx Genitourinary Disorders: No - PSYCHIATRIC Hx Depression: No - SURGICAL HISTORY Hx Orthopedic Surgery: Yes (L foot) Other/Comment: cyst removal from head - ANESTHESIA Hx Anesthesia: Yes Hx Anesthesia Reactions: No Hx Malignant Hyperthermia: No Meds Allergies/Adverse Reactions: Allergies Allergy/AdvReac Type Severity Reaction Status Date / Time No Known Allergies Allergy Verified 11/27/18 14:10 - Medications Medications: Current Medications Amlodipine Besylate (Norvasc) 10 mg PO DAILY [facility] Last Admin: 11/28/18 09:21 Dose: 10 mg Enoxaparin Sodium (Lovenox) 40 mg SC DAILY [facility]; Protocol Last Admin: 11/28/18 09:21 Dose: 40 mg Gabapentin (Neurontin) 400 mg PO DAILY [facility]; Protocol Last Admin: 11/28/18 09:21 Dose: 400 mg Sodium Chloride (Sodium Chloride 0.9%) 1,000 mls @ 100 mls/hr IV .Q10H [facility] Last Admin: 11/28/18 09:23 Dose: 100 mls/hr Ondansetron HCl (Zofran Inj) 4 mg IVP Q6H PRN PRN Reason: Nausea/Vomiting Last Admin: 11/28/18 02:47 Dose: 4 mg Pantoprazole Sodium (Protonix Ec Tab) 40 mg PO 0600 [facility] Last Admin: 11/28/18 05:01 Dose: 40 mg Physical Exam - Constitutional Appears: Non-toxic, No Acute Distress - Head Exam Head Exam: NORMAL INSPECTION, NORMOCEPHALIC - Eye Exam Eye Exam: Normal appearance Pupil Exam: NORMAL ACCOMODATION - ENT Exam ENT Exam: Mucous Membranes Moist, Normal Exam - Respiratory Exam Respiratory Exam: Decreased Breath Sounds, Clear to Auscultation Bilateral, NORMAL BREATHING PATTERN - Cardiovascular Exam Cardiovascular Exam: +S1, +S2 - GI/Abdominal Exam GI & Abdominal Exam: Normal Bowel Sounds, Soft Additional comments: epigastric pain - Extremities Exam Extremities exam: Positive for: full ROM, normal capillary refill - Neurological Exam Neurological exam: Alert, Oriented x3 - Psychiatric Exam Psychiatric exam: Normal Affect, Normal Mood - Skin Skin Exam: Dry, Normal Color, Warm Results - Vital Signs Recent Vital Signs: Last Vital Signs Temp 98.4 F 11/28/18 08:07 Pulse 68 11/28/18 08:07 Resp 20 11/28/18 08:07 BP 137/64 11/28/18 09:21 Pulse Ox 99 11/28/18 08:07 - Labs Result Diagrams: 11/28/18 05:30 11/28/18 05:30 Labs: Laboratory Results - last 24 hr 11/27/18 11/27/18 11/27/18 15:00 15:10 15:10 WBC 8.3 RBC 5.12 Hgb 16.0 Hct 47.5 MCV 92.8 MCH 31.3 MCHC 33.7 RDW 12.4 Plt Count 305 MPV 11.0 Gran % 60.1 Lymph % (Auto) 30.0 [place] % (Auto) 9.1 H Eos % (Auto) 0.7 L Baso % (Auto) 0.1 Gran # 4.99 Lymph # (Auto) 2.5 [place] # (Auto) 0.8 H Eos # (Auto) 0.1 Baso # (Auto) 0.01 PT 11.5 INR 1.01 APTT 26.4 pO2 VBG pH VBG pCO2 VBG HCO3 VBG Total CO2 VBG O2 Sat (Calc) VBG Base Excess VBG Potassium Sodium Chloride Glucose Lactate FiO2 Potassium Carbon Dioxide Anion Gap BUN Creatinine Est GFR ( Amer) Est GFR (Non-Af Amer) Random Glucose Calcium Phosphorus 3.1 Magnesium Total Bilirubin AST ALT Alkaline Phosphatase Lactate Dehydrogenase Troponin I Total Protein Albumin Globulin Albumin/Globulin Ratio Triglycerides Cholesterol LDL Cholesterol Direct HDL Cholesterol Amylase Lipase Venous Blood Potassium Urine Color Urine Appearance Urine pH Ur Specific [place] Urine Protein Urine Glucose (UA) Urine Ketones Urine Blood Urine Nitrate Urine Bilirubin Urine Urobilinogen Ur Leukocyte Esterase 11/27/18 11/27/18 11/27/18 15:10 15:10 15:10 WBC RBC Hgb Hct MCV MCH MCHC RDW Plt Count MPV Gran % Lymph % (Auto) [place] % (Auto) Eos % (Auto) Baso % (Auto) Gran # Lymph # (Auto) [place] # (Auto) Eos # (Auto) Baso # (Auto) PT INR APTT pO2 39 VBG pH 7.36 VBG pCO2 49.0 VBG HCO3 27.7 VBG Total CO2 29.2 H VBG O2 Sat (Calc) 77.9 H VBG Base Excess 1.5 VBG Potassium 3.9 Sodium 138 137.0 Chloride 100 101.0 Glucose 120 H Lactate 1.6 FiO2 21.0 Potassium 3.7 Carbon Dioxide 27 Anion Gap 14 BUN 16 Creatinine 0.5 L Est GFR ( Amer) > 60 Est GFR (Non-Af Amer) > 60 Random Glucose 120 H Calcium 9.6 Phosphorus Magnesium 1.9 Total Bilirubin 0.7 AST 22 ALT 24 Alkaline Phosphatase 87 Lactate Dehydrogenase Troponin I < 0.01 Total Protein 7.6 Albumin 4.4 Globulin 3.2 Albumin/Globulin Ratio 1.4 Triglycerides Cholesterol LDL Cholesterol Direct HDL Cholesterol Amylase Lipase 56 Venous Blood Potassium 3.9 Urine Color Yellow Urine Appearance Clear Urine pH 6.0 Ur Specific [place] 1.025 Urine Protein Negative Urine Glucose (UA) Negative Urine Ketones Negative Urine Blood Negative Urine Nitrate Negative Urine Bilirubin Negative Urine Urobilinogen 0.2 Ur Leukocyte Esterase Negative 11/27/18 11/27/18 11/28/18 21:28 22:11 05:30 WBC 6.6 D RBC 4.76 Hgb 14.7 Hct 44.3 MCV 93.1 MCH 30.9 MCHC 33.2 RDW 12.3 Plt Count 259 MPV 11.2 H Gran % Lymph % (Auto) [place] % (Auto) Eos % (Auto) Baso % (Auto) Gran # Lymph # (Auto) [place] # (Auto) Eos # (Auto) Baso # (Auto) PT INR APTT pO2 VBG pH VBG pCO2 VBG HCO3 VBG Total CO2 VBG O2 Sat (Calc) VBG Base Excess VBG Potassium Sodium Chloride Glucose Lactate FiO2 Potassium Carbon Dioxide Anion Gap BUN Creatinine Est GFR ( Amer) Est GFR (Non-Af Amer) Random Glucose Calcium Phosphorus Magnesium Total Bilirubin AST ALT Alkaline Phosphatase Lactate Dehydrogenase 371 Troponin I < 0.01 Total Protein Albumin Globulin Albumin/Globulin Ratio Triglycerides Cholesterol LDL Cholesterol Direct HDL Cholesterol Amylase Lipase Venous Blood Potassium Urine Color Urine Appearance Urine pH Ur Specific [place] Urine Protein Urine Glucose (UA) Urine Ketones Urine Blood Urine Nitrate Urine Bilirubin Urine Urobilinogen Ur Leukocyte Esterase 11/28/18 05:30 WBC RBC Hgb Hct MCV MCH MCHC RDW Plt Count MPV Gran % Lymph % (Auto) [place] % (Auto) Eos % (Auto) Baso % (Auto) Gran # Lymph # (Auto) [place] # (Auto) Eos # (Auto) Baso # (Auto) PT INR APTT pO2 VBG pH VBG pCO2 VBG HCO3 VBG Total CO2 VBG O2 Sat (Calc) VBG Base Excess VBG Potassium Sodium 136 Chloride 104 Glucose Lactate FiO2 Potassium 4.0 Carbon Dioxide 24 Anion Gap 12 BUN 13 Creatinine 0.5 L Est GFR ( Amer) > 60 Est GFR (Non-Af Amer) > 60 Random Glucose 116 H Calcium 8.8 Phosphorus Magnesium Total Bilirubin 0.7 AST 20 ALT 22 Alkaline Phosphatase 78 Lactate Dehydrogenase Troponin I < 0.01 Total Protein 6.6 Albumin 3.8 Globulin 2.8 Albumin/Globulin Ratio 1.4 Triglycerides 179 H Cholesterol 230 H LDL Cholesterol Direct 151 H HDL Cholesterol 51 Amylase 56 Lipase Venous Blood Potassium Urine Color Urine Appearance Urine pH Ur Specific [place] Urine Protein Urine Glucose (UA) Urine Ketones Urine Blood Urine Nitrate Urine Bilirubin Urine Urobilinogen Ur Leukocyte Esterase Assessment & Plan - Assessment and Plan (Free Text) Assessment: A 63 year old female who came in to the ER due to complaints of epigastric pain with nausea and vomiting. History of hypertension, neuropathy, TIA, asthma,arthritis,GERD, migraine, epilepsy during childhood, bronchitis, hyperlipidemia,sleep apnea, former smoker, left foot surgery.Denies chest pain, denies shortness of breath. Troponin normal x 3. Ct of abdomen showed sigmoid diverticulosis, mild acute pancreatitis. GI evaluation. For Echo to evaluate LV function. Out patient stress test. Rule out acute coronary syndrome. No previous cardiac work up done at [facility]. Plan: Denies chest pain Echo to evaluate LV function GI evaluation Out patient stress test Blood pressure controlled Heart rate controlled On Norvasc 10 mg daily,Lovenox 40 mg daily,Protonix 40 mg daily Pain management for abdominal pain Continue IV hydration Further recommendation during hospital course Will follow up Plan and treatment discussed with Dr. Ojeda Thank you Dr. Stockton for the opportunity of taking care of Adriel Dukes - Date & Time Date: 11/28/18 Time: 06:35
--- NOTE | 2018-11-28 10:55 | CON ---
DATE: 11/28/2018 REASON FOR CONSULTATION: Cardiac evaluation, chest pain, epigastric pain. BRIEF CLINICAL HISTORY: This is a 63-year-old female with past medical history significant for obesity, TIA, came to the emergency room with epigastric pain, pain in the abdomen radiating to the chest and when laid down says everything is coming from stomach to upside. ID consult was called to rule out coronary artery disease with ischemia. The patient denies any episode of chest pain, dyspnea on exertion. So far, troponin is x3 negative, remains negative. EKG shows normal sinus rate of 68. No acute ST-T changes noted. This note is addition to dictated by our nurse practitioner, Dulce Maria Vinson. The patient has some abdominal pain and elevated triglyceride, cholesterol and LDL. EKG , so far no evidence of acute IA. RECOMMENDATION: We will get echo, followup serial CPK. Suggest GI evaluation and possible discharge home if cleared by the GI. We will schedule stress test as outpatient. If patient remains, we will schedule stress test on Friday. Discussed with . This note is addition to dictated by our nurse practitioner, Dulce Maria Vinson. Thank you Dr. Stockton for providing us the opportunity in taking care of the patient, Adriel Dukes. We will get an echo to assess LV function. The patient's CAT scan of the abdomen shows mild infiltration of the retroperitoneal fat prior to pancreatic head. This may affect early pancreatitis, early or mild acute pancreatitis. Needs GI evaluation where the patient is cleared by GI, okay to be discharged. From Cardiology point of view, we will schedule stress test as outpatient. Thank you Dr. Stockton for providing us the opportunity in taking care of the patient. We will put low dose of atorvastatin 40 mg daily. We will follow with you. We will also put baby aspirin. Conner Ojeda MD
--- NOTE | 2018-11-28 14:25 | CP.PCM.PN ---
<Georgina Chávez - Last Filed: 11/28/18 14:12> Subjective - Date & Time of Evaluation Date of Evaluation: 11/28/18 Time of Evaluation: 09:22 - Subjective Subjective: Georgina Chávez PGY1 Hospital Progress Note Patient seen and examined at bedside this morning. No acute events reported overnight. Continues to admit to abdominal pain, given tramadol. Advanced to hepatic diet today. Offers no new complaints today. Objective - Vital Signs/Intake and Output Vital Signs (last 24 hours): Temp Pulse Resp BP Pulse Ox 98.4 F 68 20 137/64 99 11/28/18 08:07 11/28/18 10:00 11/28/18 08:07 11/28/18 09:21 11/28/18 08:07 Intake and Output: 11/28/18 11/28/18 06:59 18:59 Intake Total 900 Balance 900 - Medications Medications: Current Medications Amlodipine Besylate (Norvasc) 10 mg PO DAILY [facility] Last Admin: 11/28/18 09:21 Dose: 10 mg Aspirin (Ecotrin) 81 mg PO DAILY [facility] Last Admin: 11/28/18 12:58 Dose: 81 mg Atorvastatin Calcium (Lipitor) 40 mg PO DIN [facility] Enoxaparin Sodium (Lovenox) 40 mg SC DAILY [facility]; Protocol Last Admin: 11/28/18 09:21 Dose: 40 mg Gabapentin (Neurontin) 400 mg PO DAILY [facility]; Protocol Last Admin: 11/28/18 09:21 Dose: 400 mg Sodium Chloride (Sodium Chloride 0.9%) 1,000 mls @ 100 mls/hr IV .Q10H [facility] Last Admin: 11/28/18 09:23 Dose: 100 mls/hr Ondansetron HCl (Zofran Inj) 4 mg IVP Q6H PRN PRN Reason: Nausea/Vomiting Last Admin: 11/28/18 12:58 Dose: 4 mg Pantoprazole Sodium (Protonix Ec Tab) 40 mg PO 0600 [facility] Last Admin: 11/28/18 05:01 Dose: 40 mg - Labs Labs: 11/28/18 05:30 11/28/18 05:30 PT 11.5 SECONDS (9.4-12.5) 11/27/18 15:10 INR 1.01 11/27/18 15:10 APTT 26.4 Seconds (25.1-36.5) 11/27/18 15:10 - Additional Findings Additional findings: - Constitutional Appears: Well, Non-toxic, No Acute Distress - Head Exam Head Exam: ATRAUMATIC, NORMOCEPHALIC - Eye Exam Eye Exam: EOMI, Normal appearance, PERRL - ENT Exam ENT Exam: Mucous Membranes Moist, Normal Exam - Respiratory Exam Respiratory Exam: Clear to Auscultation Bilateral, NORMAL BREATHING PATTERN - Cardiovascular Exam Cardiovascular Exam: REGULAR RHYTHM, +S1, +S2. absent: Systolic Murmur - GI/Abdominal Exam GI & Abdominal Exam: Normal Bowel Sounds, Soft, epigastric tenderness Additional comments: globular abdomen, vanessa, rovsing, obturator signs are negative - Extremities Exam Extremities exam: Positive for: normal capillary refill, normal inspection, pedal pulses present - Back Exam Back exam: absent CVA tenderness (L), CVA tenderness (R) - Neurological Exam Neurological exam: Alert, CN II-XII Intact, Oriented x3 - Skin Skin Exam: Dry, Intact, Normal Color, Warm Assessment and Plan - Assessment and Plan (Free Text) Assessment: 63F w/ PMH of TIA, L sided neurologic disease?, HTN, Neuropathy, presented to [facility] [place] [facility] ED on 11/27 w/ c/o epigastric abd pain, and nausea vomiting x3 days. She also admitted to chest pain. Patient admitted for possible pancreatitis and ACS rule out. Upon discharge patient is to follow up with PMD, Dr. Nayeli Olosn Plan: Abdominal Pain -consider 2/2 pancreatitis - 11/27 CTAP showed Mild infiltration of the retroperitoneal fat adjacent to the pancreatic head. This may reflect early or mild acute pancreatitis. No pancreatic mass or ductal dilatation. No additional significant/acute abnormality. -advanced to hepatic diet today, tolerated with some difficulty. Patient states she would like to try same diet again for dinner -lipase WNL -NS 100 cc/hr -zofran prn, tramadol 25mg q6 prn -Protonix 40mg QD Chest pain -troponins x3 <0.01 -initial EKG showed NSR at 87bpm, no ST changes -lipid panel showed HLD -start lipitor -Dr. Julian Cardiology on consult Hx HTN -continue norvasc Hx Neuropathy -continue Neurontin 400 QD PPX/Diet -SCD, protonix -hepatic diet Patient seen and case discussed with attending, Dr. Interiano <Giovani Interiano - Last Filed: 11/28/18 14:43> Objective - Vital Signs/Intake and Output Vital Signs (last 24 hours): Temp Pulse Resp BP Pulse Ox 98.4 F 68 20 137/64 99 11/28/18 08:07 11/28/18 10:00 11/28/18 08:07 11/28/18 09:21 11/28/18 08:07 Intake and Output: 11/28/18 11/28/18 06:59 18:59 Intake Total 900 Balance 900 - Medications Medications: Current Medications Amlodipine Besylate (Norvasc) 10 mg PO DAILY [facility] Last Admin: 11/28/18 09:21 Dose: 10 mg Aspirin (Ecotrin) 81 mg PO DAILY [facility] Last Admin: 11/28/18 12:58 Dose: 81 mg Atorvastatin Calcium (Lipitor) 40 mg PO DIN [facility] Enoxaparin Sodium (Lovenox) 40 mg SC DAILY [facility]; Protocol Last Admin: 11/28/18 09:21 Dose: 40 mg Gabapentin (Neurontin) 400 mg PO DAILY [facility]; Protocol Last Admin: 11/28/18 09:21 Dose: 400 mg Sodium Chloride (Sodium Chloride 0.9%) 1,000 mls @ 100 mls/hr IV .Q10H [facility] Last Admin: 11/28/18 09:23 Dose: 100 mls/hr Ondansetron HCl (Zofran Inj) 4 mg IVP Q6H PRN PRN Reason: Nausea/Vomiting Last Admin: 11/28/18 12:58 Dose: 4 mg Pantoprazole Sodium (Protonix Ec Tab) 40 mg PO 0600 [facility] Last Admin: 11/28/18 05:01 Dose: 40 mg Tramadol HCl (Ultram) 25 mg PO Q6 PRN PRN Reason: Pain, severe (8-10) - Labs Labs: 11/28/18 05:30 11/28/18 05:30 PT 11.5 SECONDS (9.4-12.5) 11/27/18 15:10 INR 1.01 11/27/18 15:10 APTT 26.4 Seconds (25.1-36.5) 11/27/18 15:10 Attending/Attestation - Attestation I have personally seen and examined this patient.: Yes I have fully participated in the care of the patient.: Yes I have reviewed all pertinent clinical information, including history, physical exam and plan: Yes Notes (Text): 11/28/18 14:37 63 year old female with past medical history of hypertension who presented with complaint of epigastric/chest pain with nausea/vomiting. She was found to have early/mild acute pancreatitis on CT abd/pelvis. Symptoms are slowly improving and her diet is being advanced as tolerated. Serial cardiac enzymes were negative and ACS has been ruled out. She was seen by cardiology today; will follow up with recommendations. Possible d/c planning in 24-48 hrs if symptoms continue to improve and she is tolerating diet. Giovani Interiano MD Hospitalist.
--- NOTE | 2018-11-28 17:50 | CARD ---
APPROVED REPORT Date of service: 11/28/2018 EKG Measurement Heart [id number] <Conclusion> Normal sinus rhythm Normal ECG
--- NOTE | 2018-11-28 20:01 | CARD ---
APPROVED REPORT Date of service: 11/28/2018 EXAM: Two-dimensional and M-mode echocardiogram with Doppler and color Doppler. INDICATION CP 2D DIMENSIONS Left Atrium (2D)3.6 (1.6-4.0cm)IVSd1.2 (0.7-1.1cm) LVDd4.3 (3.9-5.9cm)PWd1.3 (0.7-1.1cm) LVDs2.8 (2.5-4.0cm)FS (%) 33.7 % LVEF (%)62.9 (>50%) M-Mode DIMENSIONS Aortic Root3.00 (2.2-3.7cm)Aortic Cusp Exc.2.00 (1.5-2.0cm) Aortic Valve AoV Peak Xywsmxrm452.0cm/Joe Peak GR.16mmHg Mitral Valve MV E Cohyygkj771.0cm/sMV A Vqnmfirx138.0cm/sE/A ratio0.9 TDI Lateral E' Peak V9.07cm/sMedial E' Peak V7.80cm/sE/Lateral E'12.1 E/Medial E'14.1 Tricuspid Valve TR Peak [id number]/sRAP [id number] Peak Gr.34mmHg [id number] LEFT VENTRICLE The left ventricle is normal size. There is mild concentric left ventricular hypertrophy. The left ventricular function is normal.EF-65% There is normal LV segmental wall motion. Transmitral Doppler flow pattern is Grade III-reversible restrictive diastolic dysfunction. No left ventricle thrombus noted on this study. There is no ventricular septal defect visualized. There is no left ventricular aneurysm. There is no mass noted in the left ventricle. RIGHT VENTRICLE The right ventricle is normal size. There is normal right ventricular wall thickness. The right ventricular systolic function is normal. ATRIA The left atrium size is normal. The right atrium size is normal. The interatrial septum is intact with no evidence for an atrial septal defect. AORTIC VALVE The aortic valve is thickened but opens well. The aortic valve is mildly to moderately thickened. No aortic regurgitation is present. There is no aortic valvular stenosis. There is no aortic valvular vegetation. MITRAL VALVE The mitral valve is thickened but opens well. Mitral annular calcification is mild to moderate. Mitral regurgitation is trace. There is no mitral valve stenosis. There is no evidence of mitral valve prolapse. TRICUSPID VALVE The tricuspid valve leaflets are thickened , but open well. There is mild tricuspid regurgitation.RVSP-44 mmof hg There is no tricuspid valve stenosis. There is no tricuspid valve prolapse or vegetation. PULMONIC VALVE The pulmonary valve is normal in structure. There is no pulmonic valvular regurgitation. There is no pulmonic valvular stenosis. GREAT VESSELS The aortic root is normal in size. The ascending aorta is normal in size. The pulmonary artery is normal. The IVC is normal in size and collapses >50% with inspiration. PERICARDIAL EFFUSION There is no pleural effusion. There is a trace pericardial effusion. <Conclusion> The left ventricle is normal size. There is mild concentric left ventricular hypertrophy. The left ventricular function is normal.EF-65% Mitral regurgitation is trace. There is mild tricuspid regurgitation.RVSP-44 mmof hg The IVC is normal in size and collapses >50% with inspiration. There is a trace pericardial effusion.
--- NOTE | 2018-11-28 23:02 | CARD ---
APPROVED REPORT Date of service: 11/27/2018 EKG Measurement Heart [id number] <Conclusion> Normal sinus rhythm Normal ECG
--- NOTE | 2018-11-28 23:25 | CARD ---
APPROVED REPORT Date of service: 11/27/2018 EKG Measurement Heart [id number] <Conclusion> Normal sinus rhythm Nonspecific T wave abnormality Abnormal ECG
[2018-11-29 06:53] LABS: ALB/GLOB RATIO 1.3 (1.1-1.8); ALBUMIN 3.1 g/dL (3.0-4.8); ALT/SGPT 33 U/L (7-56); AST/SGOT 17 U/L (14-36); BLOOD UREA NITROGEN 10 mg/dL (7-21); CALCIUM 8.4 mg/dL (8.4-10.5); GFR NON-AFRICAN AMERICAN > 60
[2018-11-29 06:57] LABS: HEMOGLOBIN 13.2 g/dL (12.0-16.0); MEAN CELL VOLUME 94.7 fl (80.0-105.0); MEAN CORPUSCULAR HEMOGLOBIN 30.7 pg (25.0-35.0); MEAN CORPUSCULAR HGB CONC 32.4 g/dl (31.0-37.0); MEAN PLATELET VOLUME 11.2 fl (7.0-11.0); RBC 4.3 10^6/uL (3.5-6.1); RED CELL DISTRIBUTION WIDTH 12.6 % (11.5-14.5)
--- NOTE | 2018-11-29 07:24 | CP.PCM.PN ---
Subjective - Date & Time of Evaluation Date of Evaluation: 11/29/18 Time of Evaluation: 06:40 - Subjective Subjective: Awake, alert, denies chest pain, feels better, able to tolerate diet Reason for consultation: Cardiac evaluation of epigastric pain, rule out acute coronary syndrome,History of hypertension, neuropathy, TIA,asthma,arthritis,GERD,migraine, epilepsy during childhood,bronchitis, hyperlipidemia, former smoker, left foot surgery, admitted for mild acute pancreatitis Seen and examined by me and Dr. Ojeda Objective - Vital Signs/Intake and Output Vital Signs (last 24 hours): Temp Pulse Resp BP Pulse Ox 97.6 F 60 18 154/79 H 98 11/28/18 17:26 11/28/18 23:36 11/28/18 17:26 11/28/18 23:36 11/28/18 17:26 Intake and Output: 11/29/18 11/29/18 06:59 18:59 Intake Total 1560 Balance 1560 - Medications Medications: Current Medications Amlodipine Besylate (Norvasc) 10 mg PO DAILY [facility] Last Admin: 11/28/18 09:21 Dose: 10 mg Aspirin (Ecotrin) 81 mg PO DAILY [facility] Last Admin: 11/28/18 12:58 Dose: 81 mg Atorvastatin Calcium (Lipitor) 40 mg PO DIN GUERA Enoxaparin Sodium (Lovenox) 40 mg SC DAILY [facility]; Protocol Last Admin: 11/28/18 09:21 Dose: 40 mg Gabapentin (Neurontin) 400 mg PO DAILY [facility]; Protocol Last Admin: 11/28/18 09:21 Dose: 400 mg Sodium Chloride (Sodium Chloride 0.9%) 1,000 mls @ 100 mls/hr IV .Q10H [facility] Last Admin: 11/28/18 09:23 Dose: 100 mls/hr Ondansetron HCl (Zofran Inj) 4 mg IVP Q6H PRN PRN Reason: Nausea/Vomiting Last Admin: 11/28/18 12:58 Dose: 4 mg Pantoprazole Sodium (Protonix Ec Tab) 40 mg PO 0600 [facility] Last Admin: 11/28/18 05:01 Dose: 40 mg Tramadol HCl (Ultram) 25 mg PO Q6 PRN PRN Reason: Pain, severe (8-10) Last Admin: 11/28/18 19:01 Dose: 25 mg - Labs Labs: 11/29/18 05:30 12/30/18 05:30 PT 11.5 SECONDS (9.4-12.5) 11/27/18 15:10 INR 1.01 11/27/18 15:10 APTT 26.4 Seconds (25.1-36.5) 11/27/18 15:10 - Constitutional Appears: Non-toxic, No Acute Distress - Head Exam Head Exam: NORMAL INSPECTION, NORMOCEPHALIC - Eye Exam Eye Exam: Normal appearance Pupil Exam: NORMAL ACCOMODATION - ENT Exam ENT Exam: Mucous Membranes Moist, Normal Exam - Respiratory Exam Respiratory Exam: Clear to Ausculation Bilateral, NORMAL BREATHING PATTERN - Cardiovascular Exam Cardiovascular Exam: +S1, +S2 - GI/Abdominal Exam GI & Abdominal Exam: Soft, Normal Bowel Sounds - Extremities Exam Extremities Exam: Full ROM, Normal Capillary Refill - Neurological Exam Neurological Exam: Alert, Awake, Oriented x3 - Psychiatric Exam Psychiatric exam: Normal Affect, Normal Mood - Skin Skin Exam: Dry, Normal Color, Warm Assessment and Plan - Assessment and Plan (Free Text) Assessment: A 63 year old female who came in to the ER due to complaints of epigastric pain with nausea and vomiting. History of hypertension, neuropathy, TIA, asthma,arthritis,GERD, migraine, epilepsy during childhood, bronchitis, hyperlipidemia,sleep apnea, former smoker, left foot surgery.Denies chest pain, denies shortness of breath. Troponin normal x 3. Ct of abdomen showed sigmoid diverticulosis, mild acute pancreatitis. GI evaluation. Out patient stress test. Rule out acute coronary syndrome. No previous cardiac work up done at [facility]. Echo done- normal LV size, LVEF 65%, Trace MR, mild TR RVSP 44mmHg, trace pericardial effusion. Cardiac status stable. Plan: Echo done- normal LV size, LVEF 65% Trace MR, mild TR RVSP 44mmHg, trace pericardial effusion. Denies chest pain, feels better, able to tolerate diet Symptoms resolved Follow up with GI for evaluation Scheduled for stress test Friday, but if going home can be done as out patient Blood pressure controlled Heart rate controlled On Norvasc 10 mg daily,Lovenox 40 mg daily,Protonix 40 mg daily May discharge from cardiac standpoint, Out patient stress test Will follow up Plan and treatment discussed with Dr. Ojeda
[2018-11-29 08:36] VITALS: BP 102/49; RESP 20; TEMP 97.5; O2SAT 95
--- NOTE | 2018-11-29 10:39 | CP.PCM.DIS ---
<Georgina Chávez - Last Filed: 11/29/18 10:35> Provider - Provider Date of Admission: 11/27/18 19:14 Attending physician: Giovani Interiano MD Primary care physician: Rosanna Olson MD Consults: 11/27/18 20:51 Consult [Physician Consult] Routine Comment: chest pressure like elephant sitting on chest, sob Consulting Provider: Conner Julian Consulting Physician: Conner Julian Reason for Consult: chest pressure like elephant sitting on chest, sob Time Spent in preparation of Discharge (in minutes): 35 Hospital Course - Lab Results Lab Results: Most Recent Lab Values WBC 5.0 10^3/uL (4.5-11.0) D 11/29/18 05:30 RBC 4.30 10^6/uL (3.5-6.1) 11/29/18 05:30 Hgb 13.2 g/dL (12.0-16.0) 11/29/18 05:30 Hct 40.7 % (36.0-48.0) 11/29/18 05:30 MCV 94.7 fl (80.0-105.0) 11/29/18 05:30 MCH 30.7 pg (25.0-35.0) 11/29/18 05:30 MCHC 32.4 g/dl (31.0-37.0) 11/29/18 05:30 RDW 12.6 % (11.5-14.5) 11/29/18 05:30 Plt Count 209 10^3/uL (120.0-450.0) 11/29/18 05:30 MPV 11.2 fl (7.0-11.0) H 11/29/18 05:30 Gran % 60.1 % (50.0-68.0) 11/27/18 15:10 Lymph % (Auto) 30.0 % (22.0-35.0) 11/27/18 15:10 Wake % (Auto) 9.1 % (1.0-6.0) H 11/27/18 15:10 Eos % (Auto) 0.7 % (1.5-5.0) L 11/27/18 15:10 Baso % (Auto) 0.1 % (0.0-3.0) 11/27/18 15:10 Gran # 4.99 (1.4-6.5) 11/27/18 15:10 Lymph # (Auto) 2.5 (1.2-3.4) 11/27/18 15:10 Wake # (Auto) 0.8 (0.1-0.6) H 11/27/18 15:10 Eos # (Auto) 0.1 (0.0-0.7) 11/27/18 15:10 Baso # (Auto) 0.01 K/mm3 (0.0-2.0) 11/27/18 15:10 PT 11.5 SECONDS (9.4-12.5) 11/27/18 15:10 INR 1.01 11/27/18 15:10 APTT 26.4 Seconds (25.1-36.5) 11/27/18 15:10 pO2 39 mm/Hg (30-55) 11/27/18 15:10 VBG pH 7.36 (7.32-7.43) 11/27/18 15:10 VBG pCO2 49.0 (40-60) 11/27/18 15:10 VBG HCO3 27.7 mmol/l (21-28) 11/27/18 15:10 VBG Total CO2 29.2 mmol.L (22-28) H 11/27/18 15:10 VBG O2 Sat (Calc) 77.9 % (40-65) H 11/27/18 15:10 VBG Base Excess 1.5 mmol/L (0.0-2.0) 11/27/18 15:10 VBG Potassium 3.9 mmol/L (3.6-5.2) 11/27/18 15:10 Sodium 137.0 mmol/L (132-148) 11/27/18 15:10 Chloride 101.0 mmol/L (98-107) 11/27/18 15:10 Glucose 120 mg/dl (65-105) H 11/27/18 15:10 Lactate 1.6 mmol/L (0.7-2.1) 11/27/18 15:10 FiO2 21.0 % 11/27/18 15:10 Sodium 137 mmol/L (132-148) 11/29/18 05:30 Potassium 4.4 mmol/L (3.6-5.0) 11/29/18 05:30 Chloride 106 mmol/L (98-107) 11/29/18 05:30 Carbon Dioxide 29 mmol/L (21-33) 11/29/18 05:30 Anion Gap 6 (10-20) L 11/29/18 05:30 BUN 10 mg/dL (7-21) 11/29/18 05:30 Creatinine 0.5 mg/dl (0.7-1.2) L 11/29/18 05:30 Est GFR ( Amer) > 60 11/29/18 05:30 Est GFR (Non-Af Amer) > 60 11/29/18 05:30 Random Glucose 89 mg/dL (70-110) 11/29/18 05:30 Hemoglobin A1c 6.1 % (4.2-6.5) 11/27/18 15:00 Calcium 8.4 mg/dL (8.4-10.5) 11/29/18 05:30 Phosphorus 3.1 mg/dL (2.5-4.5) 11/27/18 15:00 Magnesium 1.9 mg/dL (1.7-2.2) 11/27/18 15:10 Total Bilirubin 0.4 mg/dL (0.2-1.3) 11/29/18 05:30 AST 17 U/L (14-36) 11/29/18 05:30 ALT 33 U/L (7-56) 11/29/18 05:30 Alkaline Phosphatase 57 U/L (38-126) 11/29/18 05:30 Lactate Dehydrogenase 371 U/L (333-699) 11/27/18 22:11 Troponin I < 0.01 ng/mL 11/28/18 05:30 Total Protein 5.5 g/dL (5.8-8.3) L 11/29/18 05:30 Albumin 3.1 g/dL (3.0-4.8) 11/29/18 05:30 Globulin 2.4 gm/dL 11/29/18 05:30 Albumin/Globulin Ratio 1.3 (1.1-1.8) 11/29/18 05:30 Triglycerides 179 mg/dL (35-160) H 11/28/18 05:30 Cholesterol 230 mg/dL (130-200) H 11/28/18 05:30 LDL Cholesterol Direct 151 mg/dL (0-129) H 11/28/18 05:30 HDL Cholesterol 51 mg/dL (29-60) 11/28/18 05:30 Amylase 56 U/L (35-125) 11/28/18 05:30 Lipase 56 U/L (23-300) 11/27/18 15:10 Venous Blood Potassium 3.9 mmol/L (3.6-5.2) 11/27/18 15:10 Urine Color Yellow (YELLOW) 11/27/18 15:10 Urine Appearance Clear (CLEAR) 11/27/18 15:10 Urine pH 6.0 (4.7-8.0) 11/27/18 15:10 Ur Specific [place] 1.025 (1.005-1.035) 11/27/18 15:10 Urine Protein Negative mg/dL (<30 mg/dL) 11/27/18 15:10 Urine Glucose (UA) Negative mg/dL (NEGATIVE) 11/27/18 15:10 Urine Ketones Negative mg/dL (NEGATIVE) 11/27/18 15:10 Urine Blood Negative (NEGATIVE) 11/27/18 15:10 Urine Nitrate Negative (NEGATIVE) 11/27/18 15:10 Urine Bilirubin Negative (NEGATIVE) 11/27/18 15:10 Urine Urobilinogen 0.2 E.U./dL (<1 E.U./dL) 11/27/18 15:10 Ur Leukocyte Esterase Negative Peg/uL (NEGATIVE) 11/27/18 15:10 - Hospital Course Hospital Course: Upon admission, 63F w/ PMH of TIA, L sided neurologic disease?, HTN, Neuropathy, presented to [facility] ED on 11/27 w/ c/o Epigastric abd pain, and nausea vomiting x3 days. She reported pains began on located in epigastric region and migrated diffusely throughout her abdomen. Today the pain is located in her epigastric region and radiates into her RUQ; She also has intermittent pain located in LLQ/ L periumbical region. Patient reports the pain is worse when she is laying down however denies any worsening or improvement w/ food. She reports initially she could not tolerate diet however at this time she has an okay appetite and is able to tolerate liquids w/o problem. She does report an epigastric burning sensation which radiates into her chest which is chronic for her; and reports a subsequent abdominal pressure associated. She denies any urinary discomfort, burning, or bleeding. During hospital course, CTAP showed Mild infiltration of the retroperitoneal fat adjacent to the pancreatic head. This may reflect early or mild acute pancreatitis. No pancreatic mass or ductal dilatation. No additional significant/acute abnormality. Lipase was noted to be WNL. Patient was initially kept NPO and on fluids for suspicion of pancreatitis. She was given zofran and tramadol for nausea and pain respectively. Her diet was advanced through hospital course and on day of discharge, she was tolerating food with complaints and going to the bathroom without complaints. Troponins were <0.01 x3 and initial EKG was NSR with no St changes. She was started on lipitor for her abnormal lipid panel. Patient agreed to schedule an outpatient stress test. All patient's questions were answered and she agreed with discharge. Discharge Exam - Additional Findings Additional findings: - Constitutional Appears: Well, Non-toxic, No Acute Distress - Head Exam Head Exam: ATRAUMATIC, NORMOCEPHALIC - Eye Exam Eye Exam: EOMI, Normal appearance, PERRL - ENT Exam ENT Exam: Mucous Membranes Moist, Normal Exam - Respiratory Exam Respiratory Exam: Clear to Auscultation Bilateral, NORMAL BREATHING PATTERN - Cardiovascular Exam Cardiovascular Exam: REGULAR RHYTHM, +S1, +S2. absent: Systolic Murmur - GI/Abdominal Exam GI & Abdominal Exam: Normal Bowel Sounds, Soft, no epigastric tenderness Additional comments: globular abdomen, vanessa, rovsing, obturator signs are negative - Extremities Exam Extremities exam: Positive for: normal capillary refill, normal inspection, pedal pulses present - Back Exam Back exam: absent CVA tenderness (L), CVA tenderness (R) - Neurological Exam Neurological exam: Alert, CN II-XII Intact, Oriented x3 - Skin Skin Exam: Dry, Intact, Normal Color, Warm Discharge Plan - Discharge Medications Prescriptions: amLODIPine [Norvasc] 10 mg PO DAILY #14 tab Atorvastatin [Lipitor] 40 mg PO DIN #14 tab - Follow Up Plan Condition: FAIR Disposition: HOME/ ROUTINE Instructions: Pancreatitis (DC) Additional Instructions: Please follow up with up with your primary care doctor within 3-5 days of discharge. Please continue to advance your diet as tolerated. Do not eat heavy food for a few days. You have been given a refill script for norvasc per your request. As per our discussion, you do not need any other refills at this time. You have been started on a cholesterol medication called lipitor that you will take once daily. Please get refills from your doctor. Please continue taking your home medications as per your primary care doctor. Please schedule an outpatient cardiac stress test with your emergency room physician, Dr. Ojeda. A referral has been given to you. Please return to the ED for any new or worsening symptoms. Phone number for Stress Lab [phone]. Referrals: Conner Ojeda MD [Staff Provider] - Rosanna Olson MD [Primary Care Provider] - <Giovani Interiano - Last Filed: 11/29/18 15:33> Provider - Provider Date of Admission: 11/27/18 19:14 Attending physician: Giovani Interiano MD Primary care physician: Rosanna Olson MD Consults: 11/27/18 20:51 Consult [Physician Consult] Routine Comment: chest pressure like elephant sitting on chest, sob Consulting Provider: Conner Julian Consulting Physician: Conner Julian Reason for Consult: chest pressure like elephant sitting on chest, sob Hospital Course - Lab Results Lab Results: Micro Results 11/27/18 15:10 Urine Urine Culture - Final 10-50,000 CFU/ML. MULTIPLE SPECIES. PROBABLE CONTAMINATION. Most Recent Lab Values WBC 5.0 10^3/uL (4.5-11.0) D 11/29/18 05:30 RBC 4.30 10^6/uL (3.5-6.1) 11/29/18 05:30 Hgb 13.2 g/dL (12.0-16.0) 11/29/18 05:30 Hct 40.7 % (36.0-48.0) 11/29/18 05:30 MCV 94.7 fl (80.0-105.0) 11/29/18 05:30 MCH 30.7 pg (25.0-35.0) 11/29/18 05:30 MCHC 32.4 g/dl (31.0-37.0) 11/29/18 05:30 RDW 12.6 % (11.5-14.5) 11/29/18 05:30 Plt Count 209 10^3/uL (120.0-450.0) 11/29/18 05:30 MPV 11.2 fl (7.0-11.0) H 11/29/18 05:30 Gran % 60.1 % (50.0-68.0) 11/27/18 15:10 Lymph % (Auto) 30.0 % (22.0-35.0) 11/27/18 15:10 Wake % (Auto) 9.1 % (1.0-6.0) H 11/27/18 15:10 Eos % (Auto) 0.7 % (1.5-5.0) L 11/27/18 15:10 Baso % (Auto) 0.1 % (0.0-3.0) 11/27/18 15:10 Gran # 4.99 (1.4-6.5) 11/27/18 15:10 Lymph # (Auto) 2.5 (1.2-3.4) 11/27/18 15:10 Wake # (Auto) 0.8 (0.1-0.6) H 11/27/18 15:10 Eos # (Auto) 0.1 (0.0-0.7) 11/27/18 15:10 Baso # (Auto) 0.01 K/mm3 (0.0-2.0) 11/27/18 15:10 PT 11.5 SECONDS (9.4-12.5) 11/27/18 15:10 INR 1.01 11/27/18 15:10 APTT 26.4 Seconds (25.1-36.5) 11/27/18 15:10 pO2 39 mm/Hg (30-55) 11/27/18 15:10 VBG pH 7.36 (7.32-7.43) 11/27/18 15:10 VBG pCO2 49.0 (40-60) 11/27/18 15:10 VBG HCO3 27.7 mmol/l (21-28) 11/27/18 15:10 VBG Total CO2 29.2 mmol.L (22-28) H 11/27/18 15:10 VBG O2 Sat (Calc) 77.9 % (40-65) H 11/27/18 15:10 VBG Base Excess 1.5 mmol/L (0.0-2.0) 11/27/18 15:10 VBG Potassium 3.9 mmol/L (3.6-5.2) 11/27/18 15:10 Sodium 137.0 mmol/L (132-148) 11/27/18 15:10 Chloride 101.0 mmol/L (98-107) 11/27/18 15:10 Glucose 120 mg/dl (65-105) H 11/27/18 15:10 Lactate 1.6 mmol/L (0.7-2.1) 11/27/18 15:10 FiO2 21.0 % 11/27/18 15:10 Sodium 137 mmol/L (132-148) 11/29/18 05:30 Potassium 4.4 mmol/L (3.6-5.0) 11/29/18 05:30 Chloride 106 mmol/L (98-107) 11/29/18 05:30 Carbon Dioxide 29 mmol/L (21-33) 11/29/18 05:30 Anion Gap 6 (10-20) L 11/29/18 05:30 BUN 10 mg/dL (7-21) 11/29/18 05:30 Creatinine 0.5 mg/dl (0.7-1.2) L 11/29/18 05:30 Est GFR ( Amer) > 60 11/29/18 05:30 Est GFR (Non-Af Amer) > 60 11/29/18 05:30 Random Glucose 89 mg/dL (70-110) 11/29/18 05:30 Hemoglobin A1c 6.1 % (4.2-6.5) 11/27/18 15:00 Calcium 8.4 mg/dL (8.4-10.5) 11/29/18 05:30 Phosphorus 3.1 mg/dL (2.5-4.5) 11/27/18 15:00 Magnesium 1.9 mg/dL (1.7-2.2) 11/27/18 15:10 Total Bilirubin 0.4 mg/dL (0.2-1.3) 11/29/18 05:30 AST 17 U/L (14-36) 11/29/18 05:30 ALT 33 U/L (7-56) 11/29/18 05:30 Alkaline Phosphatase 57 U/L (38-126) 11/29/18 05:30 Lactate Dehydrogenase 371 U/L (333-699) 11/27/18 22:11 Troponin I < 0.01 ng/mL 11/28/18 05:30 Total Protein 5.5 g/dL (5.8-8.3) L 11/29/18 05:30 Albumin 3.1 g/dL (3.0-4.8) 11/29/18 05:30 Globulin 2.4 gm/dL 11/29/18 05:30 Albumin/Globulin Ratio 1.3 (1.1-1.8) 11/29/18 05:30 Triglycerides 179 mg/dL (35-160) H 11/28/18 05:30 Cholesterol 230 mg/dL (130-200) H 11/28/18 05:30 LDL Cholesterol Direct 151 mg/dL (0-129) H 11/28/18 05:30 HDL Cholesterol 51 mg/dL (29-60) 11/28/18 05:30 Amylase 56 U/L (35-125) 11/28/18 05:30 Lipase 56 U/L (23-300) 11/27/18 15:10 Venous Blood Potassium 3.9 mmol/L (3.6-5.2) 11/27/18 15:10 Urine Color Yellow (YELLOW) 11/27/18 15:10 Urine Appearance Clear (CLEAR) 11/27/18 15:10 Urine pH 6.0 (4.7-8.0) 11/27/18 15:10 Ur Specific [place] 1.025 (1.005-1.035) 11/27/18 15:10 Urine Protein Negative mg/dL (<30 mg/dL) 11/27/18 15:10 Urine Glucose (UA) Negative mg/dL (NEGATIVE) 11/27/18 15:10 Urine Ketones Negative mg/dL (NEGATIVE) 11/27/18 15:10 Urine Blood Negative (NEGATIVE) 11/27/18 15:10 Urine Nitrate Negative (NEGATIVE) 11/27/18 15:10 Urine Bilirubin Negative (NEGATIVE) 11/27/18 15:10 Urine Urobilinogen 0.2 E.U./dL (<1 E.U./dL) 11/27/18 15:10 Ur Leukocyte Esterase Negative Peg/uL (NEGATIVE) 11/27/18 15:10 Attending/Attestation - Attestation I have personally seen and examined this patient.: Yes I have fully participated in the care of the patient.: Yes I have reviewed all pertinent clinical information, including history, physical exam and plan: Yes Notes (Text): 11/29/18 15:32 63 year old female with past medical history of hypertension who presented with complaint of epigastric/chest pain with nausea/vomiting. She was found to have early/mild acute pancreatitis on CT abd/pelvis. Her diet was advanced as her symptoms improved. Serial cardiac enzymes were negative and ACS has been ruled out. She was seen by cardiology who recommended outpatient stress test. Patient is discharged home to follow up with pmd. Follow up with cardiology for outpatient stress test. Giovani Interiano MD Hospitalist.
[2018-11-29] MEDS: Enoxaparin 40 mg Syringe SC SCH (10:40)
[2018-11-29 11:50] VITALS: PULSE 82
--- NOTE | 2018-11-29 16:04 | PN ---
DATE: 11/29/2018 REASON FOR CONSULTATION AND FOLLOWUP: Cardiac evaluation, epigastric pian, rule out coronary artery disease, so far no evidence of acute HI, history of hypertension, history of neuropathy and asthma, migraine, history of epilepsy in the childhood, chest pain appears to be atypical, but given the multiple risk factors of coronary artery disease, she is scheduled for a stress test tomorrow. PLAN: We will keep n.p.o. after midnight for the stress test. It is learned the patient is going to be discharged, told the patient to come for a stress test. Thank you, Dr. Interiano, for providing us the opportunity in taking care of your patient, Adriel Dukes. This note is an addition to a note dictated by the nurse practitioner, Dulce Maria Vinson. We will follow with you. Conner Ojeda MD
== END 2018-11-29 12:17 | disposition home or self-care (01) ==
LOC: ED 14:03 → ERH 19:14 → 5RNO 21:18 → 3RNO 22:28
PROVIDERS: ADMIT Internal Medicine; ATTEND Internal Medicine
DX: K85.90 Acute pancreatitis without necrosis or infection, unspecified (principal); I10 Essential (primary) hypertension; G62.9 Polyneuropathy, unspecified; J45.909 Unspecified asthma, uncomplicated; G47.33 Obstructive sleep apnea (adult) (pediatric); H91.92 Unspecified hearing loss, left ear; K21.9 Gastro-esophageal reflux disease without esophagitis; E78.5 Hyperlipidemia, unspecified; K57.30 Diverticulosis of large intestine without perforation or abscess without bleeding; Z86.73 Personal history of transient ischemic attack (TIA), and cerebral infarction without residual deficits; Z87.891 Personal history of nicotine dependence
CPT/HCPCS: 36415; 71045; 74176; 80053; 80061; 81003; 82150; 82803; 83036; 83615; 83690; 83735; 84100; 84484; 85025; 85027; 85610; 85730; 87086; 93005; 93306; 96360; 96361; 96374; 99285; G0378; J0360; J1650; J1885; J2405; J2765; J7030; Q9967

== ENCOUNTER 2019-01-12 14:37 | Emergency (ER) | payer MEDICARE, MEDICAID ==
[2019-01-12 14:37] VITALS: BMI 34.0
[2019-01-12 15:08] VITALS: RESP 18; TEMP 98.9
[2019-01-12 16:32] LABS: BASO # 0.01 K/mm3 (0.0-2.0); BASO % 0.1 % (0.0-3.0); HEMOGLOBIN 15.5 g/dL (12.0-16.0); LYMPH # 2.7 (1.2-3.4); LYMPH % 24.6 % (22.0-35.0); MEAN CELL VOLUME 91.9 fl (80.0-105.0); MEAN CORPUSCULAR HEMOGLOBIN 31.4 pg (25.0-35.0); MEAN CORPUSCULAR HGB CONC 34.2 g/dl (31.0-37.0); MEAN PLATELET VOLUME 10.5 fl (7.0-11.0); MONO # 0.9 (0.1-0.6); MONO % 8.2 % (1.0-6.0); RBC 4.93 10^6/uL (3.5-6.1); RED CELL DISTRIBUTION WIDTH 12.3 % (11.5-14.5); WHITE BLOOD COUNT 11.1 10^3/uL (4.5-11.0)
[2019-01-12 16:40] LABS: ALB/GLOB RATIO 1.4 (1.1-1.8); ALBUMIN 4.3 g/dL (3.0-4.8); ALT/SGPT 18 U/L (7-56); AST/SGOT 20 U/L (14-36); BLOOD UREA NITROGEN 10 mg/dL (7-21); CALCIUM 9.7 mg/dL (8.4-10.5); GFR NON-AFRICAN AMERICAN > 60; LIPASE 253 U/L (23-300)
[2019-01-12] MEDS ORDERED: Iohexol 240 (50 ml) ONE (16:42)
[2019-01-12 16:50] LABS: URINE BILIRUBIN NEGATIVE (NEGATIVE); URINE BLOOD NEGATIVE (NEGATIVE); URINE GLUCOSE (UA) NEGATIVE (NEGATIVE); URINE LEUKOCYTE ESTERASE NEGATIVE Leu/uL (NEGATIVE); URINE PROTEIN NEGATIVE mg/dL (<30 mg/dL); URINE UROBILINOGEN 0.2 E.U./dL (<1 E.U./dL)
--- NOTE | 2019-01-12 16:54 | ED PDOC ---
Arrival/HPI - General Historian: Patient - History of Present Illness Narrative History of Present Illness (Text): 01/12/19 16:49 64-year-old female with a past medical history of hypertension, hyperlipidemia, sleep apnea, chronic abdominal pain, chronic constipation. Presenting here for a recurrent episode of abdominal pain. Patient reports that abdominal pain is located in her right lower quadrant has been on and off over the past two days, has associated constipation last bowel movement was two days ago, associated nausea without emesis. Patient reports that the pain is associated with abdominal distention, is sharp in nature. No aggravating factors are identified at this time. She reports previous episode to be approximately three weeks ago. During her previous admission, patient was told that she has gastritis, she has a follow up appointment for G.I. to undergo endoscopy coming up next week. Patient denies any melena, any blood in her stool, hematuria, dysuria, fevers, chills. Past surgical history: patient reports , foot surgery, denies any hernia repair, denies any mesh placement, denies appendectomy, denies cholecystectomy. Social history is negative. Allergies: NKDA <Mynor Calderon - Last Filed: 01/12/19 19:04> <Isaac Grigsby - Last Filed: 01/12/19 21:46> - General Chief Complaint: Abdominal Pain Time Seen by Provider: 01/12/19 14:50 Past Medical History - Provider Review Nursing Documentation Reviewed: Yes - Past History Past History: Non-Contributing - Infectious Disease Hx of Infectious Diseases: None - Tetanus Immunization Tetanus Immunization: Up to Date - Cardiac Hx Cardiac Disorders: Yes Hx Hypertension: Yes - Pulmonary Hx Respiratory Disorders: Yes Hx Asthma: Yes Hx Sleep Apnea: Yes - Neurological Hx Neurological Disorder: Yes Hx Transient Ischemic Attacks (TIA): Yes - HEENT Hx HEENT Disorder: No - Renal Hx Renal Disorder: No - Endocrine/Metabolic Hx Endocrine Disorders: No - Hematological/Oncological Hx Blood Disorders: No - Integumentary Hx Dermatological Disorder: No - Musculoskeletal/Rheumatological Hx Musculoskeletal Disorders: Yes Hx Falls: Yes - Gastrointestinal Hx Gastrointestinal Disorders: Yes - Genitourinary/Gynecological Hx Genitourinary Disorders: No - Psychiatric Hx Substance Use: No - Surgical History Hx Orthopedic Surgery: Yes (L foot) Other/Comment: cyst removal from head - Anesthesia Hx Anesthesia: Yes Hx Anesthesia Reactions: No Hx Malignant Hyperthermia: No - Suicidal Assessment Feels Threatened In Home Enviroment: No <Mynor Calderon - Last Filed: 01/12/19 19:04> Family/Social History - Physician Review Nursing Documentation Reviewed: Yes Family/Social History: Unknown Family HX Smoking Status: Never Smoked Hx Alcohol Use: No Hx Substance Use: No Hx Substance Use Treatment: No <Mynor Calderon - Last Filed: 01/12/19 19:04> Allergies/Home Meds <Mynor Calderon - Last Filed: 01/12/19 19:04> <Isaac Grigsby - Last Filed: 01/12/19 21:46> Allergies/Adverse Reactions: Allergies No Known Allergies Allergy (Verified 01/12/19 14:53) Home Medications: Home Meds Medication Instructions Recorded Confirmed RX: Gabapentin [Neurontin] 400 mg PO DAILY 11/27/18 01/12/19 Review of Systems - Review of Systems Constitutional: Normal Eyes: Normal ENT: Normal Respiratory: Normal Cardiovascular: Normal Gastrointestinal: Abdominal Pain, Constipation, Nausea, Appetite Changes. absent: Vomiting, Hematochezia, Hematemesis Genitourinary Female: Normal Musculoskeletal: Normal Skin: Normal Neurological: Normal Endocrine: Normal Hemo/Lymphatic: Normal Psychiatric: Normal <Mynor Calderon - Last Filed: 01/12/19 19:04> Physical Exam Vital Signs Reviewed: Yes Vital Signs Temp Pulse Resp BP Pulse Ox 01/12/19 15:07 98.9 F 99 H 18 135/81 97 Temperature: Afebrile Blood Pressure: Normal Pulse: Regular Respiratory Rate: Normal Appearance: Positive for: Well-Appearing, Non-Toxic, Comfortable Pain Distress: None Mental Status: Positive for: Alert and Oriented X 3 - Systems Exam Head: Present: Atraumatic, Normocephalic Pupils: Present: PERRL Extroacular Muscles: Present: EOMI Conjunctiva: Present: Normal Mouth: Present: Moist Mucous Membranes Neck: Present: Normal Range of Motion Respiratory/Chest: Present: Clear to Auscultation, Good Air Exchange. No: Resp iratory Distress, Accessory Muscle Use Cardiovascular: Present: Regular Rate and Rhythm, Normal S1, S2. No: Murmurs Abdomen: Present: Tenderness, Distention. No: Normal Bowel Sounds, Rebound, Guarding Back: Present: Normal Inspection Upper Extremity: Present: Normal Inspection. No: Cyanosis, Edema Lower Extremity: Present: Normal Inspection. No: Edema Neurological: Present: GCS=15, CN II-XII Intact, Speech Normal Skin: Present: Warm, Dry, Normal Color. No: Rashes Psychiatric: Present: Alert, Oriented x 3, Normal Insight, Normal Concentration <Mynor Calderon - Last Filed: 01/12/19 19:04> Vital Signs Temp Pulse Resp BP Pulse Ox 01/12/19 17:33 76 18 145/77 99 01/12/19 15:07 98.9 F 99 H 18 135/81 97 <Isaac Grigsby - Last Filed: 01/12/19 21:46> Medical Decision Making ED Course and Treatment: 01/12/19 17:28 Patient complaining of nausea at this time will administer Zofran CT abdomen pelvis with PO contrast pending UA pending Will keep patient NPO at this time - Lab Interpretations Lab Results: Total Bilirubin 0.5 mg/dL (0.2-1.3) 01/12/19 16:26 AST 20 U/L (14-36) 01/12/19 16:26 ALT 18 U/L (7-56) 01/12/19 16:26 Alkaline Phosphatase 79 U/L (38-126) 01/12/19 16:26 Total Protein 7.4 g/dL (5.8-8.3) 01/12/19 16:26 Albumin 4.3 g/dL (3.0-4.8) 01/12/19 16:26 Globulin 3.1 gm/dL 01/12/19 16:26 Albumin/Globulin Ratio 1.4 (1.1-1.8) 01/12/19 16:26 Lipase 253 U/L (23-300) 01/12/19 16:26 - RAD Interpretation Radiology Orders: 01/12/19 16:31 ABDOMEN & PELVIS [ABD PELVIS PO & IV CONTRAST] [CT] Stat <Mynor Calderon - Last Filed: 01/12/19 19:04> ED Course and Treatment: 01/12/19 17:42 64 year old female presents to the ED for evaluation of abdominal pain. In agreement with resident note which contains more details about the patient. Patient seen and evaluated with resident. Came up with plan and treatment [facility] er. 01/12/19 21:16 patient feels well and ready to go home. patient understands and agrees to plan to discharge and will return for any new or worsening symptoms. patient has an upcoming appointment with her regular GI. - Lab Interpretations Lab Results: Total Bilirubin 0.5 mg/dL (0.2-1.3) 01/12/19 16:26 AST 20 U/L (14-36) 01/12/19 16:26 ALT 18 U/L (7-56) 01/12/19 16:26 Alkaline Phosphatase 79 U/L (38-126) 01/12/19 16:26 Total Protein 7.4 g/dL (5.8-8.3) 01/12/19 16:26 Albumin 4.3 g/dL (3.0-4.8) 01/12/19 16:26 Globulin 3.1 gm/dL 01/12/19 16:26 Albumin/Globulin Ratio 1.4 (1.1-1.8) 01/12/19 16:26 Lipase 253 U/L (23-300) 01/12/19 16:26 Urine Color Yellow (YELLOW) 01/12/19 16:40 Urine Appearance Clear (CLEAR) 01/12/19 16:40 Urine pH 6.0 (4.7-8.0) 01/12/19 16:40 Ur Specific [place] 1.025 (1.005-1.035) 01/12/19 16:40 Urine Protein Negative mg/dL (<30 mg/dL) 01/12/19 16:40 Urine Glucose (UA) Negative mg/dL (NEGATIVE) 01/12/19 16:40 Urine Ketones Negative mg/dL (NEGATIVE) 01/12/19 16:40 Urine Blood Negative (NEGATIVE) 01/12/19 16:40 Urine Nitrate Negative (NEGATIVE) 01/12/19 16:40 Urine Bilirubin Negative (NEGATIVE) 01/12/19 16:40 Urine Urobilinogen 0.2 E.U./dL (<1 E.U./dL) 01/12/19 16:40 Ur Leukocyte Esterase Negative Peg/uL (NEGATIVE) 01/12/19 16:40 - RAD Interpretation Narrative RAD Interpretations (Text): CT Abdomen and Pelvis: LUNG BASES: The lung bases appear clear. No pleural effusions are seen. LIVER: Unremarkable. GALLBLADDER AND BILE DUCTS: The gallbladder appears within normal limits. No radioopaque gallstones are seen. No biliary ductal dilatation is evident. PANCREAS: Unremarkable. SPLEEN: Unremarkable. ADRENAL GLANDS: Unremarkable. KIDNEYS, URETERS, AND BLADDER: The kidneys appear within normal limits. There is no hydronephrosis or hydroureter. No urinary calculi are seen. The urinary bladder is normal in size and configuration. STOMACH AND BOWEL: A very small hiatal hernia is present. Unremarkable appearance of the stomach. No evidence of bowel obstruction. No evidence suggesting enteritis. Diverticulosis coli is seen within the sigmoid region with associated subtle pericolonic haziness compatible with acute diverticulitis. No pericolonic abscess formation or microperforation detected. APPENDIX: No evidence of acute appendicitis on CT examination. PERITONEUM: No free fluid. No free air. LYMPH NODES: No lymphadenopathy is evident. REPRODUCTIVE: Unremarkable as visualized. VASCULATURE: No evidence of abdominal aortic aneurysm. BONES: No aggressive appearing osseous lesion. No acute osseous pathology evident. IMPRESSION: 1. Diverticulosis coli in the sigmoid region with associated acute diverticulitis as described above. 2. A very small hiatal hernia is noted. Electronically signed on Jan 12, 2019 9:04:12 PM EST by: Mariusz De Leon M.D., EDGARD Certified By ABR & CBCCT Fellowship Trained MRI and CT Specialist Radiology Orders: 01/12/19 16:31 ABDOMEN & PELVIS [ABD PELVIS PO & IV CONTRAST] [CT] Stat Soil Surveyor: Radiologist - Medication Orders Current Medication Orders: Discontinued Medications Ondansetron HCl (Zofran Inj) 4 mg IVP STAT STA Stop: 01/12/19 16:53 Last Admin: 01/12/19 17:40 Dose: 4 mg IVP Administration Document 01/12/19 17:40 KV (Rec: 01/12/19 17:40 KV [facility] [id number]) Charges for Administration # of IVP Administrations 1 <Isaac Grigsby - Last Filed: 01/12/19 21:46> - PA / SPEECH THERAPY DIRECTOR / Resident Statement / has reviewed & agrees with the documentation as recorded. / has examined the patient and agrees with the treatment plan. <Isaac Grigsby - Last Filed: 01/12/19 21:46> Disposition/Present on Arrival - Present on Arrival Any Indicators Present on Arrival: No History of DVT/PE: No History of Uncontrolled Diabetes: No Urinary Catheter: No History of Decub. Ulcer: No History Surgical Site Infection Following: None - Disposition Have Diagnosis and Disposition been Completed?: Yes Disposition Time: 19:07 <Mynor Calderon - Last Filed: 01/12/19 19:04> - Disposition Disposition Time: 21:17 Patient Plan: Discharge <Isaac Grigsby - Last Filed: 01/12/19 21:46> - Disposition Diagnosis: Diverticulitis Disposition: HOME/ ROUTINE Condition: STABLE Discharge Instructions (ExitCare): Clear Liquid Diet, Diverticulitis Additional Instructions: follow a clear liquid diet for 3 days and then slowly advance towards your normal diet. return for any problems or concerns especially persistent vomiting, worsening pain, fever greater than 100.4. call your ornamental metal erector tomorrow for follow up planning. Prescriptions: Amoxicillin/Clavulanate [Augmentin 875 MG-125 MG] 1 tab PO TID 10 Days #30 tab RX: Ibuprofen [Motrin Tab] 600 mg PO QID #42 tab Ondansetron [Zofran] 4 mg PO Q8H #12 tab Forms: [employer] (Arabic)
[2019-01-12 17:10] LABS: URINE APPEARANCE CLEAR (CLEAR); URINE COLOR YELLOW (YELLOW)
[2019-01-12] MEDS ORDERED: Iohexol 350 MG/100 ML VIAL ONE (17:59)
[2019-01-12 21:39] VITALS: BP 128/74; PULSE 75; O2SAT 98
--- NOTE | 2019-01-13 10:55 | CT ---
Date of service: 01/12/2019 PROCEDURE: CT Abdomen and Pelvis with contrast HISTORY: pano, obstruction COMPARISON: 11/19/2018. TECHNIQUE: CT scan of the abdomen and pelvis was performed after administration of intravenous contrast. Oral contrast was administered. Coronal and sagittal reformatted images were obtained. Contrast dose: 100 mL Omnipaque 300 Radiation dose: Total exam DLP = 661.67 mGy-cm. This CT exam was performed using one or more of the following dose reduction techniques: Automated exposure control, adjustment of the mA and/or kV according to patient size, and/or use of iterative reconstruction technique. FINDINGS: LOWER THORAX: There is subsegmental atelectasis in the lingula. The lung bases are clear. LIVER: Normal in size with homogeneous enhancement. Fatty liver. No gross lesion or ductal dilatation. GALLBLADDER AND BILE DUCTS: Well distended. No calcified gallstones, wall thickening or pericholecystic fluid. PANCREAS: Normal in size with homogeneous enhancement. No gross lesion or ductal dilatation. SPLEEN: Normal in size and appearance. ADRENALS: No discrete nodule. KIDNEYS AND URETERS: Normal in size with homogeneous enhancement. No hydronephrosis. No solid mass. VASCULATURE: No aortic aneurysm. There are no aortic atherosclerotic calcifications or mural plaque present. BOWEL: The small bowel loops are normal in caliber. There is sigmoid diverticulosis and mild circumferential mural thickening in the sigmoid colon. No bowel wall thickening or obstruction. APPENDIX: Normal appendix. PERITONEUM: No free fluid. No free air. LYMPH NODES: No enlarged lymph nodes. BLADDER: Well distended and normal in appearance. REPRODUCTIVE: The uterus is normal in size. BONES: No acute fracture. Within normal limits for the patient's age. OTHER FINDINGS: There is a small sliding hiatal hernia. IMPRESSION: Sigmoid diverticulosis. Mild circumferential mural thickening in the sigmoid colon is nonspecific and could be related to underdistention however acute sigmoid diverticulitis is also a consideration. No bowel obstruction. Clinical follow-up is advised. Small sliding hiatal hernia. A preliminary report was provided by [employer].
== END 2019-01-12 21:35 | disposition home or self-care (01) ==
LOC: ED 14:37
DX: K57.32 Diverticulitis of large intestine without perforation or abscess without bleeding (principal); E78.5 Hyperlipidemia, unspecified; G47.30 Sleep apnea, unspecified; I10 Essential (primary) hypertension
CPT/HCPCS: 74177; 80053; 81003; 83690; 85025; 96374; 96375; 99285; J1885; J2405; Q9966; Q9967

== ENCOUNTER 2019-04-12 11:52 | Observation (INO) | payer MEDICARE, MEDICAID ==
[2019-04-12 11:52] VITALS: BMI 34.0
--- NOTE | 2019-04-12 12:09 | ED PDOC ---
Arrival/HPI - General Chief Complaint: Dizziness/Lightheaded Time Seen by Provider: 04/12/19 11:59 Historian: Patient - History of Present Illness Narrative History of Present Illness (Text): 04/12/19 12:08 64-year-old female with a history of hypertension, sleep apnea, vertigo in the past presents today with a one-week history of left-sided headache and dizziness. Patient states she is feeling off balance. Patient states symptoms started about 1 week ago. Patient states she has been unable to sleep Due to issues with her CPAP machine. Patient states she has been taking Tylenol for headache without improvement. Patient describes the headache as a sharp throbbing pain located over the left eyebrow. Patient states she has a history of headaches in the past. Patient states at times her headache will resolve with Tylenol. Patient states that headache has been constant for about 1 week. Patient states when she closes her eyes she feels like the room is spinning but when she has her eyes open she feels as if she is unable to ambulate. Past Medical History - Provider Review Nursing Documentation Reviewed: Yes Primary Care Provider: Gokul Olson - Travel History Have you recently traveled outside [place] w/in the past 3 mons?: No - Past History Past History: Non-Contributing - Infectious Disease Hx of Infectious Diseases: None - Tetanus Immunization Tetanus Immunization: Up to Date - Cardiac Hx Cardiac Disorders: Yes Hx Hypertension: Yes - Pulmonary Hx Respiratory Disorders: Yes Hx Asthma: Yes Hx Sleep Apnea: Yes - Neurological Hx Neurological Disorder: Yes Hx Transient Ischemic Attacks (TIA): Yes - HEENT Hx HEENT Disorder: No - Renal Hx Renal Disorder: No - Endocrine/Metabolic Hx Endocrine Disorders: No - Hematological/Oncological Hx Blood Disorders: No - Integumentary Hx Dermatological Disorder: No - Musculoskeletal/Rheumatological Hx Musculoskeletal Disorders: Yes Hx Falls: Yes - Gastrointestinal Hx Gastrointestinal Disorders: Yes - Genitourinary/Gynecological Hx Genitourinary Disorders: No - Psychiatric Hx Depression: No Hx Substance Use: No - Surgical History Hx Orthopedic Surgery: Yes (L foot) Other/Comment: cyst removal from head - Anesthesia Hx Anesthesia: Yes Hx Anesthesia Reactions: No Hx Malignant Hyperthermia: No - Suicidal Assessment Feels Threatened In Home Enviroment: No Family/Social History - Physician Review Nursing Documentation Reviewed: Yes Family/Social History: Unknown Family HX Smoking Status: Never Smoked Hx Alcohol Use: No Hx Substance Use: No Hx Substance Use Treatment: No Allergies/Home Meds Allergies/Adverse Reactions: Allergies No Known Allergies Allergy (Verified 01/12/19 14:53) Home Medications: Home Meds Medication Instructions Recorded Confirmed Gabapentin [Neurontin] 400 mg PO DAILY 11/27/18 01/12/19 Review of Systems - Review of Systems Constitutional: absent: Fatigue, Fevers Eyes: absent: Vision Changes, Photophobia, Eye Pain ENT: Sinus Congestion. absent: Sore Throat Respiratory: absent: SOB, Cough Cardiovascular: absent: Chest Pain, Palpitations Gastrointestinal: absent: Abdominal Pain, Constipation, Diarrhea, Nausea, Vomiting Genitourinary Female: absent: Dysuria, Frequency Musculoskeletal: absent: Arthralgias, Back Pain, Neck Pain Skin: absent: Rash Neurological: Headache, Dizziness. absent: Speech Changes, Facial Droop Psychiatric: absent: Anxiety, Depression Physical Exam Vital Signs Reviewed: Yes Vital Signs Temp Pulse Resp BP Pulse Ox 04/12/19 11:52 98.5 F 80 18 183/77 H 97 Temperature: Afebrile Blood Pressure: Hypertensive Pulse: Regular Respiratory Rate: Normal Appearance: Positive for: Well-Appearing, Non-Toxic, Comfortable Pain Distress: None Mental Status: Positive for: Alert and Oriented X 3 - Systems Exam Head: Present: Atraumatic, Tenderness (+ minimal tenderness over left frontal forehead.) Pupils: Present: PERRL Extroacular Muscles: Present: EOMI Conjunctiva: Present: Normal Ears: Present: Normal, NORMAL TM Mouth: Present: Moist Mucous Membranes Pharnyx: Present: Normal Nose (External): Present: Atraumatic Nose (Internal): Present: Normal Inspection Neck: Present: Normal Range of Motion, Trachea Midline Respiratory/Chest: Present: Clear to Auscultation, Good Air Exchange. No: Respiratory Distress, Accessory Muscle Use Cardiovascular: Present: Regular Rate and Rhythm, Normal S1, S2. No: Murmurs Abdomen: No: Tenderness, Distention, Rebound, Guarding Back: Present: Normal Inspection Upper Extremity: Present: Normal ROM, Neurovascularly Intact Lower Extremity: Present: Normal ROM, Neurovascularly Intact Neurological: Present: GCS=15, Speech Normal, Motor Func Grossly Intact, Normal Sensory Function Skin: Present: Warm, Dry, Normal Color. No: Rashes Psychiatric: Present: Alert, Oriented x 3 Medical Decision Making ED Course and Treatment: 04/12/19 12:13 64yr old female with headache and dizziness x 1 week. cbc; wnl cmp; wnl trop; wnl EKG normal sinus rhythm at 70 bpm normal axis normal intervals no ST elevations head CT; FINDINGS: HEMORRHAGE: No intracranial hemorrhage. BRAIN: There are mild chronic microangiopathic changes. There is no mass, mass effect or abnormal extra-axial fluid collection. There is no territorial infarction. 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 VENTRICLES: The ventricles are normal in size, shape and configuration. CALVARIUM: There is no calvarial fracture or extracranial soft tissue swelling. PARANASAL SINUSES: Predominantly clear. MASTOID AIR CELLS: Predominantly clear. OTHER FINDINGS: There is a 10 x 9 mm well-circumscribed round partially calcified soft tissue lesion in the right frontal scalp likely a complicated sebaceous cyst. IMPRESSION: No acute intracranial abnormality. If there is a persistent focal neurologic deficit and an ongoing clinical concern for acute infarction, an MRI of the brain without intravenous contrast would be a more sensitive modality for evaluation of hyperacute/acute ischemic infarction. pt given Meclizine and tylenol. pt reassessment; pt with continued dizziness and left sided headache. 04/12/19 13:[address] torres; accepts admission remote tele Obs. for dizziness, headache.. consult dr. Christy and dr. Julian . all results discussed with patient in depth impression; dizziness, headache, near syncope admit remote tele obs. 04/12/19 14:08 - RAD Interpretation Radiology Orders: 04/12/19 12:05 HEAD W/O CONTRAST [CT] Stat CHEST PORTABLE [RAD] Stat Disposition/Present on Arrival - Present on Arrival Any Indicators Present on Arrival: No History of DVT/PE: No History of Uncontrolled Diabetes: No Urinary Catheter: No History of Decub. Ulcer: No History Surgical Site Infection Following: None - Disposition Have Diagnosis and Disposition been Completed?: Yes Diagnosis: Headache, Dizziness, Near syncope Disposition: HOSPITALIZED Disposition Time: 14:00 Patient Plan: Observation Patient Problems: Current Active Problems Problem Status Onset Dizziness Acute Headache Acute Near syncope Acute Condition: FAIR Forms: [employer] (Bengali)
[2019-04-12 12:50] LABS: BASO # 0.01 K/mm3 (0.0-2.0); BASO % 0.1 % (0.0-3.0); EOS # 0.1 (0.0-0.7); EOS % 1.5 % (1.5-5.0); HEMOGLOBIN 14.6 g/dL (12.0-16.0); LYMPH # 2.3 (1.2-3.4); LYMPH % 34.9 % (22.0-35.0); MEAN CELL VOLUME 92.8 fl (80.0-105.0); MEAN CORPUSCULAR HEMOGLOBIN 30.9 pg (25.0-35.0); MEAN CORPUSCULAR HGB CONC 33.3 g/dl (31.0-37.0); MEAN PLATELET VOLUME 10.8 fl (7.0-11.0); MONO # 0.5 (0.1-0.6); RBC 4.72 10^6/uL (3.5-6.1); RED CELL DISTRIBUTION WIDTH 12.5 % (11.5-14.5); WHITE BLOOD COUNT 6.7 10^3/uL (4.5-11.0)
[2019-04-12 13:00] LABS: ALB/GLOB RATIO 1.3 (1.1-1.8); ALBUMIN 3.6 g/dL (3.0-4.8); ALT/SGPT 10 U/L (7-56); AST/SGOT 20 U/L (14-36); BLOOD UREA NITROGEN 13 mg/dL (7-21); CALCIUM 9.1 mg/dL (8.4-10.5); GFR NON-AFRICAN AMERICAN > 60
[2019-04-12 13:12] LABS: TROPONIN I < 0.01 ng/mL
--- NOTE | 2019-04-12 13:40 | CT ---
Date of service: 04/12/2019 PROCEDURE: CT HEAD WITHOUT CONTRAST. HISTORY: Headache/dizziness x 1 week COMPARISON: 05/27/2012. TECHNIQUE: Axial computed tomography images were obtained through the head/brain without intravenous contrast. Radiation dose: Total exam DLP = 730.91 mGy-cm. This CT exam was performed using one or more of the following dose reduction techniques: Automated exposure control, adjustment of the mA and/or kV according to patient size, and/or use of iterative reconstruction technique. FINDINGS: HEMORRHAGE: No intracranial hemorrhage. BRAIN: There are mild chronic microangiopathic changes. There is no mass, mass effect or abnormal extra-axial fluid collection. There is no territorial infarction. 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 VENTRICLES: The ventricles are normal in size, shape and configuration. CALVARIUM: There is no calvarial fracture or extracranial soft tissue swelling. PARANASAL SINUSES: Predominantly clear. MASTOID AIR CELLS: Predominantly clear. OTHER FINDINGS: There is a 10 x 9 mm well-circumscribed round partially calcified soft tissue lesion in the right frontal scalp likely a complicated sebaceous cyst. IMPRESSION: No acute intracranial abnormality. If there is a persistent focal neurologic deficit and an ongoing clinical concern for acute infarction, an MRI of the brain without intravenous contrast would be a more sensitive modality for evaluation of hyperacute/acute ischemic infarction.
--- NOTE | 2019-04-12 13:40 | RAD ---
Date of service: 04/12/2019 HISTORY: dizziness COMPARISON: 11/27/2018 FINDINGS: LUNGS: The lungs are well inflated and clear. PLEURA: No pleural effusions or pneumothorax. CARDIOVASCULAR: The heart is normal in size. No aortic atherosclerotic calcifications present. OSSEOUS STRUCTURES: Again seen is mild dextroscoliosis in the thoracic spine. VISUALIZED UPPER ABDOMEN: Normal. OTHER FINDINGS: None. IMPRESSION: No active pulmonary disease.
--- NOTE | 2019-04-12 19:34 | CARD ---
APPROVED REPORT Date of service: 04/12/2019 EKG Measurement Heart [id number] <Conclusion> Normal sinus rhythm Normal ECG
[2019-04-12] MEDS ORDERED: Pneumococcal 23-Valent Vaccine IM ONE (20:07)
--- NOTE | 2019-04-13 00:02 | CON ---
DATE: 04/12/2019 REASON FOR CONSULTATION: For a followup cardiac evaluation, admitted with headaches, history of hypertension, history of hyperlipidemia. BRIEF CLINICAL HISTORY: This is a 64-year-old female with past medical history significant for hypertension, hyperlipidemia, complained of severe headache and with dizziness and feels that everything is spinning around. Denies any chest pain. Denies any shortness of breath. Denies any palpitations. Patient was seen by us on 11/27/2018 when she was admitted with epigastric pain and was scheduled on 12/28/2018 for a stress test, but patient did not show up. PAST MEDICAL HISTORY: Significant for hypertension, hyperlipidemia, neuropathy, TIA, asthma, arthritis, gastroesophageal reflux, migraine, epilepsy during childhood, bronchitis. PAST SURGICAL HISTORY: Significant for left foot surgery. SOCIAL HISTORY: An ex-smoker. Denies any history of alcohol abuse. CURRENT MEDICATIONS: At home, patient was taking amlodipine 10 mg daily, Zofran 4 mg daily, ibuprofen 600 mg daily, Neurontin 400 mg daily, atorvastatin 40 mg daily, amoxicillin and Augmentin one tablet p.o. t.i.d. PREVIOUS CARDIAC WORKUP: As follows; patient had echocardiography done on 11/28/2018 that shows ejection fraction 65%, trace mitral regurgitation, mild tricuspid regurgitation, RV systolic pressure 44. Patient was scheduled for a stress test on 12/28/2018, but patient did not show up. REVIEW OF SYSTEMS: As per HPI. PHYSICAL EXAMINATION: GENERAL: Height of the patient 5 feet 1 inch, weight of the patient 180 pounds, body mass index 34 kg/m2. VITAL SIGNS: Temperature afebrile, heart rate 70, blood pressure 135/75. HEENT: PERRLA. Extraocular muscles intact. NECK: Supple. No carotid bruits or thyromegaly. CHEST: Clear to auscultation. HEART: S1 and S2 regular. ABDOMEN: Soft. EXTREMITIES: Clubbing and cyanosis negative. LABORATORY DATA: Blood workup as follows; WBC 6.7, hemoglobin 14.7, hematocrit 43.8, and platelet count 251. Chemistry shows sodium 140, potassium 4, chloride 104, carbon dioxide 28, anion gap of 12, BUN 13, and creatinine 0.5. Troponin is 0.01. EKG showed normal sinus and heart rate of 70. IMPRESSION AND PLAN: A 64-year-old female with a past medical history significant for obesity, transient ischemic attack admitted with headache. Past history is significant for migraine, childhood epilepsy, history of neuropathy, asthma, and hypertension. Patient was scheduled for a stress test as outpatient on 12/28/2017, but did not show up. Echocardiogram shows essentially normal ejection fraction, trace mitral regurgitation, [id number] tricuspid regurgitation, admitted with migraine. In view of her multiple risk factors, suggest a stress test when the patient's headache improves. Patient has a headache and as such cannot tolerate the stress test now. So we will schedule her on Friday if the patient remains. Otherwise, we will schedule as outpatient. In between, we will get lipid profile, TSH, and hemoglobin A1c. We will resume back the amlodipine and Norvasc. Further recommendations will depend on the hospital course. Patient denies any loss of consciousness. Denies any palpitations or chest pain. Though patient does not have any complaint of chest pain, on the previous admission also, patient was ruled out for myocardial infarction, but given the multiple risk factors for coronary artery disease, we will schedule a stress test as an outpatient or if she stays on, on Friday. We will follow with you. Thank you Dr. Meyer, for providing us the opportunity in taking care of the patient, Adriel Dukes. Conner Ojeda MD
[2019-04-13 07:04] LABS: BASO # 0.01 K/mm3 (0.0-2.0); BASO % 0.2 % (0.0-3.0); EOS # 0.1 (0.0-0.7); EOS % 1.8 % (1.5-5.0); HEMOGLOBIN 13.4 g/dL (12.0-16.0); LYMPH # 2.5 (1.2-3.4); LYMPH % 44.3 % (22.0-35.0); MEAN CELL VOLUME 93.2 fl (80.0-105.0); MEAN CORPUSCULAR HEMOGLOBIN 30.2 pg (25.0-35.0); MEAN CORPUSCULAR HGB CONC 32.4 g/dl (31.0-37.0); MONO # 0.4 (0.1-0.6); MONO % 7.3 % (1.0-6.0); RBC 4.44 10^6/uL (3.5-6.1); RED CELL DISTRIBUTION WIDTH 12.6 % (11.5-14.5); WHITE BLOOD COUNT 5.6 10^3/uL (4.5-11.0)
[2019-04-13 07:14] LABS: ALB/GLOB RATIO 1.4 (1.1-1.8); ALBUMIN 3.5 g/dL (3.0-4.8); ALT/SGPT 15 U/L (7-56); AST/SGOT 19 U/L (14-36); BLOOD UREA NITROGEN 15 mg/dL (7-21); GFR NON-AFRICAN AMERICAN > 60; HDL CHOLESTEROL 52 mg/dL (29-60)
[2019-04-13 07:18] LABS: LDL CHOLESTEROL 90 mg/dL (0-129)
--- NOTE | 2019-04-13 08:03 | CP.PCM.PN ---
Subjective - Date & Time of Evaluation Date of Evaluation: 04/13/19 Time of Evaluation: 06:35 - Subjective Subjective: Awake, no distress, feels okay Reason for consultation and follow up:Cardiac evaluation of dizziness, history of hypertension and hyperlipidemia Seen and examined by me and Dr. Ojeda Objective - Vital Signs/Intake and Output Vital Signs (last 24 hours): Temp Pulse Resp BP Pulse Ox 98.5 F 65 18 164/97 H 99 04/12/19 11:52 04/13/19 06:00 04/12/19 19:48 04/12/19 23:17 04/12/19 14:45 Intake and Output: 04/13/19 04/13/19 06:59 18:59 Intake Total 120 Balance 120 - Medications Medications: Current Medications Acetaminophen (Tylenol 325mg Tab) 650 mg PO Q4H PRN PRN Reason: Pain, moderate (4-7) Last Admin: 04/12/19 23:16 Dose: 650 mg Amlodipine Besylate (Norvasc) 10 mg PO DAILY [facility] Atorvastatin Calcium (Lipitor) 40 mg PO DIN [facility] Last Admin: 04/12/19 18:28 Dose: 40 mg Gabapentin (Neurontin) 400 mg PO DAILY [facility]; Protocol Hydralazine HCl (Apresoline) 10 mg PO QID PRN PRN Reason: for sbp >160 Last Admin: 04/12/19 23:17 Dose: 10 mg Ondansetron HCl (Zofran Inj) 4 mg IVP Q8H PRN PRN Reason: Nausea/Vomiting Last Admin: 04/13/19 01:44 Dose: 4 mg - Labs Labs: 04/13/19 06:15 04/13/19 06:15 - Constitutional Appears: Non-toxic, No Acute Distress - Head Exam Head Exam: NORMAL INSPECTION, NORMOCEPHALIC - Eye Exam Eye Exam: Normal appearance Pupil Exam: NORMAL ACCOMODATION - ENT Exam ENT Exam: Mucous Membranes Moist, Normal Exam - Respiratory Exam Respiratory Exam: Decreased Breath Sounds, Clear to Ausculation Bilateral, NORMAL BREATHING PATTERN - Cardiovascular Exam Cardiovascular Exam: REGULAR RHYTHM, +S1, +S2 - GI/Abdominal Exam GI & Abdominal Exam: Soft, Normal Bowel Sounds - Extremities Exam Extremities Exam: Full ROM, Normal Capillary Refill - Neurological Exam Neurological Exam: Alert, Awake, Oriented x3 - Psychiatric Exam Psychiatric exam: Normal Affect, Normal Mood - Skin Skin Exam: Dry, Normal Color, Warm Assessment and Plan - Assessment and Plan (Free Text) Assessment: A 64 year old obese female who came in to the ER due to headache and dizziness.History of hypertension, hyperlipidemia, former smoker, left foot surgery, neuropathy, TIA, asthma,bronchitis, arthritis, GERD, migraine, epilepsy during childhood. Evaluated last October 2018 when she was admitted due to abdominal pain and stress test was recommended and scheduled on December but she did not show up for the test. Echo done on 11/28/18 showed LVEF 65%, trace MR,mild TR, RVSP 44 mmHg. Will schedule for stress test . Plan: Headache, PRN tylenol given Denies dizziness or nausea Feels okay Heart rate stable Blood pressure stable On Norvasc 10 mg daily,Lipitor 10 mg daily, PRN Hydralazine Continue current treatment and management For stress test Will follow up Plan and treatment discussed with Dr. Ojeda
[2019-04-13] MEDS: Amoxicillin-Clav 875-125 mg Tab PO SCH (21:36)
[2019-04-13] MEDS: MethylPREDNISolone 40 mg Vial IVP SCH (21:36)
[2019-04-13] MEDS ORDERED: POLYETHYLENE GLYCOL 3350 17 GM/Dose PACKET PO STA (22:08)
--- NOTE | 2019-04-13 22:09 | HP ---
DATE OF EXAM: 04/13/2019 The patient was seen and examined at the bedside on 04/13/2019. CHIEF COMPLAINTS: Dizziness and lightheadedness. HISTORY OF PRESENT ILLNESS: Ms. Adriel Dukes is a 64-year-old female with past medical history of hypertension, sleep apnea syndrome, vertigo in the past. The patient states that she was feeling off the balance and the patient says the symptoms started about 1 week ago and now unable to sleep due to issues with her CPAP machine. The patient states that she has been taking Tylenol for headache without improvement. Headache is like a sharp throbbing pain locating over the left eyebrow. History of headache in the past. Per that time headache resolved with Tylenol, but not this time. The headache is constant for about 1 week. She closes her eyes and she feels like the room is filling, but when she has her eyes open she feels she is unable to ambulate. We admitted the patient, did CAT scan of the head, chest x-rays, seen by career consultant Dr. Conner Ojeda. Neurology consult called. PAST MEDICAL HISTORY: Hypertension, asthma, sleep apnea, TIA, and orthopedic surgery. FAMILY HISTORY: Father and mother noncontributory. HABITS: Never smoked. No drugs. No ethanol. ALLERGIES: THE PATIENT IS NOT ALLERGIC WITH ANY MEDICATION. HOME MEDICATIONS: Gabapentin. REVIEW OF SYSTEMS: The patient was seen and examined at bedside, looking comfortable. No fever. No chills. No hematuria. No hematochezia. No headache. No dizziness. No chest pain. No palpitations. PHYSICAL EXAMINATION VITAL SIGNS: Temperature 97.9, pulse 64, blood pressure 150/75, respiratory rate 18. HEENT: Head; normocephalic and atraumatic. Eyes; PERRLA. Extraocular muscles intact. Conjunctiva clear. Nose patent. Mucous membranes moist. NECK: Supple. No carotid bruits. No JVD. No thyromegaly. CHEST: Bilaterally symmetrical. HEART: S1 and S2 positive. LUNGS: Clear to auscultation. ABDOMEN: Soft. Bowel sounds present. No organomegaly. EXTREMITIES: No edema. No cyanosis. NEUROLOGICAL: The patient awake and alert, moving all four extremities. No focal deficits. LABORATORY DATA: White blood cell is 5.6, hemoglobin 13.4, hematocrit 41.4, platelets 249. Sodium 140, potassium 4.4, BUN 15, creatinine 0.5, glucose 114, hemoglobin A1c 6.1. ASSESSMENT AND PLAN: Ms. Adriel Dukes is a 64-year-old female with hyperglycemia, hemoglobin A1c 6.1, came with headache, dizziness. The dizziness is a little bit less. Tomorrow going for a stress test. The patient is with hyperglycemia, neuropathy, transient ischemic attack, asthma, arthritis, gastroesophageal reflux disease, migraine, epilepsy during childhood, and bronchitis. Neurology consult called. Risk Control Specialist saw the patient. We started home medications. Repeat labs. We will follow up. Shauna Meyer MD
--- NOTE | 2019-04-14 00:38 | CON ---
DATE: 04/13/2019 REFERRING PHYSICIAN: Dr. Meyer. REASON FOR CONSULTATION: Sleep apnea syndrome, bronchitis, sinusitis. HISTORY OF PRESENT ILLNESS This is a 64-year-old female, with past medical history significant for hypertension, sleep apnea syndrome, chronic rhinitis, headache. No nausea, vomiting, diarrhea, leg pain, or leg swelling. PAST MEDICAL HISTORY: Hypertension, sleep apnea syndrome, chronic obstructive lung disease, history of TIAs, gastroesophageal reflux disease. FAMILY HISTORY: No significant cardiopulmonary disease reported. SOCIAL HISTORY: No history of smoking or alcohol use. ALLERGIES: NONE KNOWN. MEDICATIONS: She had been on gabapentin as an outpatient, presently on hydralazine 10 mg q.i.d. p.r.n., Lipitor 40 mg daily, Norvasc 10 mg daily, Tylenol p.r.n., Zofran 4 mg every 8 hours p.r.n. REVIEW OF SYSTEMS: Has headache, rhinitis, cough, shortness of breath. No chest pain, no nausea, vomiting, or diarrhea, no leg pain or leg swelling. PHYSICAL EXAMINATION: GENERAL: No acute distress. VITAL SIGNS: Temperature is 98, heart rate is 84, respiratory rate is 20, blood pressure 109/59, pulse ox 95% on oral nasal cannula. HEENT: Moist mucous membranes. Crowded airway. Mallampati score is 4. NECK: Supple. No JVD. Has had bilateral maxillary area tenderness. LUNGS: Have a prolonged expiratory phase with few rhonchi. HEART: S1, S2. ABDOMEN: Soft, nontender, no organomegaly. EXTREMITIES: There is no edema. NEUROLOGIC: Awake, alert, and follows simple commands. LABORATORY DATA: Shows hemoglobin 13.4, hematocrit 41.4, WBC 5.6, platelets are 249. Sodium 140, potassium 4.4, chloride 105, bicarbonate 32, BUN 15, creatinine 0.5, glucose 114, hemoglobin A1c 6.1, calcium 9, phosphorus 4.3, magnesium 1.9, total bili 0.3, AST 19, ALT 15, alk phos is 57. Albumin is 3.5. Cholesterol is 160. TSH is 4.43. An EKG done on admission shows a normal sinus rhythm. CAT scan of the head was done in the ER, shows no acute intracranial abnormality. There is a persistent focal neurological deficit. MRI can be obtained. Chest x-ray done in the ER shows no infiltrate or effusion. IMPRESSION AND PLAN: Sleep apnea syndrome, sinusitis, obstructive lung disease, hypertension. Agree with the present management. We will add Solu-Medrol 20 mg every 12 hours, may add Augmentin 875 twice a day, Flonase once to each nostril twice a day, Singulair [address] We will place her on CPAP 8 cm with 40% oxygen while sleeping, Protonix 40 mg daily, DVT prophylaxis. We will probably need to repeat these studies to qualify her for new supplies, need PFTs upon discharge as outpatient. Thank you and we will follow with you. Conner Ramachandran MD
[2019-04-14 06:20] LABS: HEMOGLOBIN 13.7 g/dL (12.0-16.0); MEAN CELL VOLUME 92.9 fl (80.0-105.0); MEAN CORPUSCULAR HEMOGLOBIN 30.4 pg (25.0-35.0); MEAN CORPUSCULAR HGB CONC 32.7 g/dl (31.0-37.0); MEAN PLATELET VOLUME 10.8 fl (7.0-11.0); RBC 4.51 10^6/uL (3.5-6.1); RED CELL DISTRIBUTION WIDTH 12.6 % (11.5-14.5)
[2019-04-14 06:46] LABS: TOTAL IRON BINDING CAPACITY 323 ug/dL (265-497)
[2019-04-14 06:50] LABS: LDL CHOLESTEROL 93 mg/dL (0-129)
[2019-04-14 06:56] LABS: % IRON SATURATION 18 % (20-55); IRON 57 ug/dL (45-180)
[2019-04-14 06:58] LABS: BLOOD UREA NITROGEN 11 mg/dL (7-21); GFR NON-AFRICAN AMERICAN > 60; HDL CHOLESTEROL 57 mg/dL (29-60); LIPASE 40 U/L (23-300)
--- NOTE | 2019-04-14 07:02 | CP.PCM.PN ---
Subjective - Date & Time of Evaluation Date of Evaluation: 04/14/19 Time of Evaluation: 06:40 - Subjective Subjective: Awake, no distress, denies dizziness Reason for consultation and follow up:Cardiac evaluation of dizziness, history of hypertension and hyperlipidemia Seen and examined by me and Dr. Ojeda Objective - Vital Signs/Intake and Output Vital Signs (last 24 hours): Temp Pulse Resp BP Pulse Ox 98.3 F 66 19 147/81 97 04/13/19 22:50 04/14/19 05:51 04/13/19 22:50 04/13/19 22:50 04/13/19 22:50 - Medications Medications: Current Medications Acetaminophen (Tylenol 325mg Tab) 650 mg PO Q4H PRN PRN Reason: Pain, moderate (4-7) Last Admin: 04/13/19 21:35 Dose: 650 mg Amlodipine Besylate (Norvasc) 10 mg PO DAILY [facility] Last Admin: 04/13/19 09:26 Dose: 10 mg Amoxicillin/Clavulanate Potassium (Augmentin 875 Mg-125 Mg Tab) 1 tab PO Q12 [facility]; Protocol Last Admin: 04/13/19 21:36 Dose: 1 tab Atorvastatin Calcium (Lipitor) 40 mg PO DIN [facility] Last Admin: 04/13/19 17:37 Dose: 40 mg Fluticasone Propionate (Flonase) 1 actuation NS DAILY [facility] Gabapentin (Neurontin) 400 mg PO DAILY [facility]; Protocol Last Admin: 04/13/19 09:25 Dose: 400 mg Hydralazine HCl (Apresoline) 10 mg PO QID PRN PRN Reason: for sbp >160 Last Admin: 04/12/19 23:17 Dose: 10 mg Methylprednisolone (Solu-Medrol) 20 mg IVP Q12 [facility] Last Admin: 04/13/19 21:36 Dose: 20 mg Montelukast Sodium (Singulair) 10 mg PO HS [facility] Last Admin: 04/13/19 21:35 Dose: 10 mg Ondansetron HCl (Zofran Inj) 4 mg IVP Q8H PRN PRN Reason: Nausea/Vomiting Last Admin: 04/13/19 01:44 Dose: 4 mg Polyethylene Glycol (Miralax) 17 gm PO DAILY [facility] - Labs Labs: 04/14/19 05:30 04/14/19 05:30 - Constitutional Appears: Non-toxic, No Acute Distress - Head Exam Head Exam: NORMAL INSPECTION, NORMOCEPHALIC - Eye Exam Eye Exam: Normal appearance Pupil Exam: NORMAL ACCOMODATION - ENT Exam ENT Exam: Mucous Membranes Moist, Normal Exam - Neck Exam Neck Exam: Full ROM, Normal Inspection - Respiratory Exam Respiratory Exam: Decreased Breath Sounds, Clear to Ausculation Bilateral, NORMAL BREATHING PATTERN - Cardiovascular Exam Cardiovascular Exam: REGULAR RHYTHM, +S1, +S2 - GI/Abdominal Exam GI & Abdominal Exam: Soft, Normal Bowel Sounds - Extremities Exam Extremities Exam: Full ROM, Normal Capillary Refill - Neurological Exam Neurological Exam: Alert, Awake, Oriented x3 - Psychiatric Exam Psychiatric exam: Normal Affect, Normal Mood - Skin Skin Exam: Dry, Normal Color, Warm Assessment and Plan - Assessment and Plan (Free Text) Assessment: A 64 year old obese female who came in to the ER due to headache and dizziness.History of hypertension, hyperlipidemia, former smoker, left foot surgery, neuropathy, TIA, asthma,bronchitis, arthritis, sleep apnea syndrome, vertigo, GERD, migraine, epilepsy during childhood. Evaluated last October 2018 when she was admitted due to abdominal pain and stress test was recommended and scheduled on December but she did not show up for the test. Echo done on 11/28/18 showed LVEF 65%, trace MR,mild TR, RVSP 44 mmHg. For stress test to day. NPO post midnight. Cardiac status stable. Pulmonary on consult. Neuro on consult. Plan: Feels okay today, no distress,no dizziness For stress test today NPO post midnight Heart rate stable Blood pressure stable Cardiac status stable On Norvasc 10 mg daily,Lipitor 10 mg daily, PRN Hydralazine Continue current treatment and management Pulmonary on consult Further recommendation after stress test Will follow up Plan and treatment discussed with Dr. Ojeda
[2019-04-14] MEDS: MethylPREDNISolone 40 mg Vial IVP SCH ×2 (09:00→21:33)
[2019-04-14 11:28] LABS: FOLATE 13.9 ng/mL
[2019-04-14] MEDS ORDERED: Aminophylline 25 mg/ml Inj ONE (12:04)
[2019-04-14] MEDS: Amoxicillin-Clav 875-125 mg Tab PO SCH ×2 (15:35→21:33)
[2019-04-14] MEDS: POLYETHYLENE GLYCOL 3350 17 GM/Dose PACKET PO SCH (15:35)
[2019-04-14] MEDS: Fluticasone Nasal 50 mcg/Spray NS SCH (17:07)
--- NOTE | 2019-04-14 17:17 | PN ---
DATE: 04/14/2019 PULMONARY PROGRESS NOTE REFERRING PHYSICIAN: Dr. Meyer. SUBJECTIVE: The patient is seen sitting in wheelchair status post stress test. Reports feeling well today. Used CPAP machine last night. States that she feels less tired today. No headache, rhinitis, cough, shortness of breath, chest pain, abdominal pain, nausea, vomiting, diarrhea, leg pain, leg swelling reported. OBJECTIVE: GENERAL: No acute distress. VITAL SIGNS: Blood pressure 129/80, pulse 67, temperature 97.6, oxygen saturation 99% on room air. HEENT: Moist mucous membranes. Mallampati score 4. Crowded airways. NECK: Supple. No JVD. LUNGS: Few scattered rhonchi. CARDIOVASCULAR: S1, S2. ABDOMEN: Soft, nontender. No distention. No organomegaly. EXTREMITIES: No bilateral lower extremity edema. NEUROLOGICAL: Awake, alert and verbal. Following commands. MEDICATIONS: Reviewed. Tylenol 650 every 4 hours p.r.n. moderate pain, Norvasc 10 mg daily, Augmentin 1 tab every 12 hours, Lipitor 40 mg with dinner, Flonase nasal spray daily, Neurontin 400 mg daily, hydralazine 10 mg 4 times a day p.r.n. for systolic blood pressure greater than 150, Solu-Medrol 40 mg every 12 hours, Singulair 10 mg at bedtime, Zofran 4 mg IV push every 8 hours p.r.n. nausea and vomiting, MiraLax 17 g daily. LABORATORY DATA: Reviewed. WBC 5, RBC 4.51, hemoglobin 13.7, hematocrit 41.9, and platelet count 251. Sodium 138, potassium 4.4, chloride 103, carbon dioxide 27, anion gap 12, BUN 11, and creatinine 0.4, GFR greater than 60. Random glucose 184, hemoglobin A1c 6.2, calcium 9, iron 57, TIBC 323, percent saturation 18. Triglycerides 76, cholesterol 169, LDL cholesterol 93, HDL cholesterol 57, lipase 40, vitamin B12 of 491, folate 13.9, TSH 0.85. Stress test report pending. IMPRESSION AND PLAN: Sleep apnea syndrome, sinusitis, obstructive lung disease, hypertension. Continue antibiotic therapy. Continue current steroid dosing, Flonase nasal spray, leukotriene inhibitors. Continue continuous positive airway pressure use at bedtime, sleep apnea precautions. Head of bed elevated 45 degrees, gastric prophylaxis, deep venous thrombosis prophylaxis. May need new sleep study as outpatient to evaluate sleep apnea syndrome. Recommend full pulmonary function test as outpatient to evaluate extent of obstructive lung disease. The patient was seen and examined with Dr. Ramachandran. Discussed assessment and plan as described above. The patient was seen and examined by Zahra Rock, nurse practitioner. Discussed assessment and plan as described above. Thank you for this consult. We will follow with you. Zahra Rock APN Conner Ramachandran MD
--- NOTE | 2019-04-15 06:39 | CP.PCM.PN ---
Subjective - Date & Time of Evaluation Date of Evaluation: 04/15/19 Time of Evaluation: 06:30 - Subjective Subjective: Lying in bed, no distress, Reason for consultation and follow up:Cardiac evaluation of dizziness, history of hypertension and hyperlipidemia Seen and examined by me and Dr. Ojeda Objective - Vital Signs/Intake and Output Vital Signs (last 24 hours): Temp Pulse Resp BP Pulse Ox 98.1 F 64 19 118/73 99 04/15/19 00:01 04/15/19 06:00 04/15/19 00:01 04/15/19 00:01 04/15/19 00:01 Intake and Output: 04/14/19 04/15/19 18:59 06:59 Intake Total 120 840 Balance 120 840 - Medications Medications: Current Medications Acetaminophen (Tylenol 325mg Tab) 650 mg PO Q4H PRN PRN Reason: Pain, moderate (4-7) Last Admin: 04/15/19 03:11 Dose: 650 mg Amlodipine Besylate (Norvasc) 10 mg PO DAILY [facility] Last Admin: 04/14/19 09:00 Dose: 10 mg Amoxicillin/Clavulanate Potassium (Augmentin 875 Mg-125 Mg Tab) 1 tab PO Q12 [facility]; Protocol Last Admin: 04/14/19 21:33 Dose: 1 tab Atorvastatin Calcium (Lipitor) 40 mg PO DIN [facility] Last Admin: 04/14/19 17:07 Dose: 40 mg Fluticasone Propionate (Flonase) 1 actuation NS DAILY [facility] Last Admin: 04/14/19 17:07 Dose: 1 spr Gabapentin (Neurontin) 400 mg PO DAILY [facility]; Protocol Last Admin: 04/14/19 17:07 Dose: 400 mg Hydralazine HCl (Apresoline) 10 mg PO QID PRN PRN Reason: for sbp >160 Last Admin: 04/12/19 23:17 Dose: 10 mg Methylprednisolone (Solu-Medrol) 20 mg IVP Q12 [facility] Last Admin: 04/14/19 21:33 Dose: 20 mg Montelukast Sodium (Singulair) 10 mg PO HS [facility] Last Admin: 04/14/19 21:54 Dose: 10 mg Ondansetron HCl (Zofran Inj) 4 mg IVP Q8H PRN PRN Reason: Nausea/Vomiting Last Admin: 04/13/19 01:44 Dose: 4 mg Polyethylene Glycol (Miralax) 17 gm PO DAILY [facility] Last Admin: 04/14/19 15:35 Dose: Not Given - Labs Labs: 04/14/19 05:30 04/14/19 05:30 - Constitutional Appears: Non-toxic, No Acute Distress - Head Exam Head Exam: NORMAL INSPECTION, NORMOCEPHALIC - Eye Exam Eye Exam: Normal appearance Pupil Exam: NORMAL ACCOMODATION - ENT Exam ENT Exam: Mucous Membranes Moist, Normal Exam - Neck Exam Neck Exam: Full ROM, Normal Inspection - Respiratory Exam Respiratory Exam: Decreased Breath Sounds, NORMAL BREATHING PATTERN - Cardiovascular Exam Cardiovascular Exam: REGULAR RHYTHM, +S1, +S2 Additional comments: Telemetry NSR - GI/Abdominal Exam GI & Abdominal Exam: Soft, Normal Bowel Sounds - Extremities Exam Extremities Exam: Full ROM, Normal Capillary Refill - Neurological Exam Neurological Exam: Alert, Awake, Oriented x3 - Psychiatric Exam Psychiatric exam: Normal Affect, Normal Mood - Skin Skin Exam: Dry, Normal Color, Warm Assessment and Plan - Assessment and Plan (Free Text) Assessment: A 64 year old obese female who came in to the ER due to headache and dizziness.History of hypertension, hyperlipidemia, former smoker, left foot surgery, neuropathy, TIA, asthma,bronchitis, arthritis, sleep apnea syndrome, vertigo, GERD, migraine, epilepsy during childhood. Evaluated last October 2018 when she was admitted due to abdominal pain and stress test was recommended and was scheduled last December but she did not show up for the test. Echo done on 11/28/18 showed LVEF 65%, trace MR,mild TR, RVSP 44 mmHg. Cardiac status stable. Pulmonary on consult. Had stress test yesterday. results pending, will follow up. Cardiac status stable. Denies dizziness. Plan: No distress,no dizziness Had stress test yesterday, pending results, will follow up Heart rate stable Blood pressure stable Cardiac status stable On Norvasc 10 mg daily,Lipitor 10 mg daily, PRN Hydralazine Continue current treatment and management Pulmonary on consult Will follow up Plan and treatment discussed with Dr. Ojeda
[2019-04-15 08:04] VITALS: BP 124/73; PULSE 69; RESP 20; TEMP 97.8; O2SAT 97
[2019-04-15] MEDS: Amoxicillin-Clav 875-125 mg Tab PO SCH (10:19)
[2019-04-15] MEDS: POLYETHYLENE GLYCOL 3350 17 GM/Dose PACKET PO SCH (10:20)
[2019-04-15] MEDS: MethylPREDNISolone 40 mg Vial IVP SCH (10:20)
[2019-04-15] MEDS: Fluticasone Nasal 50 mcg/Spray NS SCH (10:21)
--- NOTE | 2019-04-15 10:55 | PN ---
DATE: 04/15/2019 PULMONARY PROGRESS NOTE REFERRING PHYSICIAN: Shauna Meyer MD. SUBJECTIVE: The patient is seen lying in bed. No acute distress. No overnight events reported. Reports wearing CPAP machine last night. States she feels well this morning. No headache, rhinitis, cough, shortness of breath, chest pain, abdominal pain, nausea, vomiting, diarrhea, leg pain, leg swelling reported. PHYSICAL EXAMINATION: GENERAL: No acute distress. VITAL SIGNS: Blood pressure 124/73, pulse 69, temperature 97.8, oxygen saturation 97% on room air. HEENT: Moist mucous membranes. Mallampati score 4. Crowded airway. NECK: Supple. No JVD. LUNGS: Fair airflow bilaterally. CARDIOVASCULAR: S1 and S2. ABDOMEN: Soft, nontender. No distention. No organomegaly. EXTREMITIES: No bilateral lower extremity edema. NEUROLOGIC: Awake, alert and verbal. Following commands. MEDICATIONS: Reviewed. Tylenol 650 mg every 4 hours p.r.n., Norvasc 10 mg daily, Augmentin 875/125 mg 1 tab every 12 hours, Lipitor 40 mg with dinner, Flonase nasal spray daily, Neurontin 400 mg daily, hydralazine 10 mg 4 times a day p.r.n. systolic blood pressure greater than 160, Solu-Medrol 20 mg every 12 hours, Singulair 10 mg at bedtime, Zofran 4 mg IV push every 8 hours p.r.n., MiraLax 17 g daily. LABORATORY DATA: Reviewed. No new labs since yesterday. Stress test reports still pending. IMPRESSION AND PLAN: Sleep apnea syndrome, sinusitis, obstructive lung disease, hypertension, neuropathy, history of transient ischemic attack, asthma, arthritis, gastroesophageal reflux disease, history of epilepsy during childhood, pulmonary hypertension. Echocardiogram on 11/27/2018, showed ejection fraction 65%, trace mitral regurgitation, mild tricuspid regurgitation, right ventricular systolic pressure 44. Stress test report is still pending. Pulmonary point of view, continue antibiotic therapy, continue Flonase nasal spray, leukotriene inhibitors. Continue continuous positive airway pressure use at bedtime, sleep apnea precautions. Head of bed elevated 45 degrees, gastric prophylaxis, deep venous thrombosis prophylaxis. We will discontinue Solu-Medrol and start patient on 20 mg prednisone daily to taper off in the few days. We recommend the patient have full pulmonary function test as outpatient to evaluate obstructive lung disease. We will need followup for sleep apnea. Continue Cardiology followup. The patient was seen and examined with Dr. Ramachandran. Discussed assessment and plan as described above. The patient was seen and examined by Zahra Rock, nurse practitioner. Discussed assessment and plan as described above. Thank you for this consult and we will follow with you. Zahra Rock APN Conner Ramachandran MD
--- NOTE | 2019-04-15 14:08 | CARD ---
APPROVED REPORT Date of service: 04/14/2019 Protocol: LEXISCAN Test Type: Lexiscan Sestamibi Stress Test Attending Physician: Dr. Conner Julian Referring Physician: Dr. Shauna Meyer Test Indications: Chest Pain Height:5 ft 1 in Weight:180lbs Medications: TYLENOL, NORVASC, LIPITOR NEURONTIN, APRESOLINE, ZOFRAN Medical History: 64 YEAR OLD FEMALE WITH H/O HTN, HIGH CHOLESTEROL, TIA ASTHMA Target HR: 155 bpm Resting ECG: RSR. Resting Heart Rate: 72 bpm Resting Blood Pressure: 128/78mmHg Submaximum (85%): 132 bpm PROCEDURE Pharmacologic stress testing was performed using 0.4mg per 5ml of regadenoson given intravenously over 7-10 seconds. Reversal agent aminophyline 150 mg, given intravenously for Other. POST EXERCISE Reason for Termination: Protocol completed Target HR: No Max HR: 78 bpm 62% of Maximum Predicted HR: 155 bpm Exercise duration: 00:30 min:sec, 0 Stage Exercise capacity: 1.0METs Max Blood Pressure: 128/78mmHg Blood Pressure response to exercise: normal resting BP - appropriate response Heart Rate response to exercise: appropriate Chest Pain: No, none Angina index: 0 Arrhythmia: No, none ST Change: No, none Deviation: 0 mm TEST SUMMARY [id number]. INFUSIONDOSE 100:[id number]. [id number]. INTERPRETATION Stress EKG Conclusion: IV LEXISCAN NUCLEAR STRESS TEST NEGATIVE FOR CHEST PAIN AND NEGATIVE FOR ST-T CHANGES. NUCLEAR SCAN REPORT TO FOLLOW. Signed by Conner Julian Electronically Approved: 04/14/2019 14:00:41 EXAM: Myocardial Perfusion REST/STRESS Stress Test Type: Pharmacologic Imaging Protocol The imaging protocol used to acquire images was Rest Tc-99m/stress Tc-99m 1 day Rest Spect myocardial perfusion imaging was performed in supine position 45 minutes following the injection of 10.3 mCi of Tc-99 Myoview. At peak stress, the patient was injected intravenously with 30.2mCi of Tc-99 tetrofosmin after an infusion time of 0 minutes and 10 seconds. Gated Stress Spect was performed 65 minutes after intravenous Tc-99 Myoview injection. The images were gated to evaluate regional wall motion and calculate ventricular ejection fraction.Images were reconstructed using backfilter projection method in short horizontal and verticle long axis. Spect slices were generated. LV Perfusion The quality of the study is somewhat suboptimal due to motion duing the acquisition and significant breast attenuation on stress and rest studies. The left ventricle is normal in size. The right ventricle is unremarkable. The lung uptake is normal. The distribution of tracer reveals mildly decreased perfusion involving mid to distal anterior wall on the stress study. The remainder of the LV myocardium is unremarkable. The rest myocardial perfusion study shows partial improvemento the defects. Wall Motion Wall motion study shows good contractility of the left ventricle. LVEF = 80%. Conclusion 1. Probably normal SPECT myocardial perfusion study. 2. Partially reversible, anterior defect is most likely due to shifting breast artifact rather than ischemia. 3. Normal gated wall motion of the left ventricle.
[2019-04-15] MEDS ORDERED: Pneumococcal 23-Valent Vaccine IM ONE (15:03)
--- NOTE | 2019-04-15 20:39 | DS ---
The patient was seen and examined at bedside on 04/15/2019. CHIEF COMPLAINTS: Dizziness and lightheadedness. HISTORY OF PRESENT ILLNESS: Ms. Adriel Dukes is 64-year-old female with past medical history of hypertension, sleep apnea and vertigo. The patient was feeling off the balance and the patient states that symptoms started about 1 week ago and now unable to sleep due to issues with her CPAP machine. The patient states that she has been taking Tylenol for headache without improvement. Headache is like sharp throbbing pain, located over the left eyebrow. History of headache in the past. This time it is not getting better with Tylenol. We did CAT scan of the head, stress test done results are pending. Seen by the Sleep Specialist and Veterinary Poultry Inspector. Send home if cleared by Veterinary Poultry Inspector, if stress test is okay. Medications provided on the bedside. PAST MEDICAL HISTORY: History of migraine, hypertension, asthma, sleep apnea, respiratory distress, TIA, history of fall, left foot surgery and cyst removed from the head. FAMILY HISTORY: Father and mother noncontributory. HABITS: Never smoked. No drug. No ethanol. ALLERGIES: THE PATIENT IS NOT ALLERGIC WITH ANY MEDICATION. HOME MEDICATIONS: Gabapentin. REVIEW OF SYSTEMS: The patient was seen and examined at bedside. Looking comfortable. No fever. No chills. No hematuria. No hematochezia. No headache. No dizziness. No chest pain. No palpitation. PHYSICAL EXAMINATION: VITAL SIGNS: Temperature 98.6, blood pressure 124/73, pulse 69 and respiratory rate 18. HEENT: Head is normocephalic and atraumatic. Eyes, PERRLA. Extraocular muscles intact. Conjunctiva clear. Nose patent. Mucous membrane moist. NECK: Supple. No carotid bruits. No JVD or thyromegaly. CHEST: Bilaterally symmetrical. HEART: S1 and S2 positive. LUNGS: Clear to auscultation. ABDOMEN: Soft. Bowel sounds present. No organomegaly. EXTREMITIES: No edema. No cyanosis. NEUROLOGIC: The patient is awake and alert. Moving all four extremities. Do not look like in distress. MEDICATIONS: Tylenol, Norvasc, Augmentin, Lipitor, Flonase, Neurontin, hydralazine, Solu-Medrol, Singulair and Zofran. LABORATORY DATA: White blood cell is 5.0, hemoglobin 13.7, hematocrit 41.9 and platelet 261. Sodium 138, potassium 4.4, BUN 11, creatinine 0.4 and glucose 184. ASSESSMENT AND PLAN: Ms. Adriel Dukes is 64-year-old female with hyperglycemia and obstructive sleep apnea who came with chest pain, stress test is done, results are pending; history of asthma, dizziness regarding to this; gastroesophageal reflux disease and sinusitis, home with Augmentin; chronic obstructive pulmonary disease; hypertension; neuropathy; transient ischemic attack; history of epilepsy during childhood and pulmonary hypertension. Echocardiography done on 11/27/2018 it shows ejection fraction 65%. The patient on Solu-Medrol, by [employer] starting on Medrol Dosepak. Discharge home. Will followup in my office in next week. Medications provided on the bedside. We will follow up. Shauna Meyer MD MTDD
== END 2019-04-15 15:46 | disposition home or self-care (01) ==
LOC: ED 11:52 → ERH 13:53 → 3RSO 16:19 → UNDODISOB 04-14 17:42
PROVIDERS: ADMIT Internal Medicine; ATTEND Internal Medicine
DX: R42 Dizziness and giddiness (principal); G43.909 Migraine, unspecified, not intractable, without status migrainosus; R73.9 Hyperglycemia, unspecified; R07.9 Chest pain, unspecified; K21.9 Gastro-esophageal reflux disease without esophagitis; G47.33 Obstructive sleep apnea (adult) (pediatric); G40.909 Epilepsy, unspecified, not intractable, without status epilepticus; I10 Essential (primary) hypertension; E78.5 Hyperlipidemia, unspecified; J32.9 Chronic sinusitis, unspecified; G62.9 Polyneuropathy, unspecified; I27.20 Pulmonary hypertension, unspecified; Z68.34 Body mass index [BMI] 34.0-34.9, adult; E66.9 Obesity, unspecified; Z86.73 Personal history of transient ischemic attack (TIA), and cerebral infarction without residual deficits; Z87.891 Personal history of nicotine dependence
CPT/HCPCS: 36415; 70450; 71045; 78452; 80048; 80053; 80061; 82550; 82607; 82746; 83036; 83540; 83550; 83615; 83690; 83735; 84100; 84443; 84484; 85025; 85027; 90732; 93005; 93017; 94660; 96374; 99285; A9502; G0009; G0378; J1885; J2405; J2920